=== PATIENT | male | born 1960 | race African-American/Black ===

== ENCOUNTER → 2016-06-09 | Outpatient (CLI) | payer OTHER ==
[~2016-06-09] MED LIST: ACET-1311 PO; ATOR-24 PO; BENZ100C84 PO; CHECK FENTANYL; CMD5 PO; DRGTP12 TD; DXM/4 PO; DXM4 PO; GADAVIST IV PRN; HYDR2.5L TOP; INSDGIPEN SC; INSHRIE SC; INSU1INJ SC; IPRASOL4 INH; IPRASOL4 NEB; LPT40 PO; LVNIS60 SQ; NUTR-7 PO; OMEP40CA41 PO; ONDA4TAB46 PO; OPTIRAY 320 IV PRN; OXGN; PRVHFAIN INH; RXNS20 PO; RXNS5 PO; SYMIN INH; TRAM-10 PO; TRMO115 TOP; VNTHFA/IN INH; WARF3TAB6 PO
--- NOTE | 2016-06-09 08:53 | DIAGNOSTIC IMAGING REPORT ---
Brain MRI WITH AND WITHOUT CONTRAST HISTORY: Metastatic disease to the brain. Lung cancer. TECHNIQUE: Multiplanar multisequence MRI of the brain was performed both before and after the intravenous administration of contrast. COMPARISON STUDY: Brain MRI 02/17/2016. FINDINGS: There is a 5.5 cm area of restricted diffusion involving the left posterior parietal/temporal lobe junction. This is consistent with an acute infarct within the distal left MCA territory. There are additional scattered punctate foci of restricted diffusion seen within the bilateral parietal lobes posteriorly and bilateral frontal lobes at the high convexities. These may represent additional punctate acute/subacute infarcts or areas of metastatic disease. Small retention cyst within the left maxillary sinus. The mastoid air cells are clear. The left frontal lobe mass has slightly decreased in size. This currently measures 2.6 x 2.0 x 1.8 cm. This previous measured 3.3 x 1.9 x 2.0 cm. There is a new 4 mm enhancing lesion within the left occipital lobe on image 10. There is a 2 mm enhancing nodule within the right posterior parietal lobe on image 13 of the axial sequences. There may also be faint 2 mm enhancing nodules within the high convexity of the right frontal lobe on image 17 and image 19 of the axial postcontrast sequences. IMPRESSION: 1. Acute distal left MCA territory infarct. 2. Slight increase in size in the dominant left frontal lobe mass consistent with metastatic disease. 3. There are few new scattered punctate foci of enhancement within the right frontal lobe, bilateral parietal lobes, and left occipital lobe as described above. These could represent metastatic nodules or possibly punctate areas of acute/subacute infarcts. Some of these demonstrate restricted diffusion. One month brain MRI follow-up can be performed for further evaluation. Electronically signed by: Robles Ellison M.D. 06/09/2016 8:51 AM Dictated Date/Time: 06/09/2016 8:39 AM
--- NOTE | 2016-06-09 10:04 | DIAGNOSTIC IMAGING REPORT ---
CHEST CT WITH CONTRAST CT DOSE: 644.34 mGy.cm HISTORY: Lung cancer with metastatic disease to the brain. TECHNIQUE: Multiaxial CT images of the chest were performed following the intravenous administration of contrast. COMPARISON: Chest CTA 02/16/2016. FINDINGS: Severe emphysema. Large right apical bulla containing a small fluid level is not significantly changed. Interval progression of the heterogeneous opacification with enhancement within the right lower lobe. This is highly suspicious for recurrent malignancy. This area measures 6.6 cm. Right pleural effusion has decreased in size. Necrotic right upper lobe medial nodules and right peritracheal lymphadenopathy persists. Multiple new subcentimeter enhancing pleural nodules within the right lung base posteriorly consistent with metastatic disease. The largest measures 7 mm. The heart is normal in size. The thoracic aorta is normal in caliber. Linear filling defects seen within the left lower lobe pulmonary artery consistent with a pulmonary embolus. This is new from the prior study. Small hypodense lesions within the liver remains stable. The spleen and adrenal glands are unremarkable. No suspicious lytic or blastic osseous lesions. IMPRESSION: 1. Interval progression of tumor/metastatic disease within the right hemithorax as described above. 2. Interval development of a nonocclusive left lower lobe pulmonary embolus. 3. Emphysema. 4. Small right pleural fusion has decreased in size. Electronically signed by: Robles Ellison M.D. 06/09/2016 10:02 AM Dictated Date/Time: 06/09/2016 9:25 AM
== END ==
LOC: C.MRI 06:26
DX: Z08 Encounter for follow-up examination after completed treatment for malignant neoplasm (principal); Z85.118 Personal history of other malignant neoplasm of bronchus and lung; Z85.841 Personal history of malignant neoplasm of brain; Z92.3 Personal history of irradiation; I26.99 Other pulmonary embolism without acute cor pulmonale; J43.9 Emphysema, unspecified; R93.8 Abnormal findings on diagnostic imaging of other specified body structures; R90.89 Other abnormal findings on diagnostic imaging of central nervous system

== ENCOUNTER 2016-06-10 10:34 | Inpatient (IN) | payer OTHER ==
[~2016-06-10] VITALS: Ht 162.6 cm; Wt 53.1 kg
[~2016-06-10 10:34] MED LIST changes: -ATOR-24 PO; -CHECK FENTANYL; -CMD5 PO; -DRGTP12 TD; -DXM/4 PO; -GADAVIST IV PRN; -INSDGIPEN SC; -INSHRIE SC; -INSU1INJ SC; -IPRASOL4 INH; -LPT40 PO; -LVNIS60 SQ; -NUTR-7 PO; -OMEP40CA41 PO; -OPTIRAY 320 IV PRN; -OXGN; -RXNS20 PO; -RXNS5 PO; -SYMIN INH; -TRMO115 TOP; -VNTHFA/IN INH; -WARF3TAB6 PO
[2016-06-10 11:41] LABS: COMPLETE YES; EOS % 0.2 %; HEMATOCRIT 34.4 % (42-52); IG% 0.8 %; LYMPH % 8.5 %; LYMPH ABS # 0.99 K/uL (1.2-3.4); MEAN CELL VOLUME 94.5 fL (80-100); MEAN CORPUSCULAR HEMOGLOBIN 31.3 pg (25-34); MEAN CORPUSCULAR HGB CONC 33.1 g/dl (32-36); MEAN PLATELET VOLUME 9.1 fL (7.4-10.4); MONO % 12.9 %; NEUT % 77.6 %; PLATELET COUNT 108 K/uL (130-400); RED BLOOD COUNT 3.64 M/uL (4.7-6.1); WHITE BLOOD COUNT 11.66 K/uL (4.8-10.8)
[2016-06-10 11:50] LABS: CREATININE 0.87 mg/dl (0.60-1.40)
[2016-06-10 11:51] LABS: CALCIUM 8.7 mg/dl (8.5-10.1); POTASSIUM 3.5 mmol/L (3.5-5.1)
[2016-06-10 11:56] LABS: ALB/GLOB RATIO 0.6 (0.9-2); CKMB/CK RATIO 3.1 (0-3.0)
[2016-06-10 12:01] LABS: INR 1.1 (0.9-1.1); PARTIAL THROMBOPLASTIN RATIO 1.2; PROTHROMBIN TIME (PATIENT) 11.6 SECONDS (9.0-12.0)
--- NOTE | 2016-06-10 12:08 | DIAGNOSTIC IMAGING REPORT ---
CHEST ONE VIEW PORTABLE CLINICAL HISTORY: Shortness of breath COMPARISON STUDY: 02/16/2016 FINDINGS: The cardiac and mediastinal contours remain stable. There is a 10 cm right upper lobe cavity. There is right perihilar mass/consolidation. There are right lower lobe airspace opacities. There is right apical pleural thickening.[ IMPRESSION: 1. Developing right lower lobe airspace opacities, possibly representing a postobstructive pneumonitis. 2. Persistent right perihilar mass/consolidation 3. Stable right apical cavity 4. Persistent right apical pleural thickening Electronically signed by: Ab Koenig M.D. 06/10/2016 12:07 PM Dictated Date/Time: 06/10/2016 12:04 PM
[2016-06-10] MEDS ORDERED: SODIUM CHLORIDE 0.9% 1000ML 1,000 ML IV STA (12:13)
[2016-06-10] MEDS ORDERED: HEPARIN 25,000 UNIT/500ML D5W 500 ML IV PRN (12:45)
[2016-06-10] MEDS ORDERED: ONDANSETRON 4 MG TAB PO PRN (13:00)
[2016-06-10] MEDS ORDERED: ACETAMINOPHEN 325 MG TAB PO PRN (13:00)
[2016-06-10] MEDS ORDERED: MoRPHine SULFATE 2 MG/ML CARP IV PRN (13:00)
[2016-06-10] MEDS ORDERED: ONDANSETRON INJ 2 MG/ML 2 ML VIAL IV PRN (13:00)
[2016-06-10] MEDS ORDERED: NITROGLYCERIN 0.4 MG SL PER TAB CHARGE SL PRN (13:00)
[2016-06-10 13:12] VITALS: O2SAT 96; Ht 162.6 cm; Wt 53.1 kg
[2016-06-10] MEDS: HEPARIN IV LOW DOSE NO BOLUS SCH ×2 (13:51→15:00)
[2016-06-10 13:56] LABS: ESTIMATED AVERAGE GLUCOSE 103 mg/dl; HA1C FLAG Normal (Normal)
[2016-06-10 15:00] VITALS: BP 143/87; PULSE 105; TEMP 37; O2SAT 97
--- NOTE | 2016-06-10 15:16 | History and Physical ---
History & Physical Date & Time of Service: Jun 10, 2016 at 15:10 Chief Complaint: Chest Pain; Pulmonary Embolism Primary Care Physician: Rima DOOLEY History of Present Illness Source: patient, clinic records This is a 56 yo m with known stage IV lung carcinoma that is presenting to us from the [facility] with abnormal results of test. The patient was noted to have worsening SOB and pain with inspiration or cough for the past two days. The pain is in the right pectoris and extends to the RUQ. It is sharp and a 7/10. Only occurs with coughing/ deep breathing. The patient was evaluated with a CT chest which revealed progression of his lung cancer and a left sided PE. An MRI brain was also done and it revealed metastasis, mass in the right frontal region with edema (no midline shift or compression of ventricles) and no right posterior MCA infarct. The patient was completely unaware of the infarct and denies any neurological deficits recently. he was sent from the [facility] for therapy of his PE. - He was originally diagnosed with this cancer a year ago and was on palliative chemo. he has not received chemo in approx a year according to the patient. Past Medical/Surgical History Medical Problems: (1) Mal Murphy Bronch/Lung Nos Permanent Comment: Weight loss and shortness of breath Abnormal chest x-ray with CT showing a right upper lobe mass Abnormal PET/CT Status post bronchoscopy and biopsy 12/10/2014 showing non-small cell lung CA Admission for postobstructive pneumonia Initially to have debilitated for combined therapy and patient declined chemotherapy Status post completion of radiation therapy 03/02/2015 received 6660 cGy Systemic chemotherapy Syncopal episode and finding of brain metastasis Status post completion of radiation therapy utilizing stereotactic therapy completed 03/10/2016 received 2100 cGy Status: Chronic (2) Solitary Pulmonary Nodule Status: Chronic Family History Diabetes mellitus FATHER Social History Smoking Status: Former Smoker Drug Use: none Marital Status: single Occupational Status: other Immunizations History of Influenza Vaccine: Yes History of Tetanus Vaccine?: Unknown History of Pneumococcal: No History of Hepatitis B Vaccine: No Multi-Drug Resistant Organisms History of MDRO: No Allergies Coded Allergies: Talc (Verified Allergy, Severe, SOB - Baby Powder, 06/10/16) Home Medications Scheduled Acetaminophen (Tylenol), 650 MG PO Q6 Dexamethasone (Dexamethasone), 4 MG PO TID Hydrocortisone (Topical) (Hydrocortisone), 1 APPLN TOP TID Ipratropium-Albuterol (Duoneb), 1 AMP NEB BID Scheduled PRN Benzonatate (Tessalon Perles), 100 MG PO TID PRN for Cough Ondansetron Hcl (Zofran), 4 MG PO BID PRN for Nausea or Vomiting Tramadol (Ultram), 50 MG PO BID PRN for Pain Review of Systems Constitutional: + fever (had a fever of 104 two days prior and resolved with 2 tylenol, no fever since) Eyes: No worsening of vision ENT: No hearing loss Respiratory: + cough (dry), + dyspnea at rest, + dyspnea on exertion, + shortness of breath, No sputum, No wheezing Cardiovascular: + chest pain (as above) Abdomen: No diarrhea, No nausea, No pain, No vomiting Musculoskeletal: No joint pain, No muscle pain Genitourinary - Male: No dysuria, No hematuria Neurologic: No balance problems, No numbness/tingling, No paralysis, No vertigo , No weakness Psychiatric: No anxiety, No depression symptoms Endocrine: + fatigue Integumentary: No rash Physical Exam Vital Signs Date Time Temp Pulse Resp B/P Pulse Ox O2 Delivery O2 Flow Rate FiO2 06/10/16 14:53 92 137/83 97 06/10/16 13:12 96 Room Air 06/10/16 13:00 102 23 96 06/10/16 12:58 147/88 06/10/16 12:45 99 26 143/86 96 Room Air 2.0 Nasal Cannula 06/10/16 12:35 102 06/10/16 12:30 102 15 143/85 96 06/10/16 12:00 101 19 136/87 97 06/10/16 11:34 96 Nasal Cannula 2.0 06/10/16 11:30 102 28 130/84 97 06/10/16 10:53 96 Nasal Cannula 2.0 06/10/16 10:52 96 Nasal Cannula 2.0 06/10/16 10:49 36.5 103 18 151/85 94 Nasal Cannula 2.0 06/10/16 10:47 108 General Appearance: WD/WN, no apparent distress Head: normocephalic, atraumatic Eyes: normal inspection ENT: normal ENT inspection Neck: supple Respiratory/Chest: + decreased breath sounds (bilat bases, more echo like breath sounds in right upper long, occasional wheeze) Cardiovascular: regular rate, rhythm, no murmur Abdomen/GI: normal bowel sounds, soft, + pertinent finding (tender to palpation of RUQ) Back: normal inspection Extremities/Musculoskelatal: no calf tenderness, no pedal edema, normal range of motion Neurologic/Psych: doughnut maker II-XII nml as tested, no motor/sensory deficits, alert, normal mood/affect, oriented x 3 Skin: normal color, warm/dry, no rash Lymphatic: no adenopathy Diagnostics Laboratory Results Results Past 24 Hours Test 06/10/16 11:21 Range/Units White Blood Count 11.66 4.8-10.8 K/uL Red Blood Count 3.64 4.7-6.1 M/uL Hemoglobin 11.4 14.0-18.0 g/dL Hematocrit 34.4 42-52 % Mean Corpuscular Volume 94.5 80-100 fL Mean Corpuscular Hemoglobin 31.3 25-34 pg Mean Corpuscular Hemoglobin Concent 33.1 32-36 g/dl Platelet Count 108 130-400 K/uL Mean Platelet Volume 9.1 7.4-10.4 fL Neutrophils (%) (Auto) 77.6 % Lymphocytes (%) (Auto) 8.5 % Monocytes (%) (Auto) 12.9 % Eosinophils (%) (Auto) 0.2 % Basophils (%) (Auto) 0.0 % Neutrophils # (Auto) 9.06 1.4-6.5 K/uL Lymphocytes # (Auto) 0.99 1.2-3.4 K/uL Monocytes # (Auto) 1.50 0.11-0.59 K/uL Eosinophils # (Auto) 0.02 0-0.5 K/uL Basophils # (Auto) 0.00 0-0.2 K/uL RDW Standard Deviation 48.5 36.4-46.3 fL RDW Coefficient of Variation 14.1 11.5-14.5 % Immature Granulocyte % (Auto) 0.8 % Immature Granulocyte # (Auto) 0.09 0.00-0.02 K/uL Prothrombin Time 11.6 9.0-12.0 SECONDS Prothromb Time International Ratio 1.1 0.9-1.1 Activated Partial Thromboplast Time 31.3 21.0-31.0 SECONDS Partial Thromboplastin Ratio 1.2 Sodium Level 138 136-145 mmol/L Potassium Level 3.5 3.5-5.1 mmol/L Chloride Level 104 98-107 mmol/L Carbon Dioxide Level 24 21-32 mmol/L Anion Gap 10.0 3-11 mmol/L Blood Urea Nitrogen 16 7-18 mg/dl Creatinine 0.87 0.60-1.40 mg/dl Est Creatinine Clear Calc Drug Dose 70.8 ml/min Estimated GFR () 112.6 Estimated GFR (Non- 97.2 BUN/Creatinine Ratio 18.0 10-20 Random Glucose 123 70-99 mg/dl Estimated Average Glucose 103 mg/dl Hemoglobin A1c 5.2 4.5-5.6 % Calcium Level 8.7 8.5-10.1 mg/dl Total Bilirubin 0.6 0.2-1 mg/dl Aspartate Amino Transf (AST/SGOT) 12 15-37 U/L Alanine Aminotransferase (ALT/SGPT) 16 12-78 U/L Alkaline Phosphatase 106 45-117 U/L Total Creatine Kinase 36 39-308 U/L Creatine Kinase MB 1.1 0.5-3.6 ng/ml Creatine Kinase MB Ratio 3.1 0-3.0 Troponin I 0.163 0-0.045 ng/ml Total Protein 6.5 6.4-8.2 gm/dl Albumin 2.5 3.4-5.0 gm/dl Globulin 4.0 2.5-4.0 gm/dl Albumin/Globulin Ratio 0.6 0.9-2 Lipase 123 73-393 U/L Diagnostic Radiology Brain MRI WITH AND WITHOUT CONTRAST HISTORY: Metastatic disease to the brain. Lung cancer. TECHNIQUE: Multiplanar multisequence MRI of the brain was performed both before and after the intravenous administration of contrast. COMPARISON STUDY: Brain MRI 02/17/2016. FINDINGS: There is a 5.5 cm area of restricted diffusion involving the left posterior parietal/temporal lobe junction. This is consistent with an acute infarct within the distal left MCA territory. There are additional scattered punctate foci of restricted diffusion seen within the bilateral parietal lobes posteriorly and bilateral frontal lobes at the high convexities. These may represent additional punctate acute/subacute infarcts or areas of metastatic disease. Small retention cyst within the left maxillary sinus. The mastoid air cells are clear. The left frontal lobe mass has slightly decreased in size. This currently measures 2.6 x 2.0 x 1.8 cm. This previous measured 3.3 x 1.9 x 2.0 cm. There is a new 4 mm enhancing lesion within the left occipital lobe on image 10. There is a 2 mm enhancing nodule within the right posterior parietal lobe on image 13 of the axial sequences. There may also be faint 2 mm enhancing nodules within the high convexity of the right frontal lobe on image 17 and image 19 of the axial postcontrast sequences. IMPRESSION: 1. Acute distal left MCA territory infarct. 2. Slight increase in size in the dominant left frontal lobe mass consistent with metastatic disease. 3. There are few new scattered punctate foci of enhancement within the right frontal lobe, bilateral parietal lobes, and left occipital lobe as described above. These could represent metastatic nodules or possibly punctate areas of acute/subacute infarcts. Some of these demonstrate restricted diffusion. One month brain MRI follow-up can be performed for further evaluation. CHEST CT WITH CONTRAST CT DOSE: 644.34 mGy.cm HISTORY: Lung cancer with metastatic disease to the brain. TECHNIQUE: Multiaxial CT images of the chest were performed following the intravenous administration of contrast. COMPARISON: Chest CTA 02/16/2016. FINDINGS: Severe emphysema. Large right apical bulla containing a small fluid level is not significantly changed. Interval progression of the heterogeneous opacification with enhancement within the right lower lobe. This is highly suspicious for recurrent malignancy. This area measures 6.6 cm. Right pleural effusion has decreased in size. Necrotic right upper lobe medial nodules and right peritracheal lymphadenopathy persists. Multiple new subcentimeter enhancing pleural nodules within the right lung base posteriorly consistent with metastatic disease. The largest measures 7 mm. The heart is normal in size. The thoracic aorta is normal in caliber. Linear filling defects seen within the left lower lobe pulmonary artery consistent with a pulmonary embolus. This is new from the prior study. Small hypodense lesions within the liver remains stable. The spleen and adrenal glands are unremarkable. No suspicious lytic or blastic osseous lesions. IMPRESSION: 1. Interval progression of tumor/metastatic disease within the right hemithorax as described above. 2. Interval development of a nonocclusive left lower lobe pulmonary embolus. 3. Emphysema. 4. Small right pleural fusion has decreased in size. [~ rep ct add3]] CHEST ONE VIEW PORTABLE CLINICAL HISTORY: Shortness of breath COMPARISON STUDY: 02/16/2016 FINDINGS: The cardiac and mediastinal contours remain stable. There is a 10 cm right upper lobe cavity. There is right perihilar mass/consolidation. There are right lower lobe airspace opacities. There is right apical pleural thickening.[ IMPRESSION: 1. Developing right lower lobe airspace opacities, possibly representing a postobstructive pneumonitis. 2. Persistent right perihilar mass/consolidation 3. Stable right apical cavity 4. Persistent right apical pleural thickening EKG hr 102 Qtc 458 no ischemic changes sinus arrhythmia/ sinus tach no ectopic beats Impression Assessment and Plan This is a 56 yo m with know stage IV lung carcinoma that has progression of his disease, new MCA infarct and PE. We discussed the R/B/A of therapy for the PE because there is a lot of concern revolving around hemorrhage from the new infarct or masses. After discussing this with the patient it was decided that we would continue the heparin therapy and monitor neuro checks frequently. Left pulmonary embolus - risk factor known malignancy , resulted in elevated troponin indicating right heart strain -Heparin and once again the R/B/A were discussed and patient was agreeable to this therapy - neurochecks q 4 hours because of concern for evolving in hemorrhagic - recheck of CBC in the am - serial troponin - most likely supply and demand Left Distal MCA infarct, possibly secondary to emboli of an unknown source - Carotid doppler - echo in am - atorvastatin 40 mg started - FLP - HBA1C Non small cell lung cancer with brain metastasis - consult hem onc - o2 per nursing protocol - bmp in am to monitor for paraneoplastic abnormalities such as changes in sodium DVT Prophylaxis - heparin drip Resident Physician Supervision Note: I interviewed and examined the patient. Discussed with Dr. Stratton and agree with findings and plan as documented in the note. Any exceptions or clarifications are listed here: None Documented By: Valente Joseph some chest pain and sob. fever to 104 two days ago, took tylenol, no recurrence. nonproductive cough. no focal numbness or weakness. mostly sent to ER due to abnormal imaging but did note cp/sob vitals noted, nad, heent nc at mmm, cardio reg no r/m/g, lungs cta but different "echo-like" air sounds R mid/upper lung no r/r/w good effort no accessory muscle use. cn 2-12 grossly intact except ??very slight strabismus, no motor/sensory deficits, no pallor or icterus a/p metastatic lung ca - worsening - heme/onc eval, he expresses desire for treatment if possible CVA - appearing more than likely embolic given distribution. echo / carotids to eval for source (would also consider paradoxical embolus given PE - but since he'll need anticoagulated for this as well, no clear need to check TAINA that would not change treatment); check lipids/A1c/follow BP for completeness; w need for anticoagulation for PE - follow neurochecks closely. d/w pt and he agrees w this line of treatment/understands risks/benefits and complexity of the situation PE - d/w neurology regarding bleed risk w stroke - and not high enough to contraindicate anticoagulation. low dose heparin, follow sx recent fever - no other acute sx of infection - hasn't recurred, check procalcitonin Advanced Directives Existing Advance Directive: Yes Existing Living Will: Yes Existing Power of Cvor Nurse: Yes VTE Prophylaxis VTE Risk Assessment Done? Y/N: Yes Risk Level: Moderate Given or contraindicated: Other Anticoagulation Social Service Consult None Apply Note Total Time: Critical Care 30 - 74 minutes Additional Copies To Rima DOOLEY
--- NOTE | 2016-06-10 15:25 | EMERGENCY ROOM VISIT NOTE ---
History Report prepared by Mauroibarmida: Linden Mendoza Under the Supervision of: Dr. Valente New D.O. First contact with patient: 11:41 Chief Complaint: SHORTNESS OF BREATH Stated Complaint: EVAL Nursing Triage Summary: Pt presents to room B06 via Ambulance for evaluation of a blood clot in lungs. Pt reports he has ct scan of his chest yesterday. pt reports pain in left chest and shortness of breath at times. EMS reports that pt has hx of lung cancer with mets to brain. History of Present Illness The patient is a 56 year old male prisoner who presents to the Emergency Room with complaints of persistent shortness of breath for the past two days. The breathing difficulty is not worsened with exertion. He also complains of pain in his chest. The patient denies any recent headaches, trouble speaking, weakness, or numbness. He was never told that he had an infarct on brain MRI. The patient has a history of stage IV lung cancer, which was recently shown to be worsening on CT scan that he had yesterday. The patient was told that he would need blood thinners as the CT scan also showed a PE. The patient has not had any recent brain bleeds. He also denies rectal bleeding, hematuria, or hemoptysis. Patient denies headache, change in vision, fevers, nausea, vomiting , diarrhea, pain with urination, and melena. Source of History: patient Onset: two days Position: other (respiratory) Quality: other (short of breath) Timing: other (persistent) Associated Symptoms: + chest pain, No diarrhea, No fevers, No headache, No hematochezia, No melena, No nausea, No numbness, No urinary symptoms, No vomiting, No weakness Review of Systems See HPI for pertinent positives & negatives. A total of 10 systems reviewed and were otherwise negative. Past Medical & Surgical Medical Problems: (1) Chest pain (2) Mal Murphy Bronch/Lung Nos (3) Metastatic cancer to brain (4) Pulmonary embolism (5) Solitary Pulmonary Nodule Family History No pertinent family history Social History Smoking Status: Former Smoker Drug Use: none Marital Status: single Housing Status: other Occupation Status: other Current/Historical Medications Scheduled Acetaminophen (Tylenol), 650 MG PO Q6 Dexamethasone (Dexamethasone), 4 MG PO TID Hydrocortisone (Topical) (Hydrocortisone), 1 APPLN TOP TID Ipratropium-Albuterol (Duoneb), 1 AMP NEB BID Scheduled PRN Benzonatate (Tessalon Perles), 100 MG PO TID PRN for Cough Ondansetron Hcl (Zofran), 4 MG PO BID PRN for Nausea or Vomiting Tramadol (Ultram), 50 MG PO BID PRN for Pain Allergies Coded Allergies: Talc (Verified Allergy, Severe, SOB - Baby Powder, 06/10/16) Physical Exam Vital Signs Date Time Temp Pulse Resp B/P Pulse Ox O2 Delivery O2 Flow Rate FiO2 06/10/16 12:45 99 26 143/86 96 Room Air 2.0 Nasal Cannula 06/10/16 12:35 102 06/10/16 12:30 102 15 143/85 96 06/10/16 12:00 101 19 136/87 97 06/10/16 11:34 96 Nasal Cannula 2.0 06/10/16 11:30 102 28 130/84 97 06/10/16 10:53 96 Nasal Cannula 2.0 06/10/16 10:52 96 Nasal Cannula 2.0 06/10/16 10:49 36.5 103 18 151/85 94 Nasal Cannula 2.0 06/10/16 10:47 108 Physical Exam GENERAL: Sitting up in bed, disheveled, no acute distress, nontoxic. EYE EXAM: normal conjunctiva, PERRL and EOM's grossly intact OROPHARYNX: no exudate, no erythema, lips, buccal mucosa, and tongue normal and mucous membranes are moist NECK: supple, no nuchal rigidity, no adenopathy, non-tender LUNGS: Clear to auscultation. Normal chest wall mechanics HEART: Tachycardic. No murmurs, S1 normal and S2 normal ABDOMEN: abdomen soft, non-tender, normo-active bowel sounds, no masses, no rebound or guarding. BACK: Back is symmetrical on inspection and there is no deformity, no midline tenderness, no CVA tenderness. SKIN: no rashes and no bruising UPPER EXTREMITIES: upper extremities are grossly normal. LOWER EXTREMITIES: No pitting edema. NEURO EXAM: Normal sensorium, cranial nerves II-XII grossly intact, normal speech, no gross weakness of arms, no gross weakness of legs. Gross sensation intact. Medical Decision & Procedures ER Provider Diagnostic Interpretation: Transfer records: CT CHEST: Interval progression of tumor within right hemithorax. Left lower lobe PE. MRI BRAIN: Left MCA infarct with questionable additional mets vs infarcts. Xray results per the radiologist and my interpretation. CHEST ONE VIEW PORTABLE CLINICAL HISTORY: Shortness of breath COMPARISON STUDY: 02/16/2016 FINDINGS: The cardiac and mediastinal contours remain stable. There is a 10 cm right upper lobe cavity. There is right perihilar mass/consolidation. There are right lower lobe airspace opacities. There is right apical pleural thickening.[ IMPRESSION: 1. Developing right lower lobe airspace opacities, possibly representing a postobstructive pneumonitis. 2. Persistent right perihilar mass/consolidation 3. Stable right apical cavity 4. Persistent right apical pleural thickening Electronically signed by: Ab Koenig M.D. 06/10/2016 12:07 PM Dictated Date/Time: 06/10/2016 12:04 PM Laboratory Results 06/10/16 11:21 Red Blood Count 3.64, Mean Corpuscular Volume 94.5, Mean Corpuscular Hemoglobin 31.3, Mean Corpuscular Hemoglobin Concent 33.1, Mean Platelet Volume 9.1, Neutrophils (%) (Auto) 77.6, Lymphocytes (%) (Auto) 8.5, Monocytes (%) (Auto) 12.9, Eosinophils (%) (Auto) 0.2, Basophils (%) (Auto) 0.0, Neutrophils # (Auto ) 9.06, Lymphocytes # (Auto) 0.99, Monocytes # (Auto) 1.50, Eosinophils # (Auto ) 0.02, Basophils # (Auto) 0.00 06/10/16 11:21 Test 06/10/16 11:21 White Blood Count 11.66 K/uL (4.8-10.8) Red Blood Count 3.64 M/uL (4.7-6.1) Hemoglobin 11.4 g/dL (14.0-18.0) Hematocrit 34.4 % (42-52) Mean Corpuscular Volume 94.5 fL (80-100) Mean Corpuscular Hemoglobin 31.3 pg (25-34) Mean Corpuscular Hemoglobin Concent 33.1 g/dl (32-36) Platelet Count 108 K/uL (130-400) Mean Platelet Volume 9.1 fL (7.4-10.4) Neutrophils (%) (Auto) 77.6 % Lymphocytes (%) (Auto) 8.5 % Monocytes (%) (Auto) 12.9 % Eosinophils (%) (Auto) 0.2 % Basophils (%) (Auto) 0.0 % Neutrophils # (Auto) 9.06 K/uL (1.4-6.5) Lymphocytes # (Auto) 0.99 K/uL (1.2-3.4) Monocytes # (Auto) 1.50 K/uL (0.11-0.59) Eosinophils # (Auto) 0.02 K/uL (0-0.5) Basophils # (Auto) 0.00 K/uL (0-0.2) RDW Standard Deviation 48.5 fL (36.4-46.3) RDW Coefficient of Variation 14.1 % (11.5-14.5) Immature Granulocyte % (Auto) 0.8 % Immature Granulocyte # (Auto) 0.09 K/uL (0.00-0.02) Prothrombin Time 11.6 SECONDS (9.0-12.0) Prothromb Time International Ratio 1.1 (0.9-1.1) Activated Partial Thromboplast Time 31.3 SECONDS (21.0-31.0) Partial Thromboplastin Ratio 1.2 Anion Gap 10.0 mmol/L (3-11) Est Creatinine Clear Calc Drug Dose 70.8 ml/min Estimated GFR () 112.6 Estimated GFR (Non- 97.2 BUN/Creatinine Ratio 18.0 (10-20) Estimated Average Glucose 103 mg/dl Hemoglobin A1c 5.2 % (4.5-5.6) Calcium Level 8.7 mg/dl (8.5-10.1) Total Bilirubin 0.6 mg/dl (0.2-1) Aspartate Amino Transf (AST/SGOT) 12 U/L (15-37) Alanine Aminotransferase (ALT/SGPT) 16 U/L (12-78) Alkaline Phosphatase 106 U/L (45-117) Total Creatine Kinase 36 U/L (39-308) Creatine Kinase MB 1.1 ng/ml (0.5-3.6) Creatine Kinase MB Ratio 3.1 (0-3.0) Troponin I 0.163 ng/ml (0-0.045) Total Protein 6.5 gm/dl (6.4-8.2) Albumin 2.5 gm/dl (3.4-5.0) Globulin 4.0 gm/dl (2.5-4.0) Albumin/Globulin Ratio 0.6 (0.9-2) Lipase 123 U/L (73-393) Laboratory results per my review. Medications Administered Medications (Trade) Dose Ordered Sig/Jevon Route Start Time Stop Time Status Last Admin Dose Admin Sodium Chloride 1,000 ml @ 999 mls/hr Q1H1M STAT IV 06/10/16 12:13 06/10/16 13:13 DC 06/10/16 12:37 999 MLS/HR Heparin Sodium/ Dextrose (Heparin 25,000 Unit/500ml D5W) 500 ml @ 19 mls/hr Q24H PRN IV 06/10/16 12:45 06/10/16 13:43 DC 06/10/16 12:40 19 MLS/HR ECG Indication: SOB/dyspnea Rate (beats per minute): 102 Rhythm: sinus tachycardia Findings: other (normal axis, poor baseline, LVH) ED Course ED COURSE: Vital signs were reviewed and showed tachycardia. The patients medical record was reviewed The above diagnostic studies were performed and reviewed. ED treatments and interventions as stated above. 1200: The patient was evaluated in room B6. A complete history and physical examination was performed. 1213: NSS 1000 ml @ 999 mls/hr. 1213: Discussed the case with Dr. Mars, [facility] Hospitalist. The patient will be evaluated. 1215: Heparin Sodium / Dextrose 1 ea. 1215: Upon reevaluation, the patient is stable.I discussed my findings with the patient and he understands and agrees with the treatment plan. Based on the patients age, coexisting illnesses, exam and lab findings the decision to treat as an inpatient was made. The patient remained stable while under my care. The patient will be evaluated for further management. Medical Decision Differential diagnoses includes but is not limited to acute coronary syndrome, myocardial infarction, pericarditis, pulmonary embolus, aortic dissection, pneumonia, pneumothorax, musculoskeletal, shingles, esophageal. Patient is a 56-year-old male with known lung cancer who presents the ER with chest pain and tachycardia. Hit a CT of his chest performed yesterday which showed left lower lobe PEs. MRI was also performed yesterday which showed an acute stroke and possible multiple metastatic brain metastases versus multiple small emboli. Patient was updated regards to these findings. His troponin was elevated as expected. Patient was fairly nonfocal on exam. He had no bleeding risk factors and consequently was placed on heparin drip following discussion with internal medicine. I did not give him a bolus. I felt heparin was a status at this point as these small infarcts could be tiny emboli. He was tachycardic with a positive troponin I felt was prudent at this time start him on anticoagulation. Patient was updated bedside and is admitted to internal medicine. He is monitored closely. Consults Time Called: 1200 Consulting Physician: Dr. Mars [facility] Hospitalist Returned Call: 1213 1213: Discussed the case with Dr. Mars [facility]. The patient will be evaluated. Impression Primary Impression: Pulmonary embolism Additional Impressions: Metastatic disease Stroke Elevated troponin Critical Care I have personally spent 50 minutes of critical care time in the direct management of this patient. This includes bedside care, interpretation of diagnostic studies, and testing, discussion with consultants, patient, and family members, and other required patient management activities. This 50 minutes is in excess of all separately billable procedures. Scribe Attestation The scribe's documentation has been prepared under my direction and personally reviewed by me in its entirety. I confirm that the note above accurately reflects all work, treatment, procedures, and medical decision making performed by me. Departure Information Dispostion Being Evaluated By Hospitalist Referrals Rima DOOLEY (PCP) Patient Instructions My [facility] Health Problem Qualifiers Primary Impression: Pulmonary embolism Pulmonary embolism type: other Chronicity: acute Acute cor pulmonale presence: without acute cor pulmonale Qualified Codes: I26.99 - Other pulmonary embolism without acute cor pulmonale Additional Impressions: Stroke CVA mechanism: unspecified Qualified Codes: I63.9 - Cerebral infarction, unspecified
[2016-06-10 16:00] VITALS: O2SAT 97
--- NOTE | 2016-06-10 16:29 | DIAGNOSTIC IMAGING REPORT ---
BILATERAL CAROTID DOPPLER STUDY HISTORY: Left MCA stroke. COMPARISON: None. TECHNIQUE: Real-time, grayscale, and color Doppler sonography of the carotid arteries was performed. Imaging reviewed in the transverse and longitudinal planes. All measurements were calculated based on NASCET criteria. FINDINGS: Antegrade flow is seen in the bilateral vertebral arteries. The brachial pressures are hemodynamically similar. The peak systolic velocity within the right ICA is 64 cm/s. The right systolic ratio is 0.7. The peak systolic velocity within the left ICA is 70 cm/s. The left systolic ratio is 1.0. IMPRESSION: No hemodynamically significant stenosis seen within the carotid arteries. Electronically signed by: Robles Ellison M.D. 06/10/2016 4:27 PM Dictated Date/Time: 06/10/2016 4:26 PM
[2016-06-10] MEDS: HYDROCORTISONE 2.5% CR 30 GM TUBE EXT SCH ×2 (16:40→19:39)
[2016-06-10] MEDS: DEXAMETHASONE 4 MG TAB PO SCH ×2 (16:40→19:39)
[2016-06-10] MEDS ORDERED: PHARMACIST DISCHARGE MED REC CONSULT PRN (16:45)
[2016-06-10] MEDS: BENZONATATE 100MG CAP PO PRN (17:48)
[2016-06-10] MEDS ORDERED: ACETAMINOPHEN 325 MG TAB PO SCH (18:00)
[2016-06-10 19:29] VITALS: BP 126/78; PULSE 90; TEMP 37.1; O2SAT 97
[2016-06-10] MEDS: TRAMADOL HCL 50 MG TAB PO PRN (19:38)
[2016-06-10 19:54] LABS: PARTIAL THROMBOPLASTIN RATIO 1.4
[2016-06-10] MEDS: ALBUT/IPRATROP 3MG/0.5MG NEB 3 ML VIAL INH SCH (20:35)
[2016-06-10 20:42] VITALS: PULSE 114; O2SAT 95
[2016-06-10] MEDS ORDERED: HEPARIN IV BOLUS 4,000 UNIT in SYRINGE 0 ML IV ONE (21:00)
[2016-06-11] VITALS (13 sets, daily range): BP systolic 125–150; BP diastolic 68–84; PULSE 96–105; TEMP 36.4–36.9; O2SAT 90–96
[2016-06-11 03:51] LABS: PARTIAL THROMBOPLASTIN RATIO 1.9
[2016-06-11 06:42] LABS: HEMATOCRIT 30.4 % (42-52); MEAN CELL VOLUME 92.1 fL (80-100); MEAN CORPUSCULAR HEMOGLOBIN 30.6 pg (25-34); MEAN CORPUSCULAR HGB CONC 33.2 g/dl (32-36); MEAN PLATELET VOLUME 9.2 fL (7.4-10.4); PLATELET COUNT 130 K/uL (130-400); WHITE BLOOD COUNT 8.96 K/uL (4.8-10.8)
[2016-06-11] MEDS: ALBUT/IPRATROP 3MG/0.5MG NEB 3 ML VIAL INH SCH ×4 (07:11→19:52)
[2016-06-11 07:12] LABS: PARTIAL THROMBOPLASTIN RATIO 1.6
[2016-06-11 07:17] LABS: BUN/CREATININE RATIO 17.5 (10-20); CALCIUM 8.8 mg/dl (8.5-10.1); CHOLESTEROL/HDL RATIO 2.9; CREATININE 0.92 mg/dl (0.60-1.40); POTASSIUM 4.2 mmol/L (3.5-5.1)
[2016-06-11] MEDS: DEXAMETHASONE 4 MG TAB PO SCH ×3 (08:57→21:22)
[2016-06-11] MEDS: ATORVASTATIN 40 MG TAB PO SCH (08:57)
[2016-06-11] MEDS: HYDROCORTISONE 2.5% CR 30 GM TUBE EXT SCH ×3 (08:57→21:00)
[2016-06-11] MEDS: BENZONATATE 100MG CAP PO PRN ×2 (08:58→21:33)
[2016-06-11] MEDS ORDERED: ALBUTEROL 0.083% NEBU SOLN 3 ML VIAL INH PRN (09:00)
--- NOTE | 2016-06-11 09:07 | Progress Note ---
Subjective Date of Service: Jun 11, 2016. Problem List Medical Problems: (1) Dizziness Status: Acute (2) Elevated troponin Status: Acute (3) Metastatic disease Status: Acute (4) Metastatic lung cancer (metastasis from lung to other site) Status: Acute (5) Stroke Status: Acute (6) Syncope Status: Acute (7) Vasogenic brain edema Status: Acute Objective Vital Signs Date Time Temp Pulse Resp B/P Pulse Ox O2 Delivery O2 Flow Rate FiO2 06/11/16 07:52 36.4 96 16 125/68 95 06/11/16 04:00 95 Nasal Cannula 2.0 06/11/16 03:14 36.9 97 15 131/79 95 Nasal Cannula 2.0 06/11/16 00:00 91 Nasal Cannula 2.0 06/10/16 20:42 114 18 95 Nasal Cannula 2.0 06/10/16 20:00 Nasal Cannula 2.0 06/10/16 19:29 37.1 90 18 126/78 97 06/10/16 16:00 97 Nasal Cannula 2.0 06/10/16 15:00 97 Nasal Cannula 2.0 06/10/16 15:00 37.0 105 23 143/87 97 Nasal Cannula 2.0 06/10/16 14:53 92 137/83 97 06/10/16 13:12 96 Room Air 06/10/16 13:00 102 23 96 06/10/16 12:58 147/88 06/10/16 12:45 99 26 143/86 96 Room Air 2.0 Nasal Cannula 06/10/16 12:35 102 06/10/16 12:30 102 15 143/85 96 06/10/16 12:00 101 19 136/87 97 06/10/16 11:34 96 Nasal Cannula 2.0 06/10/16 11:30 102 28 130/84 97 06/10/16 10:53 96 Nasal Cannula 2.0 06/10/16 10:52 96 Nasal Cannula 2.0 06/10/16 10:49 36.5 103 18 151/85 94 Nasal Cannula 2.0 06/10/16 10:47 108 Laboratory Results Last 24 Hours Test 06/10/16 11:21 06/10/16 17:05 06/10/16 19:34 06/10/16 22:06 White Blood Count 11.66 K/uL Red Blood Count 3.64 M/uL Hemoglobin 11.4 g/dL Hematocrit 34.4 % Mean Corpuscular Volume 94.5 fL Mean Corpuscular Hemoglobin 31.3 pg Mean Corpuscular Hemoglobin Concent 33.1 g/dl Platelet Count 108 K/uL Mean Platelet Volume 9.1 fL Neutrophils (%) (Auto) 77.6 % Lymphocytes (%) (Auto) 8.5 % Monocytes (%) (Auto) 12.9 % Eosinophils (%) (Auto) 0.2 % Basophils (%) (Auto) 0.0 % Neutrophils # (Auto) 9.06 K/uL Lymphocytes # (Auto) 0.99 K/uL Monocytes # (Auto) 1.50 K/uL Eosinophils # (Auto) 0.02 K/uL Basophils # (Auto) 0.00 K/uL RDW Standard Deviation 48.5 fL RDW Coefficient of Variation 14.1 % Immature Granulocyte % (Auto) 0.8 % Immature Granulocyte # (Auto) 0.09 K/uL Prothrombin Time 11.6 SECONDS Prothromb Time International Ratio 1.1 Activated Partial Thromboplast Time 31.3 SECONDS 35.2 SECONDS Partial Thromboplastin Ratio 1.2 1.4 Sodium Level 138 mmol/L Potassium Level 3.5 mmol/L Chloride Level 104 mmol/L Carbon Dioxide Level 24 mmol/L Anion Gap 10.0 mmol/L Blood Urea Nitrogen 16 mg/dl Creatinine 0.87 mg/dl Est Creatinine Clear Calc Drug Dose 70.8 ml/min Estimated GFR () 112.6 Estimated GFR (Non- 97.2 BUN/Creatinine Ratio 18.0 Random Glucose 123 mg/dl Estimated Average Glucose 103 mg/dl Hemoglobin A1c 5.2 % Calcium Level 8.7 mg/dl Total Bilirubin 0.6 mg/dl Aspartate Amino Transf (AST/SGOT) 12 U/L Alanine Aminotransferase (ALT/SGPT) 16 U/L Alkaline Phosphatase 106 U/L Total Creatine Kinase 36 U/L Creatine Kinase MB 1.1 ng/ml Creatine Kinase MB Ratio 3.1 Troponin I 0.163 ng/ml 0.146 ng/ml Total Protein 6.5 gm/dl Albumin 2.5 gm/dl Globulin 4.0 gm/dl Albumin/Globulin Ratio 0.6 Lipase 123 U/L Procalcitonin 0.17 ng/mL Test 06/11/16 03:06 06/11/16 06:05 Activated Partial Thromboplast Time 48.9 SECONDS 42.6 SECONDS Partial Thromboplastin Ratio 1.9 1.6 White Blood Count 8.96 K/uL Red Blood Count 3.30 M/uL Hemoglobin 10.1 g/dL Hematocrit 30.4 % Mean Corpuscular Volume 92.1 fL Mean Corpuscular Hemoglobin 30.6 pg Mean Corpuscular Hemoglobin Concent 33.2 g/dl RDW Standard Deviation 46.2 fL RDW Coefficient of Variation 13.7 % Platelet Count 130 K/uL Mean Platelet Volume 9.2 fL Sodium Level 137 mmol/L Potassium Level 4.2 mmol/L Chloride Level 104 mmol/L Carbon Dioxide Level 23 mmol/L Anion Gap 10.0 mmol/L Blood Urea Nitrogen 16 mg/dl Creatinine 0.92 mg/dl Est Creatinine Clear Calc Drug Dose 67.0 ml/min Estimated GFR () 108.1 Estimated GFR (Non- 93.3 BUN/Creatinine Ratio 17.5 Random Glucose 151 mg/dl Calcium Level 8.8 mg/dl Troponin I 0.100 ng/ml Triglycerides Level 177 mg/dl Cholesterol Level 197 mg/dl HDL Cholesterol 69 mg/dl LDL Cholesterol, Calculated 93 mg/dl VLDL Cholesterol, Calculated 35 mg/dl Cholesterol/HDL Ratio 2.9 Assessment and Plan metastatic lung ca - worsening - heme/onc eval pending, he expresses desire for treatment if possible CVA - appearing more than likely embolic given distribution. carotids clear. echo pending (although w PE will really need anticoagulated anyway, so if occult afib, if paradoxical embolus, further w/u would not dramatically alter treatment). surprisingly no focal neuro deficits, clinically stable PE - d/w neurology regarding bleed risk w stroke - and not high enough to contraindicate anticoagulation. low dose heparin, follow sx, has improved. no evidence of bleeding recent fever - no other acute sx of infection - hasn't recurred, procalcitonin overall reassuring wheezing - strongly suspect baseline COPD. increase nebs to duonebs QID, add prn albuterol
--- NOTE | 2016-06-11 09:13 | DIAGNOSTIC IMAGING REPORT ---
CHEST ONE VIEW PORTABLE CLINICAL HISTORY: Shortness of breath COMPARISON STUDY: 06/10/2016 FINDINGS: The cardiac and mediastinal contours remain stable.r there is an 8.5 cm right upper lung zone cavity. There is persistent right perihilar mass/consolidation. Minor right basilar airspace opacities persist. There is underlying pulmonary emphysema.[ IMPRESSION: 1. Persistent right apical cavity 2. Persistent right perihilar mass/consolidation 3. Persistent subtle right basilar airspace opacities 4. Severe emphysema Electronically signed by: Ab Koenig M.D. 06/11/2016 9:12 AM Dictated Date/Time: 06/11/2016 9:11 AM
--- NOTE | 2016-06-11 14:37 | Oncology Consultation ---
Oncology/Heme Consultation Date of Consultation: Jun 11, 2016. Attending Physician: Valente Joseph D.O. Reason for Consultation: History of non-small cell lung carcinoma History of Present Illness Mr. uY a 56-year-old inmate that has a history of locally advanced non- small cell lung carcinoma. This dates back to November 2014. He'll presented with a very large right lung mass that appeared to involve the right lower lobe and right middle lobe. At that time we posed chemoradiotherapy. He refused chemotherapy. He did go on to receive radiation therapy. Following that and after further conversations he did receive single agent Taxol with very little change in his disease. His last PET scan shows stability. He did have the finding of a brain metastasis in February of last year and is status post stereotactic radiation for that. He now presents with a febrile episode as well as chest pain particular on the right side and in the middle of his chest. A chest CT scan shows a pneumonic process as well as probable progression of disease. A left-sided pulmonary embolus was also noted. He states that his weight has been stable although he appears to have lost weight to me. His difficult to grade his performance status and that he states he spends most of his days in his cell. He denies hemoptysis. He denies new headache. Past Medical/Surgical History Medical Problems: (1) Dizziness Status: Acute (2) Elevated troponin Status: Acute (3) Metastatic disease Status: Acute (4) Metastatic lung cancer (metastasis from lung to other site) Status: Acute (5) Stroke Status: Acute (6) Syncope Status: Acute (7) Vasogenic brain edema Status: Acute Family History Diabetes mellitus FATHER Social History Smoking Status: Former Smoker Drug Use: none Marital Status: single Housing Status: other Occupation Status: other Allergies Coded Allergies: Talc (Verified Allergy, Severe, SOB - Baby Powder, 06/10/16) Home Medications Scheduled Acetaminophen (Tylenol), 650 MG PO Q6 Dexamethasone (Dexamethasone), 4 MG PO TID Hydrocortisone (Topical) (Hydrocortisone), 1 APPLN TOP TID Ipratropium-Albuterol (Duoneb), 1 AMP NEB BID Scheduled PRN Benzonatate (Tessalon Perles), 100 MG PO TID PRN for Cough Ondansetron Hcl (Zofran), 4 MG PO BID PRN for Nausea or Vomiting Tramadol (Ultram), 50 MG PO BID PRN for Pain Current Inpatient Medications Current Inpatient Medications Medications (Trade) Dose Ordered Sig/Jevon Route Start Time Stop Time Status Last Admin Dose Admin Acetaminophen (Tylenol Tab) 650 mg Q4H PRN PO 06/10/16 13:00 07/10/16 12:59 Ondansetron HCl (Zofran Inj) 4 mg Q6H PRN IV 06/10/16 13:00 07/10/16 12:59 Nitroglycerin (Nitrostat Tab) 0.4 mg UD PRN SL 06/10/16 13:00 07/10/16 12:59 Morphine Sulfate (MoRPHine SULFATE INJ) 2 mg Q30M PRN IV 06/10/16 13:00 06/24/16 12:59 Benzonatate (Tessalon Perles Cap) 100 mg TID PRN PO 06/10/16 13:00 07/10/16 12:59 06/11/16 08:58 100 MG Dexamethasone (Decadron Tab) 4 mg TID PO 06/10/16 14:00 07/10/16 13:59 06/11/16 08:57 4 MG Ondansetron HCl (Zofran Tab) 4 mg BID PRN PO 06/10/16 13:00 07/10/16 12:59 Tramadol HCl (Ultram Tab) 50 mg BID PRN PO 06/10/16 13:00 07/10/16 12:59 06/10/16 19:38 50 MG Hydrocortisone (Hydrocortisone 2.5% Crm) 1 appln TID EXT 06/10/16 14:00 07/10/16 13:59 Atorvastatin Calcium 40 mg 40 mg QAM PO 06/11/16 09:00 07/11/16 08:59 06/11/16 08:57 40 MG Heparin Sodium/ Dextrose (Heparin 25,000 Unit/500ml D5W) 500 ml @ 15 mls/hr Q24H PRN IV 06/10/16 13:35 07/10/16 13:34 Miscellaneous Information (Pharmacist Discharge Med Rec Consult) 1 ea UD PRN N/A 06/10/16 16:45 07/10/16 16:44 Albuterol/ Ipratropium (Duoneb) 3 ml QIDR INH 06/11/16 12:00 2/27/17 11:59 Albuterol Sulfate (Ventolin 0.083% 2.5MG/3ML Neb) 2.5 mg Q6R PRN INH 06/11/16 09:00 07/11/16 08:59 Review of Systems Constitutional: Positive I believe for some weight loss although difficult to quantify and he states he's had a an intermittent fever with chills Eyes: Negative for event change of vision ENT: Negative for epistaxis, nasal discharge, sore throat, or deafness Cardiovascular: Positive for chest pain on the right side as well as parasternally Respiratory: Negative for new shortness of breath,hemoptysis, or purulent cough Gastrointestinal: Negative for diarrhea, hematemesis, melena, nausea, vomiting , or dyspepsia Integumentary (skin): Negative for rash or jaundice discoloration Genitourinary: Negative for urinary frequency, hematuria, or dysuria Neurological: Negative for weakness, seizure activity, headache, or dizziness Lymphatic/Hematologic: Negative for petechiae, bleeding or new adenopathy Musculoskeletal: Negative for new joint or back pain Allergic/Immunologic: Negative for unusual rash or pruritis. Physical Exam Date Time Temp Pulse Resp B/P Pulse Ox O2 Delivery O2 Flow Rate FiO2 06/11/16 12:01 36.7 103 18 134/72 96 Nasal Cannula 06/11/16 12:00 Nasal Cannula 2.0 06/11/16 08:00 Nasal Cannula 2.0 06/11/16 07:52 36.4 96 16 125/68 95 06/11/16 04:00 95 Nasal Cannula 2.0 06/11/16 03:14 36.9 97 15 131/79 95 Nasal Cannula 2.0 06/11/16 00:00 91 Nasal Cannula 2.0 06/10/16 20:42 114 18 95 Nasal Cannula 2.0 06/10/16 20:00 Nasal Cannula 2.0 06/10/16 19:29 37.1 90 18 126/78 97 06/10/16 16:00 97 Nasal Cannula 2.0 06/10/16 15:00 97 Nasal Cannula 2.0 06/10/16 15:00 37.0 105 23 143/87 97 Nasal Cannula 2.0 06/10/16 14:53 92 137/83 97 Constitutional: vitals are stable. Thin pleasant black gentleman Eyes: Eyes are JESSY EOMI without conjuctival erythema or icterus. ENT: External examination was negative for masses. Neck: Negative for masses or palpable thyromegaly Respiratory: Lung sounds were generally decreased bilaterally Cardiovascular: Heart was RRR without significant murmur, gallops aoe rubs Gastrointestinal: No palpable hepatic or splenomegaly. The abdomen was soft with normal bowel sounds. Lymphatic system: there was no palpable peripheral lymphadenopathy Musculoskeletal System: The musculoskeletal system seemed concordant with age. Skin: The skin was negative for jaundice. Neurologic exam: The exam was negative for any focal findings. Deep tendon reflexes were equal and symmetrical. Psychiatric exam: Was essentially negative with normal mood and effect. Extremities: Negative for edema erythema Laboratory Results Last 24 Hours Test 06/10/16 17:05 06/10/16 19:34 06/10/16 22:06 06/11/16 03:06 Procalcitonin 0.17 ng/mL Activated Partial Thromboplast Time 35.2 SECONDS 48.9 SECONDS Partial Thromboplastin Ratio 1.4 1.9 Troponin I 0.146 ng/ml Test 06/11/16 06:05 06/11/16 14:00 White Blood Count 8.96 K/uL Red Blood Count 3.30 M/uL Hemoglobin 10.1 g/dL Hematocrit 30.4 % Mean Corpuscular Volume 92.1 fL Mean Corpuscular Hemoglobin 30.6 pg Mean Corpuscular Hemoglobin Concent 33.2 g/dl RDW Standard Deviation 46.2 fL RDW Coefficient of Variation 13.7 % Platelet Count 130 K/uL Mean Platelet Volume 9.2 fL Activated Partial Thromboplast Time 42.6 SECONDS Partial Thromboplastin Ratio 1.6 Sodium Level 137 mmol/L Potassium Level 4.2 mmol/L Chloride Level 104 mmol/L Carbon Dioxide Level 23 mmol/L Anion Gap 10.0 mmol/L Blood Urea Nitrogen 16 mg/dl Creatinine 0.92 mg/dl Est Creatinine Clear Calc Drug Dose 67.0 ml/min Estimated GFR () 108.1 Estimated GFR (Non- 93.3 BUN/Creatinine Ratio 17.5 Random Glucose 151 mg/dl Calcium Level 8.8 mg/dl Troponin I 0.100 ng/ml Triglycerides Level 177 mg/dl Cholesterol Level 197 mg/dl HDL Cholesterol 69 mg/dl LDL Cholesterol, Calculated 93 mg/dl VLDL Cholesterol, Calculated 35 mg/dl Cholesterol/HDL Ratio 2.9 Assessment & Plan Probable progressive non-small cell lung carcinoma X-rays reviewed. He does appear to have a pneumonic process. Cultures should be done and antibiotics should be started. Anticoagulants are ongoing for the pulmonary embolus. It does appear that his disease has progressed in the right lung. We will try to arrange for an updated PET CT as an outpatient in our clinic in follow him up in our clinic and perhaps entertain the use of a checkpoint inhibitor for the progression of his non-small cell carcinoma. MRI of the head will also need to be repeated in about a month. There are some changes noted with yesterday's scan that suggested potential new metastasis although is far from clear and are described as punctate currently. I should note that he is aware that he has a terminal disease. He would like an attempt at resuscitation should it become necessary
[2016-06-11 15:54] LABS: PARTIAL THROMBOPLASTIN RATIO 1.3
--- NOTE | 2016-06-11 16:01 | ECHOCARDIOGRAM REPORT ---
*NOTICE TO RECEIVING LIBERTARIAN AGENCY This information is strictly Confidential and protected under [place] law. [place] law prohibits you from making any further disclosure of this information unless further disclosure is expressly permitted by the written consent of the person to whom it pertains or is authorized by law. A general authorization for the release of medical or other information is not sufficient for this purpose. Hospital accepts no responsibility if the information is made available to any other person, INCLUDING THE PATIENT. Interpretation Summary * Name: ANTONIO HERNANDEZ [id number] Study Date: 06/11/2016 02:06 PM BP: 143/87 mmHg * Patient Location: [facility] HR: 95 * : 1960 (M/d/yyyy) Gender: Male Height: 64 in * Age: 56 yrs Ethnicity: AA Weight: 115 lb * Ordering Physician: Karina Stratton * Referring Physician: Rima DOOLEY * Performed By: Hitesh Michelle RDCS * * Reason For Study: Stroke * BSA: 1.5 m2 * -- Conclusions -- * 1. Technically limited study. * 2. Normal LV size. Mild concentric LVH. * 3. Normal LV systolic function. LVEF 55-60%. No regional wall motion abnormalities. * 3. Normal RV size and function. * 4. Mild-moderate aortic insufficiency. * 5. Mild mitral regurgitation. * 6. Normal estimated RA pressure. * 7. No prior studies for comparison. Procedure Details * A complete two-dimensional transthoracic echocardiogram was performed (2D, M-mode, Doppler and color flow Doppler). * The study was technically difficult. * The study was technically limited. * Limited views were obtained. * There were technical limitations due to patient'sPoor acoustic windows secondary to severe lung disease. Left Ventricle * The left ventricle is grossly normal size. * There is mild concentric left ventricular hypertrophy. * Ejection Fraction = 55-60%. * No regional wall motion abnormalities noted. Right Ventricle * The right ventricle is grossly normal size. * The right ventricular systolic function is normal as assessed by tricuspid annular plane systolic excursion (TAPSE) (normal >1.5 cm). Atria * The left atrial size is normal. * Right atrial size is normal. * No ASD detected; PFO is not assessed. Mitral Valve * The mitral valve is grossly normal. * The mitral valve leaflets appear thickened, but open well. * There is no mitral valve stenosis. * There is mild mitral regurgitation. Tricuspid Valve * The tricuspid valve is not well visualized. * There is no tricuspid stenosis. * Significant tricuspid regurgitation is absent. Aortic Valve * The aortic valve opens well. * No hemodynamically significant valvular aortic stenosis. * Mild to moderate aortic regurgitation. Pulmonic Valve * The pulmonic valve is not well visualized. Great Vessels * The aortic root and proximal ascending aorta are normal sized. Pericardium/Pleural * There is no pericardial effusion. Great Vessels * Normal inferior vena cava size and collapsability with sniff indicates a normal right atrial pressure of 3 mmHg MMode 2D Measurements and Calculations IVSd 1.2 cm IVSs 1.6 cm LVIDd 4.5 cm LVIDs 3.2 cm LVPWd 1.2 cm LVPWs 1.5 cm IVS/LVPW 1.0 FS 29.7 % EDV(Teich) 91.6 ml ESV(Teich) 39.4 ml EF(Teich) 56.9 % EDV(cubed) 90.1 ml ESV(cubed) 31.3 ml EF(cubed) 65.3 % % IVS thick 37.7 % % LVPW thick 30.3 % LV mass(C)d 188.8 grams LV mass(C)dI 122.1 grams/m\S\2 LV mass(C)s 180.1 grams LV mass(C)sI 116.5 grams/m\S\2 SV(Teich) 52.2 ml SI(Teich) 33.7 ml/m\S\2 SV(cubed) 58.8 ml SI(cubed) 38.0 ml/m\S\2 EPSS 0.77 cm Ao root diam 3.3 cm Ao root area 8.7 cm\S\2 ACS 1.7 cm LA dimension 3.4 cm LA/Ao 1.0 LVOT diam 1.8 cm LVOT area 2.6 cm\S\2 LVAd ap4 27.8 cm\S\2 LVLd ap4 7.5 cm EDV(MOD-sp4) 86.0 ml LVAs ap4 15.5 cm\S\2 LVLs ap4 6.2 cm ESV(MOD-sp4) 32.0 ml EF(MOD-sp4) 62.8 % LVAd ap2 23.4 cm\S\2 LVLd ap2 6.9 cm EDV(MOD-sp2) 67.0 ml LVAs ap2 12.9 cm\S\2 LVLs ap2 5.7 cm ESV(MOD-sp2) 25.0 ml EF(MOD-sp2) 62.7 % SV(MOD-sp4) 54.0 ml SI(MOD-sp4) 34.9 ml/m\S\2 SV(MOD-sp2) 42.0 ml SI(MOD-sp2) 27.2 ml/m\S\2 Doppler Measurements and Calculations MV E max cari 85.4 cm/sec MV A max cari 72.1 cm/sec MV E/A 1.2 MV dec time 0.16 sec Ao V2 max 152.2 cm/sec Ao max PG 9.3 mmHg Ao max PG (full) 3.9 mmHg LAURENCE(V,A) 2.0 cm\S\2 LAURENCE(V,D) 2.0 cm\S\2 AI max cari 446.5 cm/sec AI max PG 79.7 mmHg AI dec slope 195.3 cm/sec\S\2 AI P1/2t 669.8 msec LV V1 max PG 5.3 mmHg LV V1 max 115.4 cm/sec
[2016-06-11] MEDS ORDERED: HEPARIN IV BOLUS 4,000 UNIT in SYRINGE 0 ML IV ONE (17:15)
[2016-06-11] MEDS: HEPARIN 25,000 UNIT/500ML D5W 500 ML IV PRN ×2 (17:17→21:16)
[2016-06-11 22:43] LABS: PARTIAL THROMBOPLASTIN RATIO 1.8
[2016-06-12] VITALS (8 sets, daily range): BP systolic 123–152; BP diastolic 71–85; PULSE 90–112; TEMP 36.6–36.8; O2SAT 90–97
[2016-06-12 06:39] LABS: HEMATOCRIT 28.5 % (42-52); MEAN CELL VOLUME 90.5 fL (80-100); MEAN CORPUSCULAR HEMOGLOBIN 30.8 pg (25-34); MEAN PLATELET VOLUME 9.1 fL (7.4-10.4); PLATELET COUNT 156 K/uL (130-400); RED BLOOD COUNT 3.15 M/uL (4.7-6.1)
[2016-06-12 06:48] LABS: PARTIAL THROMBOPLASTIN RATIO 1.3
[2016-06-12] MEDS: HEPARIN 25,000 UNIT/500ML D5W 500 ML IV PRN ×3 (07:01→14:58)
[2016-06-12 07:11] LABS: BUN/CREATININE RATIO 17.4 (10-20); CALCIUM 8.9 mg/dl (8.5-10.1); CREATININE 0.88 mg/dl (0.60-1.40)
[2016-06-12] MEDS: ALBUT/IPRATROP 3MG/0.5MG NEB 3 ML VIAL INH SCH ×4 (07:20→20:30)
[2016-06-12] MEDS: DEXAMETHASONE 4 MG TAB PO SCH ×3 (07:27→21:10)
[2016-06-12] MEDS: HYDROCORTISONE 2.5% CR 30 GM TUBE EXT SCH ×3 (07:28→21:00)
[2016-06-12] MEDS ORDERED: HEPARIN IV BOLUS 4,000 UNIT in SYRINGE 0 ML IV ONE ×2 (07:30→15:00)
[2016-06-12] MEDS: BENZONATATE 100MG CAP PO PRN (07:31)
[2016-06-12 13:59] LABS: PARTIAL THROMBOPLASTIN RATIO 1.4
[2016-06-12] MEDS: ATORVASTATIN 40 MG TAB PO SCH (14:23)
--- NOTE | 2016-06-12 15:45 | Progress Note ---
Subjective Date of Service: Jun 12, 2016. Subjective Pt evaluation today including: conversation w/ patient, physical exam, chart review, lab review, review of inpatient medication list breathing feels better but not great - still a lot of JAIME. was in bathroom getting washed up then PT came - during that whole time he had O2 off - then walked part way around bed and then noted that both feet diffusely got tingly. just feet not fingers, not around mouth. slowly resolved, then felt itchy. no back pain. never happened before. just got him worried. no further headaches. chest pain that faded to more R abdominal pain yesterday persists but slowly improving Problem List Medical Problems: (1) Dizziness Status: Acute (2) Elevated troponin Status: Acute (3) Metastatic disease Status: Acute (4) Metastatic lung cancer (metastasis from lung to other site) Status: Acute (5) Stroke Status: Acute (6) Syncope Status: Acute (7) Vasogenic brain edema Status: Acute Review of Systems Respiratory: + dyspnea on exertion, + shortness of breath Cardiac: + see HPI Neurologic: + numbness/tingling, + see HPI ros otherwise negative except for as above Objective Vital Signs Date Time Temp Pulse Resp B/P Pulse Ox O2 Delivery O2 Flow Rate FiO2 06/12/16 15:36 112 18 94 Nasal Cannula 2.0 06/12/16 15:26 36.6 112 18 123/75 94 Nasal Cannula 2.0 06/12/16 11:29 92 18 96 Nasal Cannula 2.0 06/12/16 11:27 108 94 06/12/16 08:10 Nasal Cannula 2.0 06/12/16 07:21 36.8 109 20 152/85 92 Nasal Cannula 2.0 06/12/16 07:21 95 18 97 Nasal Cannula 2.0 06/12/16 00:14 90 Nasal Cannula 2.0 06/11/16 23:52 92 Nasal Cannula 2.0 06/11/16 23:49 36.6 100 18 145/75 92 Room Air 06/11/16 19:52 98 18 90 Nasal Cannula 1.0 06/11/16 19:40 96 Nasal Cannula 2.0 06/11/16 16:00 96 Nasal Cannula 2.0 Physical Exam General Appearance: no apparent distress Eyes: EOMI ENT: hearing grossly normal Neck: trachea midline Respiratory/Chest: no respiratory distress, no accessory muscle use Extremities: normal range of motion Neurologic/Psychiatric: soap slabber II-XII nml as tested, alert, normal mood/affect, + pertinent finding (b/l diffuse feet bottoms and lateral / top with diminished/ tingly sensation - but totally symmetric. no motor weakness, no other sensory deficits. vascularly appears intact) Skin: normal color, warm/dry Laboratory Results Last 24 Hours Test 06/11/16 22:15 06/12/16 06:23 06/12/16 09:40 06/12/16 13:43 Activated Partial Thromboplast Time 46.9 SECONDS 33.4 SECONDS 36.3 SECONDS Partial Thromboplastin Ratio 1.8 1.3 1.4 White Blood Count 17.10 K/uL Red Blood Count 3.15 M/uL Hemoglobin 9.7 g/dL Hematocrit 28.5 % Mean Corpuscular Volume 90.5 fL Mean Corpuscular Hemoglobin 30.8 pg Mean Corpuscular Hemoglobin Concent 34.0 g/dl RDW Standard Deviation 44.5 fL RDW Coefficient of Variation 13.5 % Platelet Count 156 K/uL Mean Platelet Volume 9.1 fL Nucleated RBC Absolute Count (auto) 0.03 K/uL Nucleated Red Blood Cells % 0.2 % Sodium Level 139 mmol/L Potassium Level 4.0 mmol/L Chloride Level 104 mmol/L Carbon Dioxide Level 25 mmol/L Anion Gap 10.0 mmol/L Blood Urea Nitrogen 15 mg/dl Creatinine 0.88 mg/dl Est Creatinine Clear Calc Drug Dose 71.2 ml/min Estimated GFR () 112.1 Estimated GFR (Non- 96.7 BUN/Creatinine Ratio 17.4 Random Glucose 145 mg/dl Calcium Level 8.9 mg/dl C-Reactive Protein 2.55 mg/dl Procalcitonin 0.12 ng/mL Assessment and Plan metastatic lung ca - worsening - heme/onc eval pending, he expresses desire for treatment if possible CVA - appearing more than likely embolic given distribution. carotids clear. echo noted (although w PE will really need anticoagulated anyway, so if occult afib, if paradoxical embolus, further w/u would not dramatically alter treatment ). surprisingly no focal neuro deficits, clinically stable PE - d/w neurology regarding bleed risk w stroke - and not high enough to contraindicate anticoagulation. low dose heparin, follow sx, has improved. no evidence of bleeding. discussed transition ideally to lovenox since clot w malignancy - he notes he hates needles; discussed NOAC as possible alternative, but not as well studied in setting of malignancy. he'll consider. recent fever - no other acute sx of infection - hasn't recurred, procalcitonin overall reassuring. continue to hold abx wheezing - strongly suspect baseline COPD. increase nebs to duonebs QID, added prn albuterol. 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 given context of exertion without O2 = SOB/hyperventilating likely - suspect was paresthesiae from blowing off CO2. d/w pt to wear O2 w exertion, continue to follow sx, w/u further if recurrent.
[2016-06-12] MEDS: TRAMADOL HCL 50 MG TAB PO PRN (21:14)
[2016-06-13] VITALS (8 sets, daily range): BP systolic 112–138; BP diastolic 66–82; PULSE 74–110; TEMP 36.4–36.6; O2SAT 95–97
[2016-06-13] MEDS: HEPARIN 25,000 UNIT/500ML D5W 500 ML IV PRN ×3 (00:16→16:30)
[2016-06-13 06:10] LABS: HEMATOCRIT 27.6 % (42-52); MEAN CELL VOLUME 92.3 fL (80-100); MEAN CORPUSCULAR HEMOGLOBIN 30.4 pg (25-34); PLATELET COUNT 185 K/uL (130-400); RED BLOOD COUNT 2.99 M/uL (4.7-6.1); WHITE BLOOD COUNT 19.91 K/uL (4.8-10.8)
[2016-06-13 06:18] LABS: PARTIAL THROMBOPLASTIN RATIO 1.5
[2016-06-13 06:26] LABS: BUN/CREATININE RATIO 21.5 (10-20); CALCIUM 8.6 mg/dl (8.5-10.1); CREATININE 0.87 mg/dl (0.60-1.40); POTASSIUM 4.5 mmol/L (3.5-5.1)
[2016-06-13] MEDS: ALBUT/IPRATROP 3MG/0.5MG NEB 3 ML VIAL INH SCH ×4 (06:59→20:11)
[2016-06-13] MEDS ORDERED: HEPARIN IV BOLUS 4,000 UNIT in SYRINGE 0 ML IV ONE (08:30)
--- NOTE | 2016-06-13 08:33 | HEME/ONC PROGRESS NOTE ---
DATE: 06/13/2016 DIAGNOSES: 1. Pulmonary embolus. 2. Probable pneumonia. 3. Progressive nonsmall cell lung cancer. HISTORY OF PRESENT ILLNESS: Mr. Yu was admitted to [facility] on 06/11/2016. He apparently had developed fever and chest pain particularly on the right-sided with radiation in the middle of his chest. CT scan revealed a pneumonic process and probable disease progression. He has been placed on antibiotics and anti-inflammatories. His appetite remained stable. His only complaint today is that of right-sided chest wall pain and some shortness of breath. According to Dr. Baker's initial consult, we will consider further therapy. I would suspect PD-1 inhibitor once he is discharged from hospital. PHYSICAL EXAMINATION: GENERAL: He is in no acute distress. VITAL SIGNS: Temperature 36.5, pulse 74, respirations 18, blood pressure 120/66. SKIN: Without rash or lesion. HEENT: No buccal lesions or ulcerations. NECK: Supple. HEART: Regular rate and rhythm. No clicks, rubs, murmurs or gallops. LUNGS: Diminished breath sounds, expiratory wheezes heard throughout both ge. ABDOMEN: Soft, nontender, nondistended. EXTREMITIES: No clubbing, cyanosis or edema. NEUROLOGIC: Grossly intact. LABORATORY DATA: WBC count 19,900, hemoglobin 9.1, platelet count 185,000. Sodium 141, potassium 4.5, chloride 104, CO2 25, creatinine 0.87, BUN 19. IMPRESSION: 1. Pulmonary embolism. 2. Pneumonia. 3. Progressive nonsmall cell lung cancer. PLAN: Agree with current medical management. His pain seems to be reasonably managed as well. From an oncologic standpoint, nothing further to add until the patient is medically stable. We will make arrangements for outpatient followup to see Dr. Baker as I suspect he will initiate PD-1 inhibition for Mr. Yu's disease. Thank you for assisting us in the care of this very pleasant gentleman. HEENA
[2016-06-13] MEDS: DEXAMETHASONE 4 MG TAB PO SCH ×3 (08:44→20:26)
[2016-06-13] MEDS: HYDROCORTISONE 2.5% CR 30 GM TUBE EXT SCH ×3 (08:44→20:55)
[2016-06-13] MEDS: ATORVASTATIN 40 MG TAB PO SCH (08:45)
[2016-06-13 15:03] LABS: PARTIAL THROMBOPLASTIN RATIO 1.6
[2016-06-13] MEDS ORDERED: HEPARIN IV BOLUS 2,000 UNIT in SYRINGE 0 ML IV ONE (16:15)
--- NOTE | 2016-06-13 16:38 | Family Medicine Progress Note ---
Progress Note Date of Service Jun 13, 2016. Subjective Pt evaluation today including: conversation w/ patient Pain: Right lateral chest Voiding: no voiding problems Reports being short of breath with exertion Right sided chest wall tenderness Constitutional: No chills, No fever Eyes: No worsening of vision ENT: No hearing loss Respiratory: + dyspnea on exertion, + shortness of breath, + wheezing, No cough, No sputum Cardiovascular: No chest pain Abdomen: No diarrhea, No nausea, No pain, No vomiting Male : No dysuria, No urinary frequency Objective Physical Exam General Appearance: no apparent distress ENT: hearing grossly normal Neck: supple, no adenopathy Respiratory/Chest: no respiratory distress, no accessory muscle use, + decreased breath sounds, + wheezing, + pertinent finding (chest tenderness) Cardiovascular: regular rate, rhythm, no edema Abdomen: normal bowel sounds, non tender, soft Extremities: non-tender, normal inspection Neurologic/Psychiatric: automation engineer II-XII nml as tested, no motor/sensory deficits, alert, normal mood/affect, oriented x 3 Assessment and Plan This is a 56 y/o M who presents with worsening metastatic lung Ca, new CVA and Pulmonary Embolism. Metastatic Lung Ca: Heme/Onc will follow him outpatient and determine treatment since she expresses Evidence of Brain Mets. CVA -stable ? embolic, normal echo, normal carotids no residual neuro deficits PE: Currently on low dose heparin Patient declines Lovenox Start Xarelto tomorrow 15 mg BID for 21 days and then 20 mg Although there is some concern for > risk of bleeding with brain mets. Will talk to Dr. Chambers for suggestions. ?Pradaxa with reversal agent. Fever: no recurrence, clinically stable Heme/onc recc. noted- will hold on starting abx/ doing blood cultures. Mild COPD exacerbation: Continue Ventolin, Duonebs as wheezing still persists Code: Full DVT Proph Heparin Dispo: Anticipate [facility]/C back to [facility] if stable from pulmonary standpoint History Resident Physician Supervision Note: I was present with Dr. Telles during the history and exam. I discussed the case with the resident and agree with the findings and plan as documented in the note. An exceptions or clarifications are listed here Pt seen and examined at bedside. Early this AM had exacerbation of right sided chest pain which was slightly worse but still better than initial presentation, which has since improved once more. Accompanied by mild splinting/SOB, fatigue. Reports no n/v, lightheadedness, vision/hearing changes, n/t/w General Appearance: no apparent distress, thin Neck: non-tender, full range of motion, supple Respiratory: lungs clear, normal breath sounds, no respiratory distress, decreased breath sounds (diffusely), wheezing (scattered) Cardiovascular: normal peripheral pulses, regular rate, rhythm, no edema, no murmur Gastrointestinal: normal bowel sounds, non tender, soft, no organomegaly Assessment/Plan 56 y/o male h/o stage 4 lung ca w/ new MCA infarct and PE Metastatic lung cancer - heme/onc aware and input appreciated CVA - likely embolic. Carotid US and echo done. Without apparent neurologic deficit on examination PE - presently on heparin, refusing lovenox 2/2 doesn't want to inject. Will d/ w patient and heme/onc re: rec'd AC Recent fever - afebrile at present Wheezing - duoneb PRN
[2016-06-13] MEDS: BENZONATATE 100MG CAP PO PRN (20:27)
[2016-06-14] VITALS (7 sets, daily range): BP systolic 118–145; BP diastolic 68–82; PULSE 93–105; TEMP 36.3–36.8; O2SAT 92–98
[2016-06-14 00:09] LABS: PARTIAL THROMBOPLASTIN RATIO 1.7
[2016-06-14] MEDS ORDERED: HEPARIN IV BOLUS 2,000 UNIT in SYRINGE 0 ML IV ONE (00:45)
[2016-06-14] MEDS: HEPARIN 25,000 UNIT/500ML D5W 500 ML IV PRN (00:57)
[2016-06-14 07:16] LABS: HEMATOCRIT 27.7 % (42-52); MEAN CELL VOLUME 93.6 fL (80-100); MEAN CORPUSCULAR HEMOGLOBIN 31.1 pg (25-34); MEAN CORPUSCULAR HGB CONC 33.2 g/dl (32-36); MEAN PLATELET VOLUME 9.3 fL (7.4-10.4); PLATELET COUNT 178 K/uL (130-400); RED BLOOD COUNT 2.96 M/uL (4.7-6.1); WHITE BLOOD COUNT 19.57 K/uL (4.8-10.8)
[2016-06-14 07:29] LABS: PARTIAL THROMBOPLASTIN RATIO 2.1
[2016-06-14] MEDS: ALBUT/IPRATROP 3MG/0.5MG NEB 3 ML VIAL INH SCH ×3 (07:51→15:05)
[2016-06-14] MEDS ORDERED: RIVAROXABAN TAB 15 MG TAB PO SCH (09:00)
[2016-06-14] MEDS: HYDROCORTISONE 2.5% CR 30 GM TUBE EXT SCH ×2 (09:00→13:48)
[2016-06-14] MEDS: DEXAMETHASONE 4 MG TAB PO SCH ×2 (09:10→14:35)
[2016-06-14] MEDS: ATORVASTATIN 40 MG TAB PO SCH (09:10)
[2016-06-14] MEDS ORDERED: HEPARIN IV LOW DOSE NO BOLUS SCH (09:41)
[2016-06-14] MEDS ORDERED: HEPARIN 25,000 UNIT/500ML D5W 500 ML IV PRN (10:45)
[2016-06-14] MEDS ORDERED: ENOXAPARIN 60 MG/0.6 ML SYR SQ SCH ×2 (12:00→14:00)
[2016-06-14] MEDS ORDERED: OXGN (15:07)
[2016-06-14] MEDS ORDERED: IPRASOL4 INH ×2 (15:07→15:11)
[2016-06-14] MEDS ORDERED: CMD5 PO (15:07)
[2016-06-14] MEDS ORDERED: LVNIS60 SQ (15:07)
[2016-06-14] MEDS ORDERED: LPT40 PO (15:13)
--- NOTE | 2016-06-14 15:21 | Discharge Instructions ---
Discharge Instructions Admission Reason for Admission: Chest Pain; Pulmonary Embolism Discharge Discharge Diagnosis / Problem: Metastatic Lung Ca, CVA, PE Discharge Goals Goal(s): Decrease discomfort, Learn about illness, Diagnostic testing, Therapeutic intervention, Prevent Disease Progression Activity Recommendations Activity Limitations: resume your previous activity Lifting Limitations: gradually increase as tolerated Exercise/Sports Limitations: gradually increase as tolerated Shower/Bathe: no limitations . Instructions / Follow-Up Instructions / Follow-Up This patient was treated for Pulmonary embolus in the setting of Lung ca and also did present with a stroke. The patient has agreed to roughly four days of Lovenox bridging. BID therapeutic dosing. He received his first dose today around 1300 and will need a second dose at 1 am ton/Jun 15. He has also been started on 5 mg of Coumadin. Please check INR and titrate Coumadin until therapeutic (2-3). The patient will have Oncology follow up in 1-2 weeks for further evaluation and treatment options. He may need duonebs / supplemental O2. Please do not hesitate to contact us with questions. Current Hospital Diet Patient's current hospital diet: Regular Diet Discharge Diet Recommended Diet: Regular Diet Fluid Restriction: None Pending Studies Studies pending at discharge: no Laboratory Results Hemoglobin A1c Test 06/10/16 11:21 Range/Units Estimated Average Glucose 103 mg/dl Hemoglobin A1c 5.2 4.5-5.6 % Lipid Panel Test 06/11/16 06:05 Range/Units Triglycerides Level 177 H 0-150 mg/dl Cholesterol Level 197 0-200 mg/dl HDL Cholesterol 69 mg/dl Cholesterol/HDL Ratio 2.9 LDL Cholesterol, Calculated 93 mg/dl Medical Emergencies . Who to Call and When: Medical Emergencies: If at any time you feel your situation is an emergency, please call 911 immediately. . Non-Emergent Contact Non-Emergency issues call your: Primary Care Provider, Oncologist Call Non-Emergent contact if: temperature is above 101, your pain is not controlled, your pain is worsening . . "Provider Documentation" section prepared by Ashanti Hanson. VTE Core Measure Inpt VTE Proph given/why not?: Other Anticoagulation (therapeutic lovenox, coumadin)
[2016-06-14] MEDS ORDERED: WARFARIN SOD 5 MG TAB PO SCH (16:00)
--- NOTE | 2016-06-14 17:07 | Discharge Summary ---
Discharge Summary Admission Date: Jun 10, 2016 at 12:57 Discharge Date: Jun 14, 2016 Principal Diagnosis: Pulmonary embolism Problems/Secondary Diagnoses: MCA stroke Metastatic Lung Ca Immunizations: Have You Had Influenza Vaccine: Yes History of Tetanus Vaccine?: Unknown History of Pneumococcal: No History of Hepatitis B Vaccine: No Procedures: Brain MRI: IMPRESSION: 1. Acute distal left MCA territory infarct. 2. Slight increase in size in the dominant left frontal lobe mass consistent Chest CT: IMPRESSION: 1. Interval progression of tumor/metastatic disease within the right hemithorax as described above. 2. Interval development of a nonocclusive left lower lobe pulmonary embolus. 3. Emphysema. 4. Small right pleural fusion has decreased in size. Carotid Artery US Normal, no stenosis Echocardiogram * 1. Technically limited study. * 2. Normal LV size. Mild concentric LVH. * 3. Normal LV systolic function. LVEF 55-60%. No regional wall motion abnormalities. * 3. Normal RV size and function. * 4. Mild-moderate aortic insufficiency. * 5. Mild mitral regurgitation. * 6. Normal estimated RA pressure. * 7. No prior studies for comparison. Consultations: Hematology/oncology (Ashanti Telles MD) Medication Reconciliation New Medications: Ipratropium-Albuterol (Duoneb) 3 Ml Nebu 1 TREATMENT INH Q4H PRN for Shortness of Breath for 30 Days, INHA Oxygen (Oxygen) Gas 2 LITERS NA PRN for 30 Days Atorvastatin (Atorvastatin Calcium) 40 Mg Tab 40 MG PO QAM for 30 Days, #30 TAB Enoxaparin (Enoxaparin Sodium) 60 Mg/0.6 Ml Inj 50 MG SQ Q12 for 4 Days, #8 Warfarin Sod (Coumadin) 5 Mg Tab 5 MG PO DAILY@16 for 30 Days, #30 TAB Continued Medications: Acetaminophen (Tylenol) 325 Mg Tab 650 MG PO Q6, TAB Benzonatate (Tessalon Perles) 100 Mg Cap 100 MG PO TID PRN for Cough, CAP Dexamethasone (Dexamethasone) 4 Mg Tab 4 MG PO TID for 30 Days, #90 TAB 1 Refill Hydrocortisone (Topical) (Hydrocortisone) 2.5 % Lot 1 APPLN TOP TID, ML Ipratropium-Albuterol (Duoneb) 3 Ml Nebu 1 AMP NEB BID, INHA Ondansetron Hcl (Zofran) 4 Mg Tab 4 MG PO BID PRN for Nausea or Vomiting, TAB Tramadol (Ultram) 50 Mg Tab 50 MG PO BID PRN for Pain, TAB Discharge Exam This is a 56 yo m with known non-small cell lung carcinoma with progression of disease who presented with shortness of breath, fever, found to have a PE as well left MCA stroke. Neurologically, the patient had no residual deficits. The source is thought to be embolic though carotid doppler and tte were normal. There were no clear signs of a pneumonia, normal procalcitonin. For his PE, he was started on a heparin drip and monitored closely for neurological symptoms. Regarding terminal gauger anticoagulation, the patient was completely against lovenox due to the needles. However, we had multiple discussions with oncology/ coumadin clinic and the patient about studies on cancer patients being done primarily with lovenox/coumadin; not the NOAC. The patient eventually agreed to a few days of bridging with Lovenox and continuing with Coumadin. Risks and benefits of anticoagulation in the setting of brain mets and hemorrhage from the new infarct were discussed. With respect to his cancer, He will be followed outpatient by oncology for further treatment though his disease is progressive. Review of Systems: Constitutional: No chills, No fever Respiratory: + dyspnea on exertion, + shortness of breath, No cough, No dyspnea at rest, No sputum Cardiovascular: No chest pain Genitourinary - Male: No dysuria, No hematuria, No urinary frequency Physical Exam: General Appearance: no apparent distress Eyes: PERRL, EOMI ENT: hearing grossly normal Neck: supple, no adenopathy Respiratory/Chest: no respiratory distress, no accessory muscle use, + decreased breath sounds (RLL) Cardiovascular: regular rate, rhythm, no edema Abdomen / GI: normal bowel sounds, non tender, soft Extremities: no calf tenderness, no pedal edema Neurologic/Psychiatric: lead assistant manager II-XII nml as tested, no motor/sensory deficits , alert, normal mood/affect, oriented x 3 (Ashanti Telles MD) Hospital Course Total Time Spent: Greater than 30 minutes This includes examination of the patient, discharge planning, medication reconciliation, and communication with other providers. (Ashanti Telles MD) Total Time Spent: Greater than 30 minutes (Kelby Earl MD) Discharge Instructions Please refer to the electronic Patient Visit Report (Discharge Instructions) for additional information. (Ashanti Telles MD) History Resident Physician Supervision Note: I was present with Dr. Telles during the history and exam. I discussed the case with the resident and agree with the findings and plan as documented in the note. Any exceptions or clarifications are listed here. Pt reports improved right sided superficial chest pain, but is concerned regarding care upon returning to [facility] with present discharge plan. Reviewed in detail w/ Dr. Lin and Dr. Avalos re: options, will do transition w/ lovenox to coumadin and close monitoring while incarcerated. Reports no RICKS, lightheadedness, vision/ eharing changes, numbness, tingling, SOB. (Kelby Earl MD) General Appearance: no apparent distress Respiratory: lungs clear, no respiratory distress, decreased breath sounds (b/ l bases), other (improved but persistent superficial R chest pain posteriorly) Cardiovascular: normal peripheral pulses, regular rate, rhythm, no edema, no murmur Gastrointestinal: normal bowel sounds, non tender, soft, no organomegaly (Kelby Earl MD) Assessment/Plan 56 y/o male h/o stage 4 lung ca w/ new MCA infarct and PE Metastatic lung cancer - outpatient follow up with heme/onc CVA - likely embolic. Carotid US and echo done. Without apparent neurologic deficit on examination PE - Transition to coumadin from lovenox per heme/onc recommendations Wheezing - monitor, t/c albuterol PRN inhaler if recurs as outpatient. (Kelby Earl MD)
[2016-08-15] MEDS ORDERED: SYMIN INH (11:27)
[2016-08-15] MEDS ORDERED: DRGTP12 TD (11:27)
[2016-08-15] MEDS ORDERED: INSDGIPEN SC (11:27)
[2016-08-15] MEDS ORDERED: RXNS5 PO (11:27)
== END 2016-06-14 18:42 | disposition home or self-care (01) | DRG 175 ==
LOC: ENRESERVTM → ENRESERVDT → EDBD 10:34 → C.EDB 10:37 → C.2T 12:57 → C.MED 06-11 10:51 → EDBEDREQ 06-11 10:57
PROVIDERS: ADMIT Family Medicine; ATTEND Family Medicine
DX: I26.99 Other pulmonary embolism without acute cor pulmonale (principal); J18.9 Pneumonia, unspecified organism; I63.442 Cerebral infarction due to embolism of left cerebellar artery; C78.00 Secondary malignant neoplasm of unspecified lung; C79.31 Secondary malignant neoplasm of brain; J90 Pleural effusion, not elsewhere classified; J44.1 Chronic obstructive pulmonary disease with (acute) exacerbation; J43.9 Emphysema, unspecified; R91.1 Solitary pulmonary nodule; I08.0 Rheumatic disorders of both mitral and aortic valves; Z87.891 Personal history of nicotine dependence; Z83.3 Family history of diabetes mellitus

== ENCOUNTER → 2016-07-27 | Outpatient (CLI) | payer OTHER ==
[~2016-07-27] MED LIST changes: +ATOR-24 PO; +CHECK FENTANYL; +CMD5 PO; +DRGTP12 TD; +DXM/4 PO; +INSDGIPEN SC; +INSHRIE SC; +INSU1INJ SC; +IPRASOL4 INH; +LPT40 PO; +LVNIS60 SQ; +NUTR-7 PO; +OMEP40CA41 PO; +OXGN; -PRVHFAIN INH; +RXNS20 PO; +RXNS5 PO; +SYMIN INH; +TRMO115 TOP; +VNTHFA/IN INH; +WARF3TAB6 PO
--- NOTE | 2016-07-27 10:18 | DIAGNOSTIC IMAGING REPORT ---
PET/CT HISTORY: LUNG CANCER TECHNIQUE: PET/CT was performed from the base of the skull through the pelvis following the intravenous administration of 15 mCi of F18-FDG. Non-contrast CT imaging was performed over the same range without breath-hold for attenuation correction of PET images and anatomic correlation, but not for primary interpretation as it is not of standard diagnostic quality. CT DOSE: COMPARISON: Chest CT 06/09/2016. Brain MRI 06/09/2016. PET CT 11/02/2015. FINDINGS: HEAD AND NECK: The brain parenchyma with nonocclusive this study. Mild FDG uptake associated with the neck musculature is likely physiologic. There are no FDG avid or enlarged cervical lymph nodes. CHEST: There is again noted a 3.3 cm necrotic right apical medial mass. The peripheral FDG uptake associated with this lesion has progressed. This demonstrates an SUV max of 4.4, previously demonstrating SUV max of 2.2. Mildly enlarged right peritracheal lymph nodes remain stable and do not demonstrate abnormal FDG uptake. Progressive consolidation occupying the majority of the right lower lobe and within the right middle lobe. The right middle lobe consolidation demonstrates mild FDG uptake with an SUV max of 3.6. The dense right lower lobe consolidation demonstrates areas of intense FDG uptake with an SUV max of 6.6. Posterior basal pleural-based FDG avid nodules have increased in size from the recent chest CT and measure up to 11 mm, previously measuring 7 mm. These demonstrate an SUV max of 3.6. Partially loculated small right pleural effusion remains unchanged. Multifocal areas of mild FDG uptake which appear to be related to the diaphragm may represent physiologic uptake versus developing metastatic pleural disease. ABDOMEN/PELVIS: Below the diaphragm, tracer is distributed physiologically in the gastrointestinal and genitourinary tracts. Focal areas of intense FDG uptake seen within the small bowel bowel within the deep pelvis may be related to physiologic uptake. There is no corresponding abnormality by CT. MUSCULOSKELETAL: There is no FDG-avid or destructive bone lesion. IMPRESSION: 1. Progressive pleural and parenchymal FDG uptake within the right hemithorax as described above. This consistent with progression of the patient's metastatic disease. The mild FDG uptake associated with the right middle lobe consolidation could represent post radiation change. However, the intense areas of FDG uptake within the right lower lobe consolidation likely represent a combination of post radiation change and worsening metastatic disease. 2. Mild multifocal FDG uptake associated with the diaphragm which may represent physiologic uptake versus developing metastatic disease. This bears watching on future examinations. 3. Areas of intense FDG uptake within the small bowel at the deep pelvis are likely related to physiologic uptake. No corresponding abnormality by CT. Electronically signed by: Robles Ellison M.D. 07/27/2016 10:16 AM Dictated Date/Time: 07/27/2016 9:56 AM
== END | disposition home or self-care (01) ==
LOC: C.PET 06:24
PROVIDERS: ATTEND Internal Medicine
DX: C34.90 Malignant neoplasm of unspecified part of unspecified bronchus or lung (principal)

== ENCOUNTER 2016-08-07 13:44 | Inpatient (IN) | payer OTHER ==
[~2016-08-07] VITALS: Ht 162.6 cm; Wt 57.2 kg
[~2016-08-07 13:44] MED LIST changes: -ATOR-24 PO; -CHECK FENTANYL; -DRGTP12 TD; -DXM/4 PO; -INSDGIPEN SC; -INSHRIE SC; -INSU1INJ SC; -NUTR-7 PO; -OMEP40CA41 PO; -RXNS20 PO; -RXNS5 PO; -SYMIN INH; -TRMO115 TOP; -VNTHFA/IN INH; -WARF3TAB6 PO
[2016-08-07] MEDS ORDERED: SODIUM CHLORIDE 0.9% 1000ML 1,000 ML IV ONE (14:00)
[2016-08-07] MEDS ORDERED: ALBUT/IPRATROP 3MG/0.5MG NEB 3 ML VIAL INH STA (14:00)
[2016-08-07] MEDS ORDERED: MoRPHine SULFATE 10 MG/ML CARP/VIAL IV STA (14:03)
[2016-08-07] MEDS ORDERED: ONDANSETRON INJ 2 MG/ML 2 ML VIAL IV STA (14:03)
--- NOTE | 2016-08-07 14:04 | EMERGENCY ROOM VISIT NOTE ---
History Report prepared by [place]: Eladio Hoang Under the Supervision of: Dr. Ashish Matthew M.D. First contact with patient: 13:58 Chief Complaint: RESPIRATORY DISTRESS Stated Complaint: SHORTNESS OF BREATH History of Present Illness The patient is a 56 year old male who presents to the Emergency Room with complaints of persistent shortness of breath beginning earlier today. He notes he uses supplemental oxygen, and is currently being treated for cancer. His last chemotherapy treatment was yesterday. The patient was sent over from [facility]. Source of History: patient Onset: earlier today Position: other (lungs) Quality: other (shortness of breath) Timing: other (persistent) Associated Symptoms: + weakness Review of Systems See HPI for pertinent positives & negatives. A total of 10 systems reviewed and were otherwise negative. Past Medical & Surgical Medical Problems: (1) Chest pain (2) Mal Murphy Bronch/Lung Nos (3) Metastatic cancer to brain (4) Pulmonary embolism (5) Solitary Pulmonary Nodule Family History Diabetes mellitus FATHER Social History Smoking Status: Former Smoker Drug Use: none Marital Status: single Housing Status: other Occupation Status: other Current/Historical Medications Scheduled Acetaminophen (Tylenol), 650 MG PO TID Atorvastatin (Lipitor), 40 MG PO HS Dexamethasone (Decadron), 6 MG PO BID Nutritional Supplements (Boost), 1 BTL PO PC Omeprazole (Prilosec), 40 MG PO DAILY Oxygen (Oxygen), 2 LITERS NA UD Triamcinolone Acet (Triamcinolone Acetonide), 1 APPLN TOP TID Warfarin Sod (Jantoven), 1.5 MG PO DAILY Scheduled PRN Albuterol Hfa (Ventolin Hfa), 2 PUFFS INH QID PRN for Shortness of Breath Benzonatate (Tessalon Perles), 100 MG PO TID PRN for Cough Ipratropium-Albuterol (Duoneb), 1 TREATMENT INH QID PRN for Shortness of Breath Ondansetron Hcl (Zofran), 8 MG PO BID PRN for Nausea or Vomiting Tramadol (Ultram), 50 MG PO BID PRN for Pain Allergies Coded Allergies: Talc (Verified Allergy, Severe, SOB - Baby Powder, 06/10/16) Nafcillin (Verified Allergy, Unknown, sob,n/v, 08/07/16) Penicillins (Verified Allergy, Unknown, SHORTNESS OF BREATH, 08/07/16) Physical Exam Vital Signs Date Time Temp Pulse Resp B/P Pulse Ox O2 Delivery O2 Flow Rate FiO2 08/07/16 15:55 112 26 130/93 96 Room Air 08/07/16 14:43 120 99 08/07/16 14:42 120 21 99 BiPAP/CPAP 50 08/07/16 14:12 95 Non-Rebreather 15.0 08/07/16 14:10 95 Non-Rebreather 15.0 08/07/16 14:03 130 08/07/16 13:56 36.4 125 24 149/97 94 Non-Rebreather 15.0 Physical Exam GENERAL: Patient is pale in appearance, and appears acutely short of breath. HEAD: Normocephalic atraumatic EYES: Ocular movements intact pupils equal and react to light OROPHARYNX mucous membranes are moist no exudates present no erythema or edema present NECK: Supple no nuchal rigidity CHEST: Good equal expansion LUNGS: Clear and equal to auscultation CARDIAC: Normal S1 and S2 ABDOMEN: Soft nontender no guarding BACK: No CVA tenderness EXTREMITIES: No pain upon palpation normal muscle strength in all groups no clubbing cyanosis or edema NEURO: Patient is following commands is answering questions appropriately. Alert and oriented x3 Cranial Nerves 2-12 grossly intact Medical Decision & Procedures ER Provider Diagnostic Interpretation: Radiology results as stated below per my review and radiologist interpretation: CHEST ONE VIEW PORTABLE FINDINGS: A persistent right apical cavity is again noted. Severe emphysema is present. There is a small right pleural effusion. There is no evidence of pulmonary edema. Cardiac size is stable. There is mild right hemithorax volume loss. Right perihilar masslike opacity is again noted. Right lower lung airspace opacity with interstitial thickening has slightly increased. IMPRESSION: 1. Slight progression of the right perihilar mass-like opacity and right lower lung interstitial thickening. 2. Persistent right apical cavity. 3. Severe emphysema. Electronically signed by: Levy Ansari M.D. 08/07/2016 2:20 PM Dictated Date/Time: 08/07/2016 2:[address] ANGIOGRAPHY OF THE CHEST, PULMONARY EMBOLUS PROTOCOL FINDINGS: Multiple left-sided lobar and segmental pulmonary emboli are noted. Thrombus burden has likely increased since exam of June 09, 2016. The heart is mildly enlarged. Several necrotic right pleural implants/lymph nodes are noted. The largest is a 3.5 cm right paratracheal necrotic abnormality which is increased in size since exam of June 09, 2016. Numerous enhancing pleural nodules within the right hemithorax have increased increased since CT of October or 01/11/2016 and are similar to PET/CT of July 27, 2016. Severe emphysema is noted. A large right apical bulla containing a small fluid level is not significantly changed. Extensive masslike consolidation within the right lower lobe has progressed since exam of October or 01/11/2016 and is similar to recent CT of the chest. The appearance of the chest is similar to prior PET/CT. A small right pleural effusion is noted. No suspicious osseous lesions are present. There are several suspected hepatic cysts. IMPRESSION: 1. Several left sided lobar and segmental pulmonary emboli. Embolus burden is likely increased since CT of June 09, 2016. 2. Extensive malignancy within the right hemithorax including parenchymal and pleural metastases. No significant change since PET/CT of July 27, 2016. Progression of metastatic disease since exam of June 09, 2016. 3. Severe emphysema. Electronically signed by: Levy Ansari M.D. 08/07/2016 4:32 PM Dictated Date/Time: 08/07/2016 4:19 PM Laboratory Results 08/07/16 15:10 Red Blood Count 3.45, Mean Corpuscular Volume 86.1, Mean Corpuscular Hemoglobin 29.0, Mean Corpuscular Hemoglobin Concent 33.7, Mean Platelet Volume 8.8, Neutrophils (%) (Auto) 93.1, Lymphocytes (%) (Auto) 3.7, Monocytes (%) (Auto) 2.1, Eosinophils (%) (Auto) 0.0, Basophils (%) (Auto) 0.0, Neutrophils # (Auto) 21.47, Lymphocytes # (Auto) 0.86, Monocytes # (Auto) 0.49, Eosinophils # (Auto) 0.00, Basophils # (Auto) 0.01 08/07/16 15:10 Test 08/07/16 14:25 08/07/16 15:05 08/07/16 15:10 08/07/16 16:00 Influenza Type A (RT-PCR) Neg for Influ A (NEG) Influenza Type A Antigen Neg for Influ A (NEG) Influenza Type B Antigen Neg for Influ B (NEG) Influenza Type B (RT-PCR) Neg for Influ B (NEG) Bedside Hemoglobin 10.2 g/dl (14.0-18.0) Bedside Hematocrit 30 % (42-52) Bedside Sodium 131 mEq/L (135-144) Bedside Potassium 4.2 mEq/L (3.3-5.0) Bedside Chloride 97 mEq/L (101-112) Bedside Total CO2 24 mEq/l (24-31) Bedside Blood Urea Nitrogen 17 mg/dl (7-18) Bedside Creatinine 0.8 mg/dl (0.6-1.3) Bedside Glucose (other) 387 mg/dl (70-99) Bedside Ionized Calcium (Ivan) 1.12 mmol/l (1.12-1.32) White Blood Count 23.08 K/uL (4.8-10.8) Red Blood Count 3.45 M/uL (4.7-6.1) Hemoglobin 10.0 g/dL (14.0-18.0) Hematocrit 29.7 % (42-52) Mean Corpuscular Volume 86.1 fL (80-100) Mean Corpuscular Hemoglobin 29.0 pg (25-34) Mean Corpuscular Hemoglobin Concent 33.7 g/dl (32-36) Platelet Count 78 K/uL (130-400) Mean Platelet Volume 8.8 fL (7.4-10.4) Neutrophils (%) (Auto) 93.1 % Lymphocytes (%) (Auto) 3.7 % Monocytes (%) (Auto) 2.1 % Eosinophils (%) (Auto) 0.0 % Basophils (%) (Auto) 0.0 % Neutrophils # (Auto) 21.47 K/uL (1.4-6.5) Lymphocytes # (Auto) 0.86 K/uL (1.2-3.4) Monocytes # (Auto) 0.49 K/uL (0.11-0.59) Eosinophils # (Auto) 0.00 K/uL (0-0.5) Basophils # (Auto) 0.01 K/uL (0-0.2) RDW Standard Deviation 47.0 fL (36.4-46.3) RDW Coefficient of Variation 15.2 % (11.5-14.5) Immature Granulocyte % (Auto) 1.1 % Immature Granulocyte # (Auto) 0.25 K/uL (0.00-0.02) Nucleated RBC Absolute Count (auto) 0.11 K/uL (0-0) Nucleated Red Blood Cells % 0.5 % Tear Drop Cells 1+ Prothrombin Time 37.4 SECONDS (9.0-12.0) Prothromb Time International Ratio 3.3 (0.9-1.1) Activated Partial Thromboplast Time 38.1 SECONDS (21.0-31.0) Partial Thromboplastin Ratio 1.5 Anion Gap 11.0 mmol/L (3-11) Est Creatinine Clear Calc Drug Dose 56.1 ml/min Estimated GFR () 87.1 Estimated GFR (Non- 75.2 BUN/Creatinine Ratio 16.2 (10-20) Calcium Level 8.0 mg/dl (8.5-10.1) Total Bilirubin 0.3 mg/dl (0.2-1) Aspartate Amino Transf (AST/SGOT) 24 U/L (15-37) Alanine Aminotransferase (ALT/SGPT) 27 U/L (12-78) Alkaline Phosphatase 109 U/L (45-117) Total Creatine Kinase 72 U/L (39-308) Creatine Kinase MB 2.5 ng/ml (0.5-3.6) Creatine Kinase MB Ratio 3.5 (0-3.0) Troponin I 1.620 ng/ml (0-0.045) Total Protein 5.6 gm/dl (6.4-8.2) Albumin 2.3 gm/dl (3.4-5.0) Globulin 3.3 gm/dl (2.5-4.0) Albumin/Globulin Ratio 0.7 (0.9-2) Beta-Hydroxybutyric Acid 0.95 mg/dL (0.2-2.81) Urine Color YELLOW Urine Appearance CLEAR (CLEAR) Urine pH 5.5 (4.5-7.5) Urine Specific [place] 1.021 (1.000-1.030) Urine Protein 1+ (NEG) Urine Glucose (UA) 3+ (NEG) Urine Ketones NEG (NEG) Urine Occult Blood TRACE (NEG) Urine Nitrite NEG (NEG) Urine Bilirubin NEG (NEG) Urine Urobilinogen NEG (NEG) Urine Leukocyte Esterase NEG (NEG) Urine WBC (Auto) 0 /hpf (0-5) Urine RBC (Auto) 0-4 /hpf (0-4) Urine Hyaline Casts (Auto) 0 /lpf (0-5) Urine Epithelial Cells (Auto) 0-5 /lpf (0-5) Urine Bacteria (Auto) NEG (NEG) Labs reviewed by ED physician. Medications Administered Medications (Trade) Dose Ordered Sig/Jevon Route Start Time Stop Time Status Last Admin Dose Admin Sodium Chloride (Nss 1000ml) 1,000 ml @ 999 mls/hr Q1H1M ONCE IV 08/07/16 14:00 08/07/16 15:00 DC 08/07/16 14:27 999 MLS/HR Albuterol/ Ipratropium (Duoneb) 12 ml ONE STAT INH 08/07/16 14:00 08/07/16 14:04 DC 08/07/16 14:39 12 ML Ondansetron HCl (Zofran Inj) 4 mg NOW STAT IV 08/07/16 14:03 08/07/16 14:04 DC 08/07/16 14:28 4 MG Morphine Sulfate (MoRPHine SULFATE INJ) 2 mg STK-MED ONCE .ROUTE 08/07/16 14:20 08/07/16 14:23 DC 08/07/16 14:28 2 MG Morphine Sulfate 4 mg 4 mg STK-MED ONCE .ROUTE 08/07/16 14:20 08/07/16 14:24 DC 08/07/16 14:27 4 MG Cefepime HCl/ Dextrose (Maxipime IV/D5 100ml) 112.5 ml @ 200 mls/hr NOW STAT IV 08/07/16 15:26 08/07/16 15:59 DC 08/07/16 16:13 200 MLS/HR ECG Indication: SOB/dyspnea Rate (beats per minute): 123 Rhythm: sinus tachycardia Findings: no acute ischemic change, no ectopy ED Course 1358: Past medical records reviewed. The patient was evaluated in room C4. A complete history and physical examination was performed. 1400: Ordered Duoneb 12 ml INH, and NSS 1,000 ml @ 999 mls/hr IV. 1403: Ordered Zofran Inj 4 mg IV, and Morphine Sulfate 6 mg IV. 1526: Ordered Vancomycin HCl 1,000 mg/Sodium Chloride 270 ml @ 125 mls/hr IV, Levofloxacin 500 mg IV, and Cefepime HCl 2,000 mg/Dextrose 112.5 ml @ 200 mls/ hr IV. 1623: I discussed the patient's case with Dr. Mars, he has agreed to evaluate the patient for further management and care. Medical Decision Differential diagnosis: Etiologies such as infections, reactive airway disease, pneumonia, pneumothorax , COPD, CHF, cardiac ischemia, pulmonary embolism, musculoskeletal, gastrointestinal, as well as others were entertained. This is a 56-year-old male being treated for lung cancer. The patient received chemotherapy on Monday. He presents emergency Department with hypoxia. The patient is on Coumadin for history of blood clots related to his cancer. His INR is 3.3. The patient does have a high elevation in his white blood count. The patient was placed on BiPAP in the emergency department given an hour-long breathing treatment area he appears to have a pneumonia. He was started on Zosyn and Levaquin and vancomycin. I did discuss the case with the hospitalist service who agreed to admit the patient. Patient and care providers were in agreement with the treatment plan. Consults Time Called: 1615 Consulting Physician: [place]. [place], [facility] [place] Call: [phone] I discussed the patient's case with Dr. Mars, he has agreed to evaluate the patient for further management and care. Impression Primary Impression: Hypoxia Additional Impressions: Pneumonia Pulmonary embolus Critical Care I have personally spent greater than 30 minutes of critical care time in the direct management of this patient. This includes bedside care, interpretation of diagnostic studies, and testing, discussion with consultants, patient, and family members, and other required patient management activities. This 30 minutes is in excess of all separately billable procedures. Scribe Attestation The scribe's documentation has been prepared under my direction and personally reviewed by me in its entirety. I confirm that the note above accurately reflects all work, treatment, procedures, and medical decision making performed by me. Departure Information Dispostion Being Evaluated By Hospitalist Referrals Rima DOOLEY (PCP) Patient Instructions Asthma - [facility], COPD - [facility], Croup - [facility], My [facility] Health Problem Qualifiers Additional Impressions: Pneumonia Pneumonia type: due to unspecified organism Laterality: unspecified laterality Lung location: unspecified part of lung Qualified Codes: J18.9 - Pneumonia, unspecified organism Pulmonary embolus Pulmonary embolism type: other Chronicity: acute Acute cor pulmonale presence: without acute cor pulmonale Qualified Codes: I26.99 - Other pulmonary embolism without acute cor pulmonale
[2016-08-07] MEDS ORDERED: MoRPHine SULFATE 4 MG/ML 1 ML CARP\\VIAL ONE (14:20)
[2016-08-07] MEDS ORDERED: MoRPHine SULFATE 2 MG/ML CARP ONE (14:20)
--- NOTE | 2016-08-07 14:22 | DIAGNOSTIC IMAGING REPORT ---
CHEST ONE VIEW PORTABLE CLINICAL HISTORY: Sepsis. Shortness of breath. Lung cancer. COMPARISON STUDY: Chest CT June 09, 2016 and chest radiograph June 11, 2016. FINDINGS: A persistent right apical cavity is again noted. Severe emphysema is present. There is a small right pleural effusion. There is no evidence of pulmonary edema. Cardiac size is stable. There is mild right hemithorax volume loss. Right perihilar masslike opacity is again noted. Right lower lung airspace opacity with interstitial thickening has slightly increased. IMPRESSION: 1. Slight progression of the right perihilar mass-like opacity and right lower lung interstitial thickening. 2. Persistent right apical cavity. 3. Severe emphysema. Electronically signed by: Levy Ansari M.D. 08/07/2016 2:20 PM Dictated Date/Time: 08/07/2016 2:16 PM
[2016-08-07] MEDS ORDERED: OPTIRAY 320 IV PRN (14:30)
[2016-08-07] MEDS ORDERED: DXM/4 PO (14:31)
[2016-08-07] MEDS ORDERED: ATOR-24 PO (14:31)
[2016-08-07] MEDS ORDERED: WARF3TAB6 PO (14:32)
[2016-08-07] MEDS ORDERED: OMEP40CA41 PO (14:32)
[2016-08-07] MEDS ORDERED: OXGN (14:32)
[2016-08-07] MEDS ORDERED: VNTHFA/IN INH (14:32)
[2016-08-07] MEDS ORDERED: NUTR-7 PO (14:32)
[2016-08-07] MEDS ORDERED: IPRASOL4 INH (14:32)
[2016-08-07] MEDS ORDERED: TRMO115 TOP (14:32)
[2016-08-07 14:42] VITALS: PULSE 120; O2SAT 99
[2016-08-07 14:43] VITALS: PULSE 120; O2SAT 99
[2016-08-07 15:25] LABS: ISTAT CREATININE 0.8 mg/dl (0.6-1.3); ISTAT HEMOGLOBIN 10.2 g/dl (14.0-18.0); ISTAT IONIZED CALCIUM 1.12 mmol/l (1.12-1.32)
[2016-08-07 15:26] LABS: HEMATOCRIT 29.7 % (42-52); MEAN CELL VOLUME 86.1 fL (80-100); MEAN CORPUSCULAR HGB CONC 33.7 g/dl (32-36); RED BLOOD COUNT 3.45 M/uL (4.7-6.1); WHITE BLOOD COUNT 23.08 K/uL (4.8-10.8)
[2016-08-07] MEDS ORDERED: CEFEPIME IV 2,000 MG in DEXTROSE 5% 100ML 100 ML IV STA (15:26)
[2016-08-07] MEDS ORDERED: VANCOMYCIN INJ 1,000 MG in SODIUM CHLORIDE 0.9% 250ML 250 ML IV STA (15:26)
[2016-08-07] MEDS ORDERED: LEVAQUIN 500MG / 100ML D5W IV STA (15:26)
[2016-08-07 15:44] LABS: BUN/CREATININE RATIO 16.2 (10-20); CREATININE 1.1 mg/dl (0.60-1.40); POTASSIUM 4.2 mmol/L (3.5-5.1)
[2016-08-07 15:50] LABS: ALB/GLOB RATIO 0.7 (0.9-2); CKMB/CK RATIO 3.5 (0-3.0)
[2016-08-07 15:54] LABS: BETA-HYDROXYBUTYRATE 0.95 mg/dL (0.2-2.81); INR 3.3 (0.9-1.1); PARTIAL THROMBOPLASTIN RATIO 1.5; PROTHROMBIN TIME (PATIENT) 37.4 SECONDS (9.0-12.0)
[2016-08-07 16:00] LABS: MEAN PLATELET VOLUME 8.8 fL (7.4-10.4); PLATELET COUNT 78 K/uL (130-400)
[2016-08-07 16:04] LABS: BASO ABS # 0.01 K/uL (0-0.2); COMPLETE YES; IG% 1.1 %; LYMPH % 3.7 %; LYMPH ABS # 0.86 K/uL (1.2-3.4); MONO % 2.1 %; NEUT % 93.1 %; TEAR DROP CELLS 1+
[2016-08-07 16:30] LABS: INFLUENZA A PCR Neg for Influ A (NEG); INFLUENZA B PCR Neg for Influ B (NEG)
[2016-08-07 16:32] LABS: URINE APPEARANCE CLEAR (CLEAR); URINE BILIRUBIN NEG (NEG); URINE COLOR YELLOW; URINE EPITHELIAL CELL AUTO 0-5 /lpf (0-5); URINE NITRITE NEG (NEG); URINE PH 5.5 (4.5-7.5); URINE SPECIFIC GRAVITY 1.021 (1.000-1.030); UROBILINOGEN NEG (NEG); ZZUR CULT IF INDIC CLEAN CATCH NO
--- NOTE | 2016-08-07 16:33 | DIAGNOSTIC IMAGING REPORT ---
CT ANGIOGRAPHY OF THE CHEST, PULMONARY EMBOLUS PROTOCOL CLINICAL HISTORY: Hypoxia. Metastatic lung cancer. COMPARISON STUDY: Chest CT June 09, 2016, chest radiograph August 07, 2016 and PET/CT July 27, 2016. TECHNIQUE: Following IV administration of 114 mL of Optiray-320, helical axial images of the chest were obtained utilizing the pulmonary embolus protocol. Maximal intensity projections and sagittal and coronal reformats were viewed on an independent 3D workstation. IV contrast was administered without complication. CT DOSE: 226.63 mGy.cm FINDINGS: Multiple left-sided lobar and segmental pulmonary emboli are noted. Thrombus burden has likely increased since exam of June 09, 2016. The heart is mildly enlarged. Several necrotic right pleural implants/lymph nodes are noted. The largest is a 3.5 cm right paratracheal necrotic abnormality which is increased in size since exam of June 09, 2016. Numerous enhancing pleural nodules within the right hemithorax have increased increased since CT of October or 01/11/2016 and are similar to PET/CT of July 27, 2016. Severe emphysema is noted. A large right apical bulla containing a small fluid level is not significantly changed. Extensive masslike consolidation within the right lower lobe has progressed since exam of October or 01/11/2016 and is similar to recent CT of the chest. The appearance of the chest is similar to prior PET/CT. A small right pleural effusion is noted. No suspicious osseous lesions are present. There are several suspected hepatic cysts. IMPRESSION: 1. Several left sided lobar and segmental pulmonary emboli. Embolus burden is likely increased since CT of June 09, 2016. 2. Extensive malignancy within the right hemithorax including parenchymal and pleural metastases. No significant change since PET/CT of July 27, 2016. Progression of metastatic disease since exam of June 09, 2016. 3. Severe emphysema. Electronically signed by: Levy Ansari M.D. 08/07/2016 4:32 PM Dictated Date/Time: 08/07/2016 4:19 PM
[2016-08-07 16:47] LABS: MANUAL MICROSCOPIC REQUIRED? NO; REVIEW REQ? NO
[2016-08-07] MEDS ORDERED: TRAMADOL HCL 50 MG TAB PO PRN (17:15)
[2016-08-07] MEDS ORDERED: ONDANSETRON 4 MG TAB PO PRN (17:15)
[2016-08-07] MEDS ORDERED: ONDANSETRON INJ 2 MG/ML 2 ML VIAL IV PRN (17:15)
[2016-08-07] MEDS ORDERED: ALBUTEROL HFA 8 GM INHALER INH PRN (17:15)
[2016-08-07] MEDS ORDERED: ACETAMINOPHEN 325 MG TAB PO PRN (17:15)
[2016-08-07] MEDS ORDERED: CEFTRIAXONE SOD INJ 1 GM in DEXTROSE 5% ADD-VANTAGE 50ML 50 ML IV SCH (17:30)
--- NOTE | 2016-08-07 17:43 | History and Physical ---
History & Physical Date & Time of Service: Aug 07, 2016 at 17:24 Chief Complaint: Shortness Of Breath Primary Care Physician: Rima DOOLEY History of Present Illness Source: patient, hospital records Pt is a 56 yo male with known stage IV non small-cell lung carcinoma that has progression of his disease, MCA infarct and extensive PE who presents to ER with worsening sob and hemoptysis for past 3 days. Pt reports undergoing his first treatment for his cancer last monday. Pt states symptoms continued into today. Pt reports also associated right sided chest pain worse on inspiration. Pt states fevers and chills on and off as well. Pt was treated in May 2016 for new acute MCA infarct likely of embolic origin. Pt has been on coumadin for PE as well. CTA on arrival to ER noted increasing right sided tumor burden in addition to increasing PE despite supratherapeutic INR. Past Medical/Surgical History Medical Problems: (1) Malignant neoplasm of bronchus and lung, unspecified site Permanent Comment: Weight loss and shortness of breath Abnormal chest x-ray with CT showing a right upper lobe mass Abnormal PET/CT Status post bronchoscopy and biopsy 12/10/2014 showing non-small cell lung CA Admission for postobstructive pneumonia Initially to have debilitated for combined therapy and patient declined chemotherapy Status post completion of radiation therapy 03/02/2015 received 6660 cGy Systemic chemotherapy Syncopal episode and finding of brain metastasis Status post completion of radiation therapy utilizing stereotactic therapy completed 03/10/2016 received 2100 cGy Status: Chronic (2) Solitary Pulmonary Nodule Status: Chronic Family History Diabetes mellitus FATHER Social History Smoking Status: Former Smoker Drug Use: none Marital Status: single Occupational Status: other Immunizations History of Influenza Vaccine: Yes History of Tetanus Vaccine?: Unknown History of Pneumococcal: No History of Hepatitis B Vaccine: No Multi-Drug Resistant Organisms History of MDRO: No Allergies Coded Allergies: Talc (Verified Allergy, Severe, SOB - Baby Powder, 06/10/16) Nafcillin (Verified Allergy, Unknown, sob,n/v, 08/07/16) Penicillins (Verified Allergy, Unknown, SHORTNESS OF BREATH, 08/07/16) Home Medications Scheduled Acetaminophen (Tylenol), 650 MG PO TID Atorvastatin (Lipitor), 40 MG PO HS Dexamethasone (Decadron), 6 MG PO BID Nutritional Supplements (Boost), 1 BTL PO PC Omeprazole (Prilosec), 40 MG PO DAILY Oxygen (Oxygen), 2 LITERS NA UD Triamcinolone Acet (Triamcinolone Acetonide), 1 APPLN TOP TID Warfarin Sod (Jantoven), 1.5 MG PO DAILY Scheduled PRN Albuterol Hfa (Ventolin Hfa), 2 PUFFS INH QID PRN for Shortness of Breath Benzonatate (Tessalon Perles), 100 MG PO TID PRN for Cough Ipratropium-Albuterol (Duoneb), 1 TREATMENT INH QID PRN for Shortness of Breath Ondansetron Hcl (Zofran), 8 MG PO BID PRN for Nausea or Vomiting Tramadol (Ultram), 50 MG PO BID PRN for Pain Review of Systems Constitutional: + chills, + fever Eyes: No eye pain, No worsening of vision Respiratory: + cough, + dyspnea at rest, + dyspnea on exertion, + hemoptysis, + shortness of breath, + sputum Cardiovascular: + chest pain, No edema, No orthopnea Abdomen: No constipation, No diarrhea, No nausea, No pain, No vomiting Musculoskeletal: + joint pain, No muscle pain Genitourinary - Male: No dysuria, No hematuria, No urinary frequency Neurologic: No paralysis, No weakness Psychiatric: No anhedonism, No depression symptoms Physical Exam Vital Signs Date Time Temp Pulse Resp B/P Pulse Ox O2 Delivery O2 Flow Rate FiO2 08/07/16 16:59 120 20 126/87 96 BiPAP 08/07/16 15:55 112 26 130/93 96 Room Air 08/07/16 14:43 120 99 08/07/16 14:42 120 21 99 BiPAP/CPAP 50 08/07/16 14:12 95 Non-Rebreather 15.0 08/07/16 14:10 95 Non-Rebreather 15.0 08/07/16 14:03 130 08/07/16 13:56 36.4 125 24 149/97 94 Non-Rebreather 15.0 General Appearance: WD/WN, + mild distress Head: normocephalic, atraumatic Eyes: PERRL, EOMI Neck: supple, no adenopathy Respiratory/Chest: + decreased breath sounds, + rhonchi, + wheezing Cardiovascular: no gallop, no JVD, + tachycardia Abdomen/GI: non tender, soft Back: normal inspection, no CVA tenderness Neurologic/Psych: alert, normal mood/affect, oriented x 3 Diagnostics Laboratory Results Results Past 24 Hours Test 08/07/16 14:25 08/07/16 15:05 08/07/16 15:10 08/07/16 16:00 Range/Units Influenza Type A (RT-PCR) Neg for Influ A NEG Influenza Type A Antigen Neg for Influ A NEG Influenza Type B Antigen Neg for Influ B NEG Influenza Type B (RT-PCR) Neg for Influ B NEG Bedside Hemoglobin 10.2 14.0-18.0 g/dl Bedside Hematocrit 30 42-52 % Bedside Sodium 131 135-144 mEq/L Bedside Potassium 4.2 3.3-5.0 mEq/L Bedside Chloride 97 101-112 mEq/L Bedside Total CO2 24 24-31 mEq/l Anion Gap 15.0 11.0 3-11 mmol/L Bedside Blood Urea Nitrogen 17 7-18 mg/dl Bedside Creatinine 0.8 0.6-1.3 mg/dl Bedside Glucose (other) 387 70-99 mg/dl Bedside Ionized Calcium (Ivan) 1.12 1.12-1.32 mmol/l White Blood Count 23.08 4.8-10.8 K/uL Red Blood Count 3.45 4.7-6.1 M/uL Hemoglobin 10.0 14.0-18.0 g/dL Hematocrit 29.7 42-52 % Mean Corpuscular Volume 86.1 80-100 fL Mean Corpuscular Hemoglobin 29.0 25-34 pg Mean Corpuscular Hemoglobin Concent 33.7 32-36 g/dl Platelet Count 78 130-400 K/uL Mean Platelet Volume 8.8 7.4-10.4 fL Neutrophils (%) (Auto) 93.1 % Lymphocytes (%) (Auto) 3.7 % Monocytes (%) (Auto) 2.1 % Eosinophils (%) (Auto) 0.0 % Basophils (%) (Auto) 0.0 % Neutrophils # (Auto) 21.47 1.4-6.5 K/uL Lymphocytes # (Auto) 0.86 1.2-3.4 K/uL Monocytes # (Auto) 0.49 0.11-0.59 K/uL Eosinophils # (Auto) 0.00 0-0.5 K/uL Basophils # (Auto) 0.01 0-0.2 K/uL RDW Standard Deviation 47.0 36.4-46.3 fL RDW Coefficient of Variation 15.2 11.5-14.5 % Immature Granulocyte % (Auto) 1.1 % Immature Granulocyte # (Auto) 0.25 0.00-0.02 K/uL Nucleated RBC Absolute Count (auto) 0.11 0-0 K/uL Nucleated Red Blood Cells % 0.5 % Tear Drop Cells 1+ Prothrombin Time 37.4 9.0-12.0 SECONDS Prothromb Time International Ratio 3.3 0.9-1.1 Activated Partial Thromboplast Time 38.1 21.0-31.0 SECONDS Partial Thromboplastin Ratio 1.5 Sodium Level 136 136-145 mmol/L Potassium Level 4.2 3.5-5.1 mmol/L Chloride Level 99 98-107 mmol/L Carbon Dioxide Level 26 21-32 mmol/L Blood Urea Nitrogen 18 7-18 mg/dl Creatinine 1.10 0.60-1.40 mg/dl Est Creatinine Clear Calc Drug Dose 56.1 ml/min Estimated GFR () 87.1 Estimated GFR (Non- 75.2 BUN/Creatinine Ratio 16.2 10-20 Random Glucose 368 70-99 mg/dl Calcium Level 8.0 8.5-10.1 mg/dl Total Bilirubin 0.3 0.2-1 mg/dl Aspartate Amino Transf (AST/SGOT) 24 15-37 U/L Alanine Aminotransferase (ALT/SGPT) 27 12-78 U/L Alkaline Phosphatase 109 45-117 U/L Total Creatine Kinase 72 39-308 U/L Creatine Kinase MB 2.5 0.5-3.6 ng/ml Creatine Kinase MB Ratio 3.5 0-3.0 Troponin I 1.620 0-0.045 ng/ml Total Protein 5.6 6.4-8.2 gm/dl Albumin 2.3 3.4-5.0 gm/dl Globulin 3.3 2.5-4.0 gm/dl Albumin/Globulin Ratio 0.7 0.9-2 Beta-Hydroxybutyric Acid 0.95 0.2-2.81 mg/dL Urine Color YELLOW Urine Appearance CLEAR CLEAR Urine pH 5.5 4.5-7.5 Urine Specific [place] 1.021 1.000-1.030 Urine Protein 1+ NEG Urine Glucose (UA) 3+ NEG Urine Ketones NEG NEG Urine Occult Blood TRACE NEG Urine Nitrite NEG NEG Urine Bilirubin NEG NEG Urine Urobilinogen NEG NEG Urine Leukocyte Esterase NEG NEG Urine WBC (Auto) 0 0-5 /hpf Urine RBC (Auto) 0-4 0-4 /hpf Urine Hyaline Casts (Auto) 0 0-5 /lpf Urine Epithelial Cells (Auto) 0-5 0-5 /lpf Urine Bacteria (Auto) NEG NEG Test 08/07/16 17:20 08/07/16 17:21 Range/Units Microbiology Results 08/07/16 Blood Culture, Received Pending 08/07/16 Blood Culture, Received Pending Impression Assessment and Plan Pt is a 56 yo male with known stage IV non small cell lung carcinoma that has progression of his disease, MCA infarct and PE who presents with with sob and hemoptysis for past 3 days Acute on chronic resp failure likely multifactorial from extensive PE, increasing tumor burden and ?PNA. Will admit to tele at this time. Elev WBC of 23.08. Will start on rocephin, levaquin and vancomycin. Obtain sputum cx if possible, blood cx pending Hemoptysis likely from increasing PE and tumor burden and ?PNA, Heme/onc consulted, Hold coumadin for now. INR supratherapeutic. Hg stable, above baseline. Will not reverse coumadin due to worsening PE and sob. Await heme/onc recommendations Left ankle pain x 3 weeks, will repeat XR. Noted swelling and pain Elev trops likely from PE and right heart strain, no EKG changes, cont to trend trops Hx of distal MCA infarct 05/2016, possibly secondary to emboli of an unknown source Cont statin Non small cell lung cancer with brain metastasis, first treatment completed last saturday 08/05 consult heme onc, o2 per nursing protocol Chemical DVT Prophylaxis contraindicated Pt is FULL CODE VTE Prophylaxis VTE Risk Assessment Done? Y/N: Yes Risk Level: Moderate
--- NOTE | 2016-08-07 18:24 | DIAGNOSTIC IMAGING REPORT ---
LEFT ANKLE MIN 3 VIEWS ROUTINE CLINICAL HISTORY: Left ankle pain. COMPARISON: None FINDINGS: Alignment of the left ankle is anatomic. There is no acute fracture. Mild soft tissue swelling is present. Talar dome is intact. IMPRESSION: 1. No acute fracture or dislocation of the left ankle. 2. Soft tissue swelling of the left ankle. Electronically signed by: Levy Ansari M.D. 08/07/2016 6:23 PM Dictated Date/Time: 08/07/2016 6:22 PM
[2016-08-07] MEDS ORDERED: VANCOMYCIN CONSULT ACTIVE PRN (19:30)
[2016-08-07] MEDS ORDERED: CEFEPIME CONSULT ACTIVE PRN ×2 (19:30)
[2016-08-07 19:31] VITALS: BP 154/93; PULSE 128; TEMP 36.6; O2SAT 95; BMI 19.7
[2016-08-07] MEDS: ALBUT/IPRATROP 3MG/0.5MG NEB 3 ML VIAL INH SCH (19:35)
--- NOTE | 2016-08-07 19:38 | Pharmacy Progress Note ---
Pharmacy Antibiotic Consult Date of Service: Aug 07, 2016. Pharmacy Dosing Scope Pharmacy is consulted to initiate Vancomycin IV dosing therapy, order appropriate labs and adjust drug dose/frequency. Subjective The patient is a 56 year old male admitted on Aug 07, 2016 at 17:13 with possible pneumonia. Objective Height (Feet): 5 Height (Inches): 1.00 Weight (Kilograms): 54.100 Lab Results (24hrs): Laboratory Tests Test 08/07/16 15:10 BUN/Creatinine Ratio 16.2 Blood Urea Nitrogen 18 mg/dl Creatinine 1.10 mg/dl White Blood Count 23.08 K/uL Red Blood Count 3.45 M/uL Hemoglobin 10.0 g/dL Hematocrit 29.7 % Mean Corpuscular Volume 86.1 fL Mean Corpuscular Hemoglobin 29.0 pg Mean Corpuscular Hemoglobin Concent 33.7 g/dl Platelet Count 78 K/uL Mean Platelet Volume 8.8 fL Neutrophils (%) (Auto) 93.1 % Lymphocytes (%) (Auto) 3.7 % Monocytes (%) (Auto) 2.1 % Eosinophils (%) (Auto) 0.0 % Basophils (%) (Auto) 0.0 % Neutrophils # (Auto) 21.47 K/uL Lymphocytes # (Auto) 0.86 K/uL Monocytes # (Auto) 0.49 K/uL Eosinophils # (Auto) 0.00 K/uL Basophils # (Auto) 0.01 K/uL Assessment & Plan 56 yo M admitted with possible pneumonia/HCAP, initiated on broad spectrum antibiotics: Vancomycin, Levaquin, Cefepime IV. Pt currently receiving treatment for stage IV non-small cell lung cancer. Given immunosuppression and that he resides at group home, wanted to go more broad initially. Plan to follow up cultures tomorrow, including MRSA nasal swab, and deescalate if possible. Vancomycin * Loading dose: 1000 mg(18.5 mg/kg) IV X 1 dose given in the ED * Continue 750 mg IV every 12 hours. * Dose based on T1/2~11 hrs which is more in line with baseline renal function than current renal function * If renal function worsens, dose will need adjusted * Initiate dose sooner than 12 hours since loading dose not 25 mg/kg * Goal trough level estimate: between 15 - 20 mcg/mL. * A trough level has been ordered for: prior to the 1200 dose. Cefepime * Target dose 2 g IV every 8 hours * Reduce to 2 g IV every 12 hours for CrCL 30-60 mL/min Levaquin * 750 mg IV every 24 hours * No renal adjustment necessary Pharmacy will continue to follow and will adjust dose/frequency as necessary. Thank you
[2016-08-07 19:46] VITALS: PULSE 121; O2SAT 86
[2016-08-07 19:47] VITALS: PULSE 127; O2SAT 91
[2016-08-07] MEDS ORDERED: ALBUT/IPRATROP 3MG/0.5MG NEB 3 ML VIAL INH SCH (20:00)
[2016-08-07] MEDS: LEVOFLOXACIN / D5W 750 MG in PREMIXED IN D5W 150 ML IV SCH (20:39)
[2016-08-07] MEDS: SODIUM CHLORIDE 0.9% 1000ML 1,000 ML IV SCH (20:40)
[2016-08-07] MEDS: BOOST VANILLA PO SCH ×2 (21:00)
[2016-08-07] MEDS: ACETAMINOPHEN 325 MG TAB PO SCH (21:24)
[2016-08-07] MEDS: ATORVASTATIN 40 MG TAB PO SCH (21:24)
[2016-08-07] MEDS: DEXAMETHASONE 4 MG TAB PO SCH (21:24)
[2016-08-07 23:41] VITALS: BP 127/81; PULSE 119; TEMP 36.4; O2SAT 94
[2016-08-08] VITALS (13 sets, daily range): BP systolic 124–142; BP diastolic 74–87; PULSE 103–121; TEMP 36.4–37.1; O2SAT 50–99; BMI 20.9
[2016-08-08] MEDS: SODIUM CHLORIDE 0.9% 1000ML 1,000 ML IV SCH ×3 (03:26→23:58)
[2016-08-08] MEDS: CEFEPIME IV 2000 MG in DEXTROSE 5% 100ML IV SCH ×2 (03:53→16:48)
[2016-08-08 06:18] LABS: ESTIMATED AVERAGE GLUCOSE 189 mg/dl; HA1C FLAG Normal (Normal)
[2016-08-08 06:36] LABS: HEMATOCRIT 30.7 % (42-52); MEAN CELL VOLUME 87.7 fL (80-100); MEAN CORPUSCULAR HEMOGLOBIN 29.1 pg (25-34); MEAN CORPUSCULAR HGB CONC 33.2 g/dl (32-36); WHITE BLOOD COUNT 19.52 K/uL (4.8-10.8)
[2016-08-08 06:50] LABS: INR 2.1 (0.9-1.1); PROTHROMBIN TIME (PATIENT) 23.2 SECONDS (9.0-12.0)
[2016-08-08] MEDS: ALBUT/IPRATROP 3MG/0.5MG NEB 3 ML VIAL INH SCH ×4 (06:53→20:16)
[2016-08-08 07:08] LABS: BUN/CREATININE RATIO 19.2 (10-20); CALCIUM 8.4 mg/dl (8.5-10.1); CREATININE 0.84 mg/dl (0.60-1.40); POTASSIUM 4.2 mmol/L (3.5-5.1)
--- NOTE | 2016-08-08 07:09 | DIAGNOSTIC IMAGING REPORT ---
ULTRASOUND BILATERAL LOWER EXTREMITY VENOUS CLINICAL HISTORY: Left leg pain. COMPARISON STUDY: No priors. TECHNIQUE: Real-time, grayscale, and color Doppler sonography of the deep veins of the right and left lower extremity was performed from the inguinal crease to the calf. Compression and augmentation were utilized. FINDINGS: Right lower extremity: There is occlusive deep venous thrombosis seen throughout the right superficial femoral vein, within the popliteal vein, and extending into the calf. The right common femoral vein is patent and normally compressible. The greater saphenous vein any profunda femoris vein at the junction of the common femoral vein are clear. A small popliteal cyst measures 2.4 x 1.0 x 0.7 cm. Left lower extremity: There is nearly occlusive to occlusive deep venous thrombosis seen extending from the distal left iliac vein into the calf. Superficial venous thrombus is seen in the calf within the sural vein. The greater saphenous vein at the junction with the common femoral vein is clear. There is superficial thrombus within the profunda femoris vein. The IVC is patent proximally but not visualized in the mid to distal portions. IMPRESSION: Extensive bilateral lower extremity deep venous thrombosis as above. Electronically signed by: Loki Hinojosa M.D. 08/08/2016 7:08 AM Dictated Date/Time: 08/08/2016 7:05 AM
[2016-08-08 07:21] LABS: ALB/GLOB RATIO 0.6 (0.9-2)
[2016-08-08 07:22] LABS: BASO % 0.1 %; BASO ABS # 0.02 K/uL (0-0.2); COMPLETE YES; IG% 0.7 %; LYMPH % 1.5 %; LYMPH ABS # 0.29 K/uL (1.2-3.4); MONO % 5.1 %; NEUT % 92.6 %; PLATELET COUNT 82 K/uL (130-400); POLYCHROMASIA 1+
--- NOTE | 2016-08-08 07:48 | Hospitalist Progress Note ---
Hospitalist Progress Note Date of Service Aug 08, 2016. (Teresita Camilo PA-C) Subjective Pt evaluation today including: conversation w/ patient, physical exam, chart review, lab review, review of studies, review of inpatient medication list Pain: Moderate right chest pressure PO Intake: Fair Voiding: no voiding problems The patient was seen and examined this morning. Pt reports feeling chest pressure and tightness this morning. He denies that this is changed from previously. He feels short of breath currently. Pt wore bipap overnight, and was on HFNC this morning but sats were still fairly low. He is on 6L NC at bedside, with O2 sats still only at 87% at rest. He has a cough which is nonproductive. The patient reports starting chemotherapy last Monday, Opdivo He was seen by heme/onc this morning and reports there was discussion about further XRT and possibility of IVC filter placement. Constitutional: No chills, No fever Eyes: No diplopia, No redness ENT: No nasal symptoms, No sore throat, No trouble swallowing Respiratory: + cough, + dyspnea at rest, + shortness of breath, + wheezing Cardiovascular: + chest pain (Right sided), No palpitations Abdomen: No constipation, No diarrhea, No nausea, No pain, No vomiting Musculoskeletal: + swelling (RLE worse than the left, chronic), No joint pain Neurologic: + problem reported (uses wheelchair for ambulation), + weakness Skin: + itch, + rash (Teresita Camilo PA-C) Objective Vital Signs Date Time Temp Pulse Resp B/P Pulse Ox O2 Delivery O2 Flow Rate FiO2 08/08/16 07:30 36.5 104 20 124/81 99 BiPAP 08/08/16 04:00 BiPAP 50 08/08/16 03:41 36.4 120 25 124/87 96 BiPAP 08/08/16 03:40 121 96 50 08/08/16 00:02 BiPAP 50 08/07/16 23:41 36.4 119 26 127/81 94 BiPAP 08/07/16 19:47 127 91 50 08/07/16 19:46 121 22 86 Mask 7.0 08/07/16 19:31 36.6 128 30 154/93 95 BiPAP 08/07/16 19:03 115 99 08/07/16 16:59 120 20 126/87 96 BiPAP 08/07/16 15:55 112 26 130/93 96 Room Air 08/07/16 14:43 120 99 08/07/16 14:42 120 21 99 BiPAP/CPAP 50 08/07/16 14:12 95 Non-Rebreather 15.0 08/07/16 14:10 95 Non-Rebreather 15.0 08/07/16 14:03 130 08/07/16 13:56 36.4 125 24 149/97 94 Non-Rebreather 15.0 (Teresita Camilo, PA-C) Physical Exam General Appearance: WD/WN, + mild distress, + thin, + pertinent finding ( ) Eyes: PERRL, EOMI ENT: hearing grossly normal, pharynx normal, + pertinent finding (mucous membranes slightly dry) Neck: supple, thyroid normal Respiratory/Chest: no accessory muscle use, + plerual rub (Wearing 6L O2 via NC , +coarse breath sounds throughout, +expiratory wheeze, +nonproductive cough. ) , + pertinent finding Cardiovascular: regular rate, rhythm, no murmur, + tachycardia Abdomen: non tender, soft, + pertinent finding (distended abdomen, + hypoactive bowel sounds. ) Extremities: non-tender, no calf tenderness, + pedal edema (LLE 2+ pitting in foot and ankle. RLE with 1+ edema, nonpitting. ) Neurologic/Psychiatric: alert, oriented x 3, + motor weakness (RLE 4/5, LLE 5/5 , upper extremities bilaterally are 5/5 and equal. ) Skin: normal color, warm/dry (Teresita Camilo, PA-C) Laboratory Results Last 24 Hours Test 08/07/16 14:25 08/07/16 15:00 08/07/16 15:05 08/07/16 15:10 Influenza Type A (RT-PCR) Neg for Influ A Influenza Type A Antigen Neg for Influ A Influenza Type B Antigen Neg for Influ B Influenza Type B (RT-PCR) Neg for Influ B Procalcitonin 0.62 ng/mL Bedside Hemoglobin 10.2 g/dl Bedside Hematocrit 30 % Bedside Sodium 131 mEq/L Bedside Potassium 4.2 mEq/L Bedside Chloride 97 mEq/L Bedside Total CO2 24 mEq/l Anion Gap 15.0 mmol/L 11.0 mmol/L Bedside Blood Urea Nitrogen 17 mg/dl Bedside Creatinine 0.8 mg/dl Bedside Glucose (other) 387 mg/dl Bedside Ionized Calcium (Ivan) 1.12 mmol/l White Blood Count 23.08 K/uL Red Blood Count 3.45 M/uL Hemoglobin 10.0 g/dL Hematocrit 29.7 % Mean Corpuscular Volume 86.1 fL Mean Corpuscular Hemoglobin 29.0 pg Mean Corpuscular Hemoglobin Concent 33.7 g/dl Platelet Count 78 K/uL Mean Platelet Volume 8.8 fL Neutrophils (%) (Auto) 93.1 % Lymphocytes (%) (Auto) 3.7 % Monocytes (%) (Auto) 2.1 % Eosinophils (%) (Auto) 0.0 % Basophils (%) (Auto) 0.0 % Neutrophils # (Auto) 21.47 K/uL Lymphocytes # (Auto) 0.86 K/uL Monocytes # (Auto) 0.49 K/uL Eosinophils # (Auto) 0.00 K/uL Basophils # (Auto) 0.01 K/uL RDW Standard Deviation 47.0 fL RDW Coefficient of Variation 15.2 % Immature Granulocyte % (Auto) 1.1 % Immature Granulocyte # (Auto) 0.25 K/uL Nucleated RBC Absolute Count (auto) 0.11 K/uL Nucleated Red Blood Cells % 0.5 % Tear Drop Cells 1+ Prothrombin Time 37.4 SECONDS Prothromb Time International Ratio 3.3 Activated Partial Thromboplast Time 38.1 SECONDS Partial Thromboplastin Ratio 1.5 Sodium Level 136 mmol/L Potassium Level 4.2 mmol/L Chloride Level 99 mmol/L Carbon Dioxide Level 26 mmol/L Blood Urea Nitrogen 18 mg/dl Creatinine 1.10 mg/dl Est Creatinine Clear Calc Drug Dose 56.1 ml/min Estimated GFR () 87.1 Estimated GFR (Non- 75.2 BUN/Creatinine Ratio 16.2 Random Glucose 368 mg/dl Estimated Average Glucose 189 mg/dl Hemoglobin A1c 8.2 % Calcium Level 8.0 mg/dl Total Bilirubin 0.3 mg/dl Aspartate Amino Transf (AST/SGOT) 24 U/L Alanine Aminotransferase (ALT/SGPT) 27 U/L Alkaline Phosphatase 109 U/L Total Creatine Kinase 72 U/L Creatine Kinase MB 2.5 ng/ml Creatine Kinase MB Ratio 3.5 Troponin I 1.620 ng/ml Total Protein 5.6 gm/dl Albumin 2.3 gm/dl Globulin 3.3 gm/dl Albumin/Globulin Ratio 0.7 Beta-Hydroxybutyric Acid 0.95 mg/dL Test 08/07/16 16:00 08/07/16 17:32 08/07/16 19:17 08/07/16 22:05 Urine Color YELLOW Urine Appearance CLEAR Urine pH 5.5 Urine Specific [place] 1.021 Urine Protein 1+ Urine Glucose (UA) 3+ Urine Ketones NEG Urine Occult Blood TRACE Urine Nitrite NEG Urine Bilirubin NEG Urine Urobilinogen NEG Urine Leukocyte Esterase NEG Urine WBC (Auto) 0 /hpf Urine RBC (Auto) 0-4 /hpf Urine Hyaline Casts (Auto) 0 /lpf Urine Epithelial Cells (Auto) 0-5 /lpf Urine Bacteria (Auto) NEG Lactic Acid Level 1.9 mmol/L Bedside Glucose 328 mg/dl Troponin I 1.500 ng/ml Test 08/08/16 06:07 White Blood Count 19.52 K/uL Red Blood Count 3.50 M/uL Hemoglobin 10.2 g/dL Hematocrit 30.7 % Mean Corpuscular Volume 87.7 fL Mean Corpuscular Hemoglobin 29.1 pg Mean Corpuscular Hemoglobin Concent 33.2 g/dl Platelet Count 82 K/uL Mean Platelet Volume 10.0 fL Neutrophils (%) (Auto) 92.6 % Lymphocytes (%) (Auto) 1.5 % Monocytes (%) (Auto) 5.1 % Eosinophils (%) (Auto) 0.0 % Basophils (%) (Auto) 0.1 % Neutrophils # (Auto) 18.07 K/uL Lymphocytes # (Auto) 0.29 K/uL Monocytes # (Auto) 1.00 K/uL Eosinophils # (Auto) 0.00 K/uL Basophils # (Auto) 0.02 K/uL RDW Standard Deviation 49.9 fL RDW Coefficient of Variation 15.6 % Immature Granulocyte % (Auto) 0.7 % Immature Granulocyte # (Auto) 0.14 K/uL Nucleated RBC Absolute Count (auto) 0.09 K/uL Nucleated Red Blood Cells % 0.5 % Polychromasia 1+ Prothrombin Time 23.2 SECONDS Prothromb Time International Ratio 2.1 Sodium Level 137 mmol/L Potassium Level 4.2 mmol/L Chloride Level 104 mmol/L Carbon Dioxide Level 26 mmol/L Anion Gap 7.0 mmol/L Blood Urea Nitrogen 16 mg/dl Creatinine 0.84 mg/dl Est Creatinine Clear Calc Drug Dose 77.7 ml/min Estimated GFR () 114.2 Estimated GFR (Non- 98.6 BUN/Creatinine Ratio 19.2 Random Glucose 293 mg/dl Calcium Level 8.4 mg/dl Total Bilirubin 0.3 mg/dl Aspartate Amino Transf (AST/SGOT) 15 U/L Alanine Aminotransferase (ALT/SGPT) 24 U/L Alkaline Phosphatase 109 U/L Troponin I 1.290 ng/ml Total Protein 6.0 gm/dl Albumin 2.2 gm/dl Globulin 3.8 gm/dl Albumin/Globulin Ratio 0.6 (Teresita Camilo, PA-C) Assessment and Plan 56 yo M w/ PMHx of known NSCLC, stage IV with mets to the brain, s/p 6 cycles taxol in 2015 and s/p steriotactic radiation for the brain mets in Feb 2016, MCA infarct and PE who presents with with sob and hemoptysis for past 3 days Acute on chronic resp failure likely multifactorial from extensive PE, increasing tumor burden and ?PNA Hemoptysis - WBC of 23.08 trended downward to 19.52 - started on rocephin, levaquin and vancomycin -> now switched to cefepime and vanc - Obtain sputum cx if possible, blood cx pending - Hemoptysis from increasing PE and tumor burden.- Consider IVC filter, possible that the patient would not benefit from a procedure like this, since he has an unfortunate prognosis - Continue to hold coumadin, INR was supratherapeutic at time of admission - Hgb = 10.2, stable compared to outpatient records. - INR = 2.1, decreased from 3.3 NSCLC w/ mets to brain s/p chemotherapy and steriostatic radiation to brain - Heme/onc on board- appreciate recommendations, radiation therapy has been consult. - o2 per nursing protocol - Continue nivolumab (1st dose 08/05/16), next dose being in about 2 weeks - Radiation therapy consulted Left ankle pain x 3 weeks - Xray of the ankle shows no acute fracture. + swelling and pain - will do conservative management for now with elevation, analgesia, and ice Elevated troponin - likely demand ischemia from PE and right heart strain - no EKG changes - trended downwards from 1.62 --> 1.5 --> 1.26 Hx of distal MCA infarct 05/2016, possibly secondary to emboli of an unknown source - Cont atorvastatin 40 mg daily DVT ppx: Teds, SCDs, no chemical anticoagulation as this is clearly contraindicated. CODE STATUS: FULL CODE Disposition: Patient prognosis is grim, oncology has given 2-3 months of life left at this time. [facility] discharge. (Teresita Camilo, PA-C) I agree with PA assessment and plan and have seen and examined pt myself Pt doesnt understand gravity of sickness Agree with Palliative care consult Poor prognosis Worsening PE and tumor burden Onc consulted, appreciate recs Lungs : Dec BS B/L, INR still therapeutic (Fred Mars D.OCoty)
[2016-08-08] MEDS: DEXAMETHASONE 4 MG TAB PO SCH ×2 (08:01→20:42)
[2016-08-08] MEDS: PANTOprazole SOD 40 MG TAB PO SCH (08:01)
[2016-08-08] MEDS: ACETAMINOPHEN 325 MG TAB PO SCH ×3 (08:03→20:42)
--- NOTE | 2016-08-08 08:22 | Oncology Consultation ---
Oncology/Heme Consultation Date of Consultation: Aug 08, 2016. Attending Physician: Fred Mars D.O. Reason for Consultation: Pulmonary emboli and DVT while on Coumadin Progressing non-small cell lung carcinoma WIRE BENDER HAND metastasis History of Present Illness Mr. Yu is a 56-year-old incarcerated gentleman that has been treated through this clinic for non-small cell lung carcinoma. This diagnosis was first made in November 2014. It was made up a transbronchial aspirate. The patient was unwilling to have further tissue sampled at that time and subsequently biomarker studies are not available. He has been treated first with radiation therapy with extensive disease in his lung. At that time he refused chemotherapy. He has subsequently received chemotherapy with progression of disease. He has been on Coumadin for PE since at least May of this year. He has reviewed with me that he has had blood in his sputum for the past few days. He's had increasing shortness of breath and painful lower extremities particularly the left lower extremity. As mentioned He has in the past received systemic chemotherapy as well as radiation therapy and now is on a salvage attempt with a checkpoint inhibitor. An MRI of the brain has also suggested increasing brain metastasis. His been no definite neurologic deficit. On August 05 he started his first dose of a checkpoint inhibitor (Opdivo). Again he is now admitted with worsening shortness of breath and DVT while on therapeutic doses of Coumadin. Past Medical/Surgical History Medical Problems: (1) Dizziness Status: Acute (2) Elevated troponin Status: Acute (3) Hypoxia Status: Acute (4) Metastatic disease Status: Acute (5) Metastatic lung cancer (metastasis from lung to other site) Status: Acute (6) Pneumonia Status: Acute (7) Stroke Status: Acute (8) Syncope Status: Acute (9) Vasogenic brain edema Status: Acute Family History Diabetes mellitus FATHER Social History Smoking Status: Former Smoker Drug Use: none Marital Status: single Housing Status: other Occupation Status: other Allergies Coded Allergies: Talc (Verified Allergy, Severe, SOB - Baby Powder, 06/10/16) Nafcillin (Verified Allergy, Unknown, sob,n/v, 08/07/16) Penicillins (Verified Allergy, Unknown, SHORTNESS OF BREATH, 08/07/16) Home Medications Scheduled Acetaminophen (Tylenol), 650 MG PO TID Atorvastatin (Lipitor), 40 MG PO HS Dexamethasone (Decadron), 6 MG PO BID Nutritional Supplements (Boost), 1 BTL PO PC Omeprazole (Prilosec), 40 MG PO DAILY Oxygen (Oxygen), 2 LITERS NA UD Triamcinolone Acet (Triamcinolone Acetonide), 1 APPLN TOP TID Warfarin Sod (Jantoven), 1.5 MG PO DAILY Scheduled PRN Albuterol Hfa (Ventolin Hfa), 2 PUFFS INH QID PRN for Shortness of Breath Benzonatate (Tessalon Perles), 100 MG PO TID PRN for Cough Ipratropium-Albuterol (Duoneb), 1 TREATMENT INH QID PRN for Shortness of Breath Ondansetron Hcl (Zofran), 8 MG PO BID PRN for Nausea or Vomiting Tramadol (Ultram), 50 MG PO BID PRN for Pain Current Inpatient Medications Current Inpatient Medications Medications (Trade) Dose Ordered Sig/Jevon Route Start Time Stop Time Status Last Admin Dose Admin Ioversol 111 ml 111 ml UD PRN IV 08/07/16 14:30 08/11/16 14:29 Sodium Chloride (Nss 1000ml) 1,000 ml @ 100 mls/hr Q10H IV 08/07/16 17:10 09/06/16 17:09 08/08/16 03:26 100 MLS/HR Acetaminophen (Tylenol Tab) 650 mg Q4H PRN PO 08/07/16 17:15 09/06/16 17:14 Ondansetron HCl (Zofran Inj) 4 mg Q6H PRN IV 08/07/16 17:15 09/06/16 17:14 Acetaminophen (Tylenol Tab) 650 mg TID PO 08/07/16 21:00 09/06/16 20:59 08/08/16 08:03 650 MG Albuterol (Ventolin Hfa Inhaler) 2 puffs QID PRN INH 08/07/16 17:15 09/06/16 17:14 Atorvastatin Calcium (Lipitor Tab) 40 mg HS PO 08/07/16 21:00 09/06/16 20:59 08/07/16 21:24 40 MG Benzonatate (Tessalon Perles Cap) 100 mg TID PRN PO 08/07/16 17:15 09/06/16 17:14 Dexamethasone (Decadron Tab) 6 mg BID PO 08/07/16 21:00 09/06/16 20:59 08/08/16 08:01 6 MG Enteral Nutritional Formula (Boost) 1 can PC PO 08/07/16 18:00 09/06/16 17:59 Ondansetron HCl (Zofran Tab) 8 mg BID PRN PO 08/07/16 17:15 09/06/16 17:14 Tramadol HCl (Ultram Tab) 50 mg BID PRN PO 08/07/16 17:15 09/06/16 17:14 Pantoprazole Sodium (Protonix Tab) 40 mg DAILY PO 08/08/16 09:00 09/07/16 08:59 08/08/16 08:01 40 MG Albuterol/ Ipratropium 3 ml 3 ml QIDR INH 08/07/16 20:00 09/06/16 19:59 08/08/16 06:53 3 ML Levofloxacin 750 mg/Prmx 150 ml @ 100 mls/hr Q24H IV 08/07/16 20:00 08/14/16 19:59 08/07/16 20:39 100 MLS/HR Vancomycin HCl/ Sodium Chloride (Vancomycin Inj/ Nss 250ml) 265 ml @ 125 mls/hr Q12H IV 08/08/16 00:00 08/15/16 00:00 08/08/16 00:00 125 MLS/HR Vancomycin HCl 1 ea 1 ea UD PRN N/A 08/07/16 19:30 09/06/16 19:29 Cefepime HCl/ Dextrose (Maxipime IV/D5 100ml) 112.5 ml @ 225 mls/hr Q12H IV 08/08/16 04:00 08/15/16 03:59 08/08/16 03:53 225 MLS/HR Cefepime HCl (Consult) 1 ea UD PRN N/A 08/07/16 19:30 09/06/16 19:29 Review of Systems Constitutional: Positive for weight loss and his had hemoptysis Eyes: Negative for event change of vision ENT: Negative for epistaxis, nasal discharge, sore throat, or deafness Cardiovascular: Negative for chest pain, palpitations, dizziness, diaphoresis Respiratory: Positive for worsening shortness of breath and hemoptysis Gastrointestinal: Negative for diarrhea, hematemesis, melena, nausea, vomiting , or dyspepsia Integumentary (skin): Negative for rash or jaundice discoloration Genitourinary: Negative for urinary frequency, hematuria, or dysuria Neurological: Negative for weakness, seizure activity, headache, or dizziness Lymphatic/Hematologic: Negative for petechiae, bleeding or new adenopathy Musculoskeletal: Negative for new joint or back pain Allergic/Immunologic: Negative for unusual rash or pruritis. Physical Exam Date Time Temp Pulse Resp B/P Pulse Ox O2 Delivery O2 Flow Rate FiO2 08/08/16 07:30 36.5 104 20 124/81 99 BiPAP 08/08/16 06:53 103 24 98 BiPAP/CPAP 50 08/08/16 06:53 103 98 50 08/08/16 04:00 BiPAP 50 08/08/16 03:41 36.4 120 25 124/87 96 BiPAP 08/08/16 03:40 121 96 50 08/08/16 00:02 BiPAP 50 08/07/16 23:41 36.4 119 26 127/81 94 BiPAP 08/07/16 19:47 127 91 50 08/07/16 19:46 121 22 86 Mask 7.0 08/07/16 19:31 36.6 128 30 154/93 95 BiPAP 08/07/16 19:03 115 99 08/07/16 16:59 120 20 126/87 96 BiPAP 08/07/16 15:55 112 26 130/93 96 Room Air 08/07/16 14:43 120 99 08/07/16 14:42 120 21 99 BiPAP/CPAP 50 08/07/16 14:12 95 Non-Rebreather 15.0 08/07/16 14:10 95 Non-Rebreather 15.0 08/07/16 14:03 130 08/07/16 13:56 36.4 125 24 149/97 94 Non-Rebreather 15.0 Constitutional: vitals are stable. Thin black gentleman Eyes: Eyes are JESSY EOMI without conjuctival erythema or icterus. ENT: External examination was negative for masses. Neck: Negative for masses or palpable thyromegaly Respiratory: Lung sounds were generally decreased bilaterally Cardiovascular: Heart was RRR without significant murmur, gallops aoe rubs Gastrointestinal: No palpable hepatic or splenomegaly. The abdomen was soft with normal bowel sounds. Lymphatic system: there was no palpable peripheral lymphadenopathy Musculoskeletal System: The musculoskeletal system seemed concordant with age. Skin: The skin was negative for jaundice. Neurologic exam: The exam was negative for any focal findings. Deep tendon reflexes were equal and symmetrical. Psychiatric exam: Was essentially negative with normal mood and effect. Extremities: Left leg is mildly swollen and tender Laboratory Results Last 24 Hours Test 08/07/16 14:25 08/07/16 15:00 08/07/16 15:05 08/07/16 15:10 Influenza Type A (RT-PCR) Neg for Influ A Influenza Type A Antigen Neg for Influ A Influenza Type B Antigen Neg for Influ B Influenza Type B (RT-PCR) Neg for Influ B Procalcitonin 0.62 ng/mL Bedside Hemoglobin 10.2 g/dl Bedside Hematocrit 30 % Bedside Sodium 131 mEq/L Bedside Potassium 4.2 mEq/L Bedside Chloride 97 mEq/L Bedside Total CO2 24 mEq/l Anion Gap 15.0 mmol/L 11.0 mmol/L Bedside Blood Urea Nitrogen 17 mg/dl Bedside Creatinine 0.8 mg/dl Bedside Glucose (other) 387 mg/dl Bedside Ionized Calcium (Ivan) 1.12 mmol/l White Blood Count 23.08 K/uL Red Blood Count 3.45 M/uL Hemoglobin 10.0 g/dL Hematocrit 29.7 % Mean Corpuscular Volume 86.1 fL Mean Corpuscular Hemoglobin 29.0 pg Mean Corpuscular Hemoglobin Concent 33.7 g/dl Platelet Count 78 K/uL Mean Platelet Volume 8.8 fL Neutrophils (%) (Auto) 93.1 % Lymphocytes (%) (Auto) 3.7 % Monocytes (%) (Auto) 2.1 % Eosinophils (%) (Auto) 0.0 % Basophils (%) (Auto) 0.0 % Neutrophils # (Auto) 21.47 K/uL Lymphocytes # (Auto) 0.86 K/uL Monocytes # (Auto) 0.49 K/uL Eosinophils # (Auto) 0.00 K/uL Basophils # (Auto) 0.01 K/uL RDW Standard Deviation 47.0 fL RDW Coefficient of Variation 15.2 % Immature Granulocyte % (Auto) 1.1 % Immature Granulocyte # (Auto) 0.25 K/uL Nucleated RBC Absolute Count (auto) 0.11 K/uL Nucleated Red Blood Cells % 0.5 % Tear Drop Cells 1+ Prothrombin Time 37.4 SECONDS Prothromb Time International Ratio 3.3 Activated Partial Thromboplast Time 38.1 SECONDS Partial Thromboplastin Ratio 1.5 Sodium Level 136 mmol/L Potassium Level 4.2 mmol/L Chloride Level 99 mmol/L Carbon Dioxide Level 26 mmol/L Blood Urea Nitrogen 18 mg/dl Creatinine 1.10 mg/dl Est Creatinine Clear Calc Drug Dose 56.1 ml/min Estimated GFR () 87.1 Estimated GFR (Non- 75.2 BUN/Creatinine Ratio 16.2 Random Glucose 368 mg/dl Estimated Average Glucose 189 mg/dl Hemoglobin A1c 8.2 % Calcium Level 8.0 mg/dl Total Bilirubin 0.3 mg/dl Aspartate Amino Transf (AST/SGOT) 24 U/L Alanine Aminotransferase (ALT/SGPT) 27 U/L Alkaline Phosphatase 109 U/L Total Creatine Kinase 72 U/L Creatine Kinase MB 2.5 ng/ml Creatine Kinase MB Ratio 3.5 Troponin I 1.620 ng/ml Total Protein 5.6 gm/dl Albumin 2.3 gm/dl Globulin 3.3 gm/dl Albumin/Globulin Ratio 0.7 Beta-Hydroxybutyric Acid 0.95 mg/dL Test 08/07/16 16:00 08/07/16 17:32 08/07/16 19:17 08/07/16 22:05 Urine Color YELLOW Urine Appearance CLEAR Urine pH 5.5 Urine Specific [place] 1.021 Urine Protein 1+ Urine Glucose (UA) 3+ Urine Ketones NEG Urine Occult Blood TRACE Urine Nitrite NEG Urine Bilirubin NEG Urine Urobilinogen NEG Urine Leukocyte Esterase NEG Urine WBC (Auto) 0 /hpf Urine RBC (Auto) 0-4 /hpf Urine Hyaline Casts (Auto) 0 /lpf Urine Epithelial Cells (Auto) 0-5 /lpf Urine Bacteria (Auto) NEG Lactic Acid Level 1.9 mmol/L Bedside Glucose 328 mg/dl Troponin I 1.500 ng/ml Test 08/08/16 06:07 White Blood Count 19.52 K/uL Red Blood Count 3.50 M/uL Hemoglobin 10.2 g/dL Hematocrit 30.7 % Mean Corpuscular Volume 87.7 fL Mean Corpuscular Hemoglobin 29.1 pg Mean Corpuscular Hemoglobin Concent 33.2 g/dl Platelet Count 82 K/uL Mean Platelet Volume 10.0 fL Neutrophils (%) (Auto) 92.6 % Lymphocytes (%) (Auto) 1.5 % Monocytes (%) (Auto) 5.1 % Eosinophils (%) (Auto) 0.0 % Basophils (%) (Auto) 0.1 % Neutrophils # (Auto) 18.07 K/uL Lymphocytes # (Auto) 0.29 K/uL Monocytes # (Auto) 1.00 K/uL Eosinophils # (Auto) 0.00 K/uL Basophils # (Auto) 0.02 K/uL RDW Standard Deviation 49.9 fL RDW Coefficient of Variation 15.6 % Immature Granulocyte % (Auto) 0.7 % Immature Granulocyte # (Auto) 0.14 K/uL Nucleated RBC Absolute Count (auto) 0.09 K/uL Nucleated Red Blood Cells % 0.5 % Polychromasia 1+ Prothrombin Time 23.2 SECONDS Prothromb Time International Ratio 2.1 Sodium Level 137 mmol/L Potassium Level 4.2 mmol/L Chloride Level 104 mmol/L Carbon Dioxide Level 26 mmol/L Anion Gap 7.0 mmol/L Blood Urea Nitrogen 16 mg/dl Creatinine 0.84 mg/dl Est Creatinine Clear Calc Drug Dose 77.7 ml/min Estimated GFR () 114.2 Estimated GFR (Non- 98.6 BUN/Creatinine Ratio 19.2 Random Glucose 293 mg/dl Calcium Level 8.4 mg/dl Total Bilirubin 0.3 mg/dl Aspartate Amino Transf (AST/SGOT) 15 U/L Alanine Aminotransferase (ALT/SGPT) 24 U/L Alkaline Phosphatase 109 U/L Troponin I 1.290 ng/ml Total Protein 6.0 gm/dl Albumin 2.2 gm/dl Globulin 3.8 gm/dl Albumin/Globulin Ratio 0.6 Assessment & Plan Progressive non-small cell lung carcinoma. He has recently started treatment with nivolumab and received his first dose on the . Now while on therapeutic doses of Coumadin he has extensive DVT as well as PE. In addition to being Coumadin resistant he is also had hemoptysis. I would consult vascular surgery for umbrella placement. He has had known brain metastasis in the past but it's unclear as to whether radiation therapy has been consulted or addressed this particular issue. I will consult radiation therapy for this. Finally I have reviewed with Mr. Yu the unfortunate reality of this tumor being incurable. He has been well aware of this. I reviewed as best I could what the umbrella or IVC filter is for. He has limited insight. Nevertheless he understands that again survival is short. His performance status is deteriorating fairly rapidly. I would suspect survival to be based measured in 2 -3 months. We will nevertheless continue the Opdivo with his next dose being in about 2 weeks.
[2016-08-08] MEDS: BOOST VANILLA PO SCH ×4 (09:02→12:00)
--- NOTE | 2016-08-08 12:09 | Radiation Oncology Progress Nt ---
Radiation Oncology Progress Nt Date of Service Date of Service: Aug 08, 2016. Subjective Pt evaluation today including: conversation w/ patient, conversation w/ storage management consultant (1) Mal Murphy Bronch/Lung Nos Location: brain metastasis Onset Date: 12/10/2014 Stage: IV Permanent Comment: Weight loss and shortness of breath Abnormal chest x-ray with CT showing a right upper lobe mass Abnormal PET/CT Status post bronchoscopy and biopsy 12/10/2014 showing non-small cell lung CA Admission for postobstructive pneumonia Initially to have debilitated for combined therapy and patient declined chemotherapy Status post completion of radiation therapy 03/02/2015 received 6660 cGy Systemic chemotherapy Syncopal episode and finding of brain metastasis Status post completion of radiation therapy utilizing stereotactic therapy completed 03/10/2016 received 2100 cGy Current on Opdivo underneath the supervision of Dr. Richard Baker Mr. Yu is a 56-year-old gentleman who is well-known to our service for previous radiation therapy. The patient is currently measured to the hospital due to respiratory issues secondary to an extensive pulmonary embolus an overall failure to thrive. We were asked to evaluate the patient to comment on his metastatic disease and if there is any role for further necessary radiation therapy. Review of Systems Constitutional: + weakness, + weight loss Eyes: No diplopia, No discharge, No eye pain, No problem reported, No redness, No see HPI, No worsening of vision Neurologic: No balance problems, No memory loss, No numbness/tingling, No paralysis, No problem reported, No see HPI, No vertigo, No weakness Objective Vital Signs Date Time Temp Pulse Resp B/P Pulse Ox O2 Delivery O2 Flow Rate FiO2 08/08/16 08:00 90 Nasal Cannula 6.0 08/08/16 07:30 36.5 104 20 124/81 99 BiPAP 08/08/16 06:53 103 24 98 BiPAP/CPAP 50 08/08/16 06:53 103 98 50 08/08/16 04:00 BiPAP 50 08/08/16 03:41 36.4 120 25 124/87 96 BiPAP 08/08/16 03:40 121 96 50 08/08/16 00:02 BiPAP 50 08/07/16 23:41 36.4 119 26 127/81 94 BiPAP 08/07/16 19:47 127 91 50 08/07/16 19:46 121 22 86 Mask 7.0 08/07/16 19:31 36.6 128 30 154/93 95 BiPAP 08/07/16 19:03 115 99 08/07/16 16:59 120 20 126/87 96 BiPAP 08/07/16 15:55 112 26 130/93 96 Room Air 08/07/16 14:43 120 99 08/07/16 14:42 120 21 99 BiPAP/CPAP 50 08/07/16 14:12 95 Non-Rebreather 15.0 08/07/16 14:10 95 Non-Rebreather 15.0 08/07/16 14:03 130 08/07/16 13:56 36.4 125 24 149/97 94 Non-Rebreather 15.0 Physical Exam General Appearance: + moderate distress, + cachetic Eyes: normal inspection ENT: normal ENT inspection Neurologic/Psychiatric: oxyacetylene cutter II-XII nml as tested, no motor/sensory deficits, alert, normal mood/affect, oriented x 3 Assessment and Plan Mr. 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 The patient has been seen by Dr. Baker from medical oncology who is currently treating the patient with Opdivo. The patient has previously had radiation therapy to the chest and brain. We were asked to evaluate the patient for consideration of any further radiation therapy to the brain. I have reviewed the previous imaging studies from May 2016 and July 2016 and at this point there is no evidence of new or progressive disease intracranially. The patient did have one large left frontal lobe lesion that was previously treated with radiation therapy in February 2016. Given there has been no interval changes, I would not recommend any radiation therapy to the brain. No further role for radiation therapy at this point. The patient will continue with systemic therapy underneath the supervision of Dr. Richard Baker. If there is any concern about metastatic disease to the brain, a MRI of the brain should be ordered. Please call our department with any further questions or concerns.
[2016-08-08] MEDS: VANCOMYCIN INJ 750 MG in SODIUM CHLORIDE 0.9% 250ML 250 ML IV SCH ×4 (12:36→23:57)
[2016-08-08] MEDS: BOOST GLUCOSE CONTROL PO SCH (17:09)
[2016-08-08] MEDS: ATORVASTATIN 40 MG TAB PO SCH (20:42)
[2016-08-08] MEDS: LEVOFLOXACIN / D5W 750 MG in PREMIXED IN D5W 150 ML IV SCH (20:42)
[2016-08-09] VITALS (18 sets, daily range): BP systolic 123–156; BP diastolic 72–92; PULSE 98–125; TEMP 36.5–37.2; O2SAT 88–96; BMI 20.9
[2016-08-09] MEDS: ALBUT/IPRATROP 3MG/0.5MG NEB 3 ML VIAL INH SCH ×5 (03:24→19:37)
[2016-08-09] MEDS: CEFEPIME IV 2000 MG in DEXTROSE 5% 100ML IV SCH ×2 (04:20→16:00)
[2016-08-09 06:37] LABS: HEMATOCRIT 28.7 % (42-52); MEAN CELL VOLUME 88.6 fL (80-100); MEAN CORPUSCULAR HEMOGLOBIN 28.4 pg (25-34); MEAN CORPUSCULAR HGB CONC 32.1 g/dl (32-36); RED BLOOD COUNT 3.24 M/uL (4.7-6.1)
[2016-08-09 06:46] LABS: INR 1.2 (0.9-1.1); PROTHROMBIN TIME (PATIENT) 13.4 SECONDS (9.0-12.0)
[2016-08-09 07:15] LABS: ALB/GLOB RATIO 0.5 (0.9-2); BUN/CREATININE RATIO 24.5 (10-20); CALCIUM 9.1 mg/dl (8.5-10.1); CREATININE 0.91 mg/dl (0.60-1.40)
[2016-08-09] MEDS: BOOST GLUCOSE CONTROL PO SCH ×3 (08:00→17:29)
[2016-08-09 08:04] LABS: MEAN PLATELET VOLUME 10.4 fL (7.4-10.4); PLATELET COUNT 86 K/uL (130-400)
[2016-08-09 08:05] LABS: COMPLETE YES; IG% 0.9 %; LYMPH % 2.1 %; LYMPH ABS # 0.35 K/uL (1.2-3.4); MONO % 3.2 %; NEUT % 93.8 %
[2016-08-09] MEDS ORDERED: GLUCOSE 40% GEL 15 GM TUBE PO PRN (09:30)
[2016-08-09] MEDS ORDERED: GLUCOSE 10 TABS/TUBE PO PRN (09:30)
[2016-08-09] MEDS ORDERED: INSULIN GLARGINE SOLOSTAR 100 UNITS/ML 3 ML PEN SC SCH (09:30)
[2016-08-09] MEDS ORDERED: DEXTROSE 50% 50 ML SYR IV PRN (09:30)
[2016-08-09] MEDS ORDERED: GLUCAGON FOR INJ 1 MG VIAL SQ PRN (09:30)
[2016-08-09] MEDS: DEXAMETHASONE 4 MG TAB PO SCH ×2 (09:36→21:44)
[2016-08-09] MEDS: PANTOprazole SOD 40 MG TAB PO SCH (09:37)
[2016-08-09] MEDS: ACETAMINOPHEN 325 MG TAB PO SCH ×3 (09:38→21:45)
--- NOTE | 2016-08-09 09:41 | Surgery Consultation ---
Consultation Date of Service Aug 09, 2016. (Jeanne Hogan, SHANELLE) Chief Complaint DVT/PE, lung ca with brain mets (Jeanne Hogan, SHANELLE) History of Present Illness The patient is a 56 year old male with hx of non small cell lung ca, PE since 2016, seen in consultation today for opinion regarding IVC filter insertion. Pt began coumadin in 05/2016, was supratherupeutic INR at 3.3 and noted to have extensive acute DVT in BLE and worsened PE burden in lungs. AC stopped on admission. Also with brain mets. Pt admits JAIME, SOB, generalized fatigue/ malaise, mild pain in BLE. Had chest pain and SOB on admission, chest pain resolved. Denies RICKS, fever, chills, abd pain, N/V, rest pain, claudication, other complaints. (Jeanne Hogan, SHANELLE) Vitals Vital Signs Past 12 Hours Date Time Temp Pulse Resp B/P Pulse Ox O2 Delivery O2 Flow Rate FiO2 08/09/16 07:06 109 24 95 Venturi Mask 15.0 50 08/09/16 04:01 Venturi Mask 08/09/16 03:54 36.8 116 24 145/72 94 Diffusion Mask 08/09/16 03:24 116 26 96 Venturi Mask 15.0 50 08/09/16 00:00 36.8 114 24 135/86 93 Diffusion Mask 15.0 08/09/16 00:00 Venturi Mask (Jeanne Hogan, SHANELLE) Allergies Coded Allergies: Talc (Verified Allergy, Severe, SOB - Baby Powder, 06/10/16) Nafcillin (Verified Allergy, Unknown, sob,n/v, 08/07/16) Penicillins (Verified Allergy, Unknown, SHORTNESS OF BREATH, 08/07/16) Home Medications Scheduled Acetaminophen (Tylenol), 650 MG PO TID Atorvastatin (Lipitor), 40 MG PO HS Dexamethasone (Decadron), 6 MG PO BID Nutritional Supplements (Boost), 1 BTL PO PC Omeprazole (Prilosec), 40 MG PO DAILY Oxygen (Oxygen), 2 LITERS NA UD Triamcinolone Acet (Triamcinolone Acetonide), 1 APPLN TOP TID Warfarin Sod (Jantoven), 1.5 MG PO DAILY Scheduled PRN Albuterol Hfa (Ventolin Hfa), 2 PUFFS INH QID PRN for Shortness of Breath Benzonatate (Tessalon Perles), 100 MG PO TID PRN for Cough Ipratropium-Albuterol (Duoneb), 1 TREATMENT INH QID PRN for Shortness of Breath Ondansetron Hcl (Zofran), 8 MG PO BID PRN for Nausea or Vomiting Tramadol (Ultram), 50 MG PO BID PRN for Pain Problem List Medical Problems: (1) Chest pain (2) Malignant neoplasm of bronchus and lung, unspecified site (3) Metastatic cancer to brain (4) Pulmonary embolism (5) Solitary Pulmonary Nodule (Jeanne Hogan PA-C) Surgical / Medical History Hx Cardiac Surgery: No Hx Abdominal Surgery: No Hx Cancer Surgery: No Hx Thoracic Surgery: No Hx Orthopedic: Yes (finger) Hx Urinary Tract Surgery: No HX Other Surgery: Yes (tonsillectomy) Past Medical/Surgical History: Cancer, Heart Disease, Hypertension, CA, Pulmonary Emboli (Jeanne Hogan, SHANELLE) Family History Diabetes mellitus FATHER (Jeanne Hogan PA-C) Diabetes mellitus FATHER (Kahlil De Souza M.D.) Social History Smoking Status: Former Smoker Hx Tobacco Use In Past Year?: No Hx Alcohol Use - Type & Amnt: No Hx Substance Use -Type & Amnt: No (Jeanne Hogan, LAC) Review of Systems Constitutional: + malaise, No chills, No fever Skin: No change in color Eyes: No visual changes ENMT: No sore throat Respiratory: + JAIME, + cough, + orthopnea, + short of breath, No hemoptysis Cardiovascular: + edema, No chest pain, No chest pressure, No intermittent claudication, No palpitations, No syncope Gastrointestinal: No abdominal pain, No nausea, No vomiting Neurologic: + weakness, No dizziness, No headache, No lethargy (Jeanne Hogan, LAC) Physical Exam Constitutional: General Apperance: well-nourished, well-developed, cachectic Level of Distress: NAD, chronically ill Psychiatric: Mental Status: active & alert, normal mood, normal affect Orientation: oriented except where noted, to time, to place, to person Memory: recent memory normal, remote memory normal Head: normocephalic, atraumatic Eyes: EOM: EOMI ENMT: normal ENT inspection, hearing grossly normal Neck: supple, trachea midline Lungs: Respiratory effort: dyspneic Auscultation: no rales/crackles, decreased breath sounds Cardiovascular: Apical Impulse: not displaced Heart Auscultation: RRR, no gallops Peripheral Pulses: Pulses: full and equal, in all extremities except if noted Bruits: none appreciated Carotid Pulse: normal on the left, normal on the right Brachial Pulses: normal on the left, normal on the right Femoral Pulse: normal on the left, normal on the right Posterior Tibialis Pulse: decreased on the left, decreased on the right Dorsalis Pedis Pulse: decreased on the left, decreased on the right Abdomen: Bowel Sounds: normal Inspection & Palpation: soft, non-distended, no tenderness, guarding & rebound Musculoskeletal: normal strength (5/5 throughout), normal tone Extremities: Upper Right: no cyanosis, no edema, no varicosities Upper Left: no cyanosis, no edema, no varicosities Lower Right: no cyanosis, no varicosities, no palpable cord, edema Lower Left: no cyanosis, no varicosities, no palpable cord, edema Neurologic: Cranial Nerves: grossly intact Sensation: grossly intact (Jeanne Hogan, PA-C) Assessment and Plan ASSESSMENT and PLAN: Extensive DVT/PE, failed coumadin Lung ca with brain metastases Pt for IVC filter insertion this morning to prevent further PE burden. Pt aware this will not prolong his life expectancy in regards to his lung ca. Pt states he wishes everything to be done that can be done. Procedure, risks, benefits, and alternatives discussed with pt, he expresses understanding and agreement. (Jeanne Hogan, PA-C) Patient was seen, examined, and chart reviewed. Agree with exam and treatment plan of the Vascular PA. Patient for IVC filter today. I have discussed the risks options and benefits of the procedure with the patient. The patient understands the risks options and benefits and agrees to the procedure. (Kahlil De Souza M.D.)
[2016-08-09] MEDS ORDERED: FENTANYL CITRATE INJ 50 MCG/1 ML 2 ML VIAL ONE (10:37)
[2016-08-09] MEDS ORDERED: LIDOCAINE HCL 1% 20 ML VIAL INJ ONE (10:54)
[2016-08-09] MEDS: LANTUS PER UNIT CHARGE SQ SCH ×2 (10:56→10:59)
[2016-08-09] MEDS ORDERED: INSULIN ASPART 100 UNITS/ML 3 ML PEN SC SCH (11:00)
--- NOTE | 2016-08-09 11:17 | [facility] Post Operative Brief Note ---
Immediate Operative Summary Operative Date Aug 09, 2016. Pre-Operative Diagnosis Failed anticoagulation, DVT, PE Post-Operative Diagnosis Same Procedure(s) Performed Insertion of IVC filter, femoral approach Surgeon Nolvia Health Information Clerk Surgeon(s) Ring Estimated Blood Loss 0 Findings filter upright in infrarenal IVC, no cava clot Specimens none Anesthesia Local Complication(s) None Disposition
[2016-08-09] MEDS ORDERED: IODIXANOL (VISIPAQUE) 270 MG/ML 50ML XX ONE (11:18)
[2016-08-09] MEDS: VANCOMYCIN INJ 750 MG in SODIUM CHLORIDE 0.9% 250ML 250 ML IV SCH (12:14)
--- NOTE | 2016-08-09 12:14 | DIAGNOSTIC IMAGING REPORT ---
DATE OF PROCEDURE: 08/09/2016 PREOPERATIVE DIAGNOSIS: Massive deep venous thrombosis and pulmonary embolism in the setting of cancer and therapeutic INR. POSTOPERATIVE DIAGNOSIS: Same. PROCEDURES: 1. Ultrasound-guided access to right femoral vein. 2. Insertion of inferior vena cava Cook Celect filter. SURGEON: Kahlil De Souza MD OPTO MECHANICAL ENGINEER: Dr. Lucas Melgar. ANESTHESIA: Local anesthesia only. COMPLICATIONS: None. ESTIMATED BLOOD LOSS: 5 mL. INDICATIONS: This is a 56-year-old gentleman who has a known cancer with metastatic disease. He has undergone brain radiation. He had a previous DVT and was on Coumadin therapy. When he presented, he had increasing DVT in the left leg as well as pulmonary embolism. This was despite therapeutic INR. An IVC filter was recommended for prevention of life threatening pulmonary embolism. PROCEDURE IN DETAIL: The patient was brought to the endovascular suite and placed in supine position. Timeout was performed and all parties agreed to correct patient and procedure to be performed. Appropriate surgical prophylactic antibiotics were administered within 1 hour of the incision. The right groin was prepped and draped in a normal sterile fashion. Under ultrasound guidance, the right femoral vein was accessed on the first attempt. A wire was advanced through the access needle to the level of the inferior vena cava. A dilator was subsequently used, followed by the sheath. The IVC filter was brought onto the field, followed by the sheath. Venogram was then performed, which clearly identified both renal veins. The IVC filter was then brought onto the field. It was deployed in an infrarenal position. It had a good lie and did not tilt or kink. All sheaths, wires and catheters were removed. Pressure was held on the groin access site. The patient was transferred to recovery room in satisfactory condition. [facility]
[2016-08-09] MEDS ORDERED: NURSING VERBAL MED ORDER ONE (12:45)
[2016-08-09 13:06] LABS: BETA-HYDROXYBUTYRATE 1.04 mg/dL (0.2-2.81)
[2016-08-09] MEDS ORDERED: VANCOMYCIN TROUGH SCH (13:30)
--- NOTE | 2016-08-09 13:41 | Hospitalist Progress Note ---
Hospitalist Progress Note Date of Service Aug 09, 2016. (Teresita Camilo PA-C) Subjective Pt evaluation today including: conversation w/ patient, physical exam, chart review, lab review, review of studies, review of inpatient medication list Pain: Moderate, r leg Voiding: no voiding problems The patient was seen and examined this morning. Pt reports feeling ok, he is tired. Also reports feeling short of breath although is wearing HFNC. + cough which is productive with clear-white sputum. He denies hemoptysis today. He had IVC filter placed this morning which went well per his report. Constitutional: + fatigue Respiratory: + cough, + shortness of breath, + sputum Cardiovascular: No chest pain, No palpitations Abdomen: + problem reported (+gas), No nausea, No pain All Other Systems: Reviewed and Negative (other than per HPI) (Teresita Camilo PA-C) Objective Vital Signs Date Time Temp Pulse Resp B/P Pulse Ox O2 Delivery O2 Flow Rate FiO2 08/09/16 12:00 High Flow Oxygen 55 Venturi Mask 08/09/16 11:44 36.7 108 27 150/81 92 High Flow Oxygen 55 08/09/16 09:32 36.8 120 18 133/90 92 Venturi Mask 30 08/09/16 08:00 Venturi Mask 15.0 08/09/16 07:06 109 24 95 Venturi Mask 15.0 50 08/09/16 04:01 Venturi Mask 08/09/16 03:54 36.8 116 24 145/72 94 Diffusion Mask 08/09/16 03:24 116 26 96 Venturi Mask 15.0 50 08/09/16 00:00 36.8 114 24 135/86 93 Diffusion Mask 15.0 08/09/16 00:00 Venturi Mask 08/08/16 20:15 Venturi Mask 08/08/16 19:33 36.8 118 26 138/74 94 Mask 15.0 08/08/16 19:00 110 24 50 Venturi Mask 08/08/16 16:36 37.1 120 24 142/80 90 Mask 15.0 08/08/16 16:00 92 Venturi Mask 08/08/16 15:20 112 32 80 Nasal Cannula 5.0 (Filipowicz,Teresita G., PA-C) Physical Exam General Appearance: + thin, + pertinent finding (chronically ill ) Eyes: PERRL, EOMI ENT: hearing grossly normal, pharynx normal Neck: no adenopathy, no JVD Respiratory/Chest: + respiratory distress (wearing HFNC ), + pertinent finding (coarse breath sounds throughout, + expiratory and inspiratory wheeze, + cough with sputum production) Cardiovascular: regular rate, rhythm (some extra PVCs), + systolic murmur, + irregularly irregular Abdomen: normal bowel sounds, non tender, + distended Extremities: non-tender, + pedal edema (2+ pitting edema of the RLE, trace edema of the LLE., ) Neurologic/Psychiatric: alert, normal mood/affect, oriented x 3 Skin: normal color, warm/dry (Teresita Camilo, YOLIS-C) Laboratory Results Last 24 Hours Test 08/08/16 14:10 08/09/16 06:13 08/09/16 10:32 08/09/16 11:45 Troponin I 0.985 ng/ml White Blood Count 16.30 K/uL Red Blood Count 3.24 M/uL Hemoglobin 9.2 g/dL Hematocrit 28.7 % Mean Corpuscular Volume 88.6 fL Mean Corpuscular Hemoglobin 28.4 pg Mean Corpuscular Hemoglobin Concent 32.1 g/dl Platelet Count 86 K/uL Mean Platelet Volume 10.4 fL Neutrophils (%) (Auto) 93.8 % Lymphocytes (%) (Auto) 2.1 % Monocytes (%) (Auto) 3.2 % Eosinophils (%) (Auto) 0.0 % Basophils (%) (Auto) 0.0 % Neutrophils # (Auto) 15.29 K/uL Lymphocytes # (Auto) 0.35 K/uL Monocytes # (Auto) 0.52 K/uL Eosinophils # (Auto) 0.00 K/uL Basophils # (Auto) 0.00 K/uL RDW Standard Deviation 49.9 fL RDW Coefficient of Variation 15.4 % Immature Granulocyte % (Auto) 0.9 % Immature Granulocyte # (Auto) 0.14 K/uL Nucleated RBC Absolute Count (auto) 0.08 K/uL Nucleated Red Blood Cells % 0.5 % Prothrombin Time 13.4 SECONDS Prothromb Time International Ratio 1.2 Sodium Level 140 mmol/L Potassium Level 4.0 mmol/L Chloride Level 104 mmol/L Carbon Dioxide Level 27 mmol/L Anion Gap 9.0 mmol/L Blood Urea Nitrogen 22 mg/dl Creatinine 0.91 mg/dl Est Creatinine Clear Calc Drug Dose 71.7 ml/min Estimated GFR () 109.6 Estimated GFR (Non- 94.5 BUN/Creatinine Ratio 24.5 Random Glucose 423 mg/dl 632 mg/dl Calcium Level 9.1 mg/dl Total Bilirubin 0.3 mg/dl Aspartate Amino Transf (AST/SGOT) 11 U/L Alanine Aminotransferase (ALT/SGPT) 20 U/L Alkaline Phosphatase 117 U/L Total Protein 6.1 gm/dl Albumin 2.0 gm/dl Globulin 4.1 gm/dl Albumin/Globulin Ratio 0.5 Beta-Hydroxybutyric Acid 1.00 mg/dL 1.04 mg/dL Bedside Glucose > 600 mg/dl Vancomycin Level Trough 8.9 mcg/ml (Teresita Camilo, PA-C) Assessment and Plan 56 yo M w/ PMHx of known NSCLC, 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 - IVC filter was placed this morning by Dr. De Souza, pt tolerated the procedure well. With hx of hemoptysis pt will not need chemical anticoagulation. - Continue to hold coumadin, INR was supratherapeutic at time of admission - INR = 1.2 today. - Hgb = 9.2, this has dropped from 10.2 yesterday, likely dilutional as no complaints of further hemoptysis or other blood loss. NSCLC w/ mets to brain s/p chemotherapy and stereotactic radiation to brain - Heme/onc on board- appreciate recommendations, radiation therapy has been consult. - o2 per nursing protocol - Continue nivolumab (1st dose 08/05/16), next dose being in about 2 weeks - Radiation therapy consulted DM II - Hgb A1C= 8.2, glucoses have been elevated in the 400s-600s since admission - Restart Lantus 10 U BID - ISS with accuchecks ACHS Abdominal Distension - Last bowel movement was 2 days ago. Pt is likely swallowing air from being short of breath as well. He denies any acute abdominal complaints such as pain, nausea, vomiting, diarrhea. - Will order dulcolax and miralax scheduled to start today. Left ankle pain x 3 weeks - Xray of the ankle shows no acute fracture. + swelling and pain - will do conservative management for now with elevation, analgesia, and ice Elevated troponin - likely demand ischemia from PE and right heart strain - no EKG changes - trended downwards from 1.62 --> 1.5 --> 1.26 Hx of distal MCA infarct 05/2016, possibly secondary to emboli of an unknown source - Cont atorvastatin 40 mg daily DVT ppx: Teds, SCDs, no chemical anticoagulation as this is clearly contraindicated. CODE STATUS: FULL CODE Disposition: Return to [facility] when medically stable. Patient prognosis is grim, oncology has given 2-3 months of life left at this time. (Teresita Camilo, SHANELLE) Attending Attestation: Pt seen/examined, chart reviewed, care plan d/w Tyesha Camilo. I agree w/ the mathur components of her documentation. Fingerstick blood sugars have worsened throughout the day. I saw him late in the day, several hours post-op from IVC filter. He asked 2-3x's "did the umbrella (IVC filter) help my breathing?' When asked if he would want ICU care, ventilation, etc if he worsened tonight he stated yes multiple times. tachy hypoxic increased RR exam gen - ill appearing, tachypneic, ?slightly confused mouth - thrush - extensive neck - no JVD heart - tachy lungs - extensive crackles with poor air movement on right, wheezing b/l, tachypnea abd - distended labs INR 1.2 Cr 0.9 A/P: 1. acute/chronic hypoxic resp failure 2. extensive PEs with DVTs with recent coumadin failure 3. hemoptysis 2nd to stage 4 lung ca, PEs, etc 4. possible gram negative pneumonia 5. thrush 6. uncontrolled T2DM 7. poor insight into health problems and prognosis 8. encephalopathy? dilfucan IV for thrush ABG insulin drip protocol abx decadron as previous s/p IVC filter very, very poor prognosis appreciate vascular, heme/onc, palliative care consults, rad onc, etc Anthony GARCIA MD (Teofilo Garcia MD)
[2016-08-09] MEDS ORDERED: POLYETHYLENE (MIRALAX) 17 GM PACK PO PRN (13:45)
[2016-08-09] MEDS: BISACODYL 5 MG TABEC PO SCH ×2 (14:41→21:44)
--- NOTE | 2016-08-09 15:38 | Pharmacy Progress Note ---
Pharmacy Antibiotic Prog Note Date of Service: Aug 09, 2016. Subjective: The patient is currently receiving Vancomycin 750 mg IV every 12 hours. The patient is currently on day # 3 of IV therapy. Objective: Height (Feet): 5 Height (Inches): 4.00 Weight (Kilograms): 55.300 Levels: Item Value Date Time Vancomycin Level Trough 8.9 mcg/ml 08/09/16 1145 Lab Results (24hrs): Laboratory Tests Test 08/09/16 06:13 BUN/Creatinine Ratio 24.5 Blood Urea Nitrogen 22 mg/dl Creatinine 0.91 mg/dl White Blood Count 16.30 K/uL Red Blood Count 3.24 M/uL Hemoglobin 9.2 g/dL Hematocrit 28.7 % Mean Corpuscular Volume 88.6 fL Mean Corpuscular Hemoglobin 28.4 pg Mean Corpuscular Hemoglobin Concent 32.1 g/dl Platelet Count 86 K/uL Mean Platelet Volume 10.4 fL Neutrophils (%) (Auto) 93.8 % Lymphocytes (%) (Auto) 2.1 % Monocytes (%) (Auto) 3.2 % Eosinophils (%) (Auto) 0.0 % Basophils (%) (Auto) 0.0 % Neutrophils # (Auto) 15.29 K/uL Lymphocytes # (Auto) 0.35 K/uL Monocytes # (Auto) 0.52 K/uL Eosinophils # (Auto) 0.00 K/uL Basophils # (Auto) 0.00 K/uL Micro Results: Item Value Date Time MRSA DNA Surveillance Screen - Final Complete 08/07/16 1920 Nasal Specimen Negative for MRSA by DNA Probe Blood Culture - Preliminary Resulted 08/07/16 1510 Blood NO GROWTH TO DATE. Blood Culture - Preliminary Resulted 08/07/16 1500 Blood NO GROWTH TO DATE. Recent Pertinent Medications: Item Value Date Time Vancomycin HCl 267 ml @ 125 mls/hr 08/09/16 2000 850 mg/Sodium Q8H/IV Chloride Cefepime HCl 2000 112.5 ml @ 225 mls/hr 08/08/16 0400 mg/Dextrose Q12H/IV 08/09/16 0420 Levofloxacin 750 150 ml @ 100 mls/hr 08/07/16 2000 mg/Prmx Q24H/IV 08/08/162 Assessment & Plan: 56 yo M admitted with possible pneumonia/HCAP, continued on broad spectrum antibiotics: Vancomycin, Levaquin, Cefepime IV. Based on (-) MRSA swab, would considering discontinuing Vancomycin. Vancomycin * This drug level is: X Subtherapeutic * Change to 850 mg IV every 8 hours. * Goal trough level estimate: between 15 - 20 mcg/mL. * A trough level has been ordered for: 08/11/16 prior to the 0400 dose. Cefepime * 2 g IV every 8 hours Levaquin * 750 mg IV every 24 hours Pharmacy will continue to follow and will adjust dose/frequency as necessary. Thank you
[2016-08-09] MEDS ORDERED: DC ALL PREVIOUSLY ORDERED DIABETES MEDS ONE (15:45)
[2016-08-09] MEDS ORDERED: MODERATE STRESS LEVEL ONE (15:45)
[2016-08-09] MEDS ORDERED: INSULIN PROTOCOL GOAL RANGE ONE (15:45)
[2016-08-09] MEDS ORDERED: INSULIN IV INFUSION PROTOCOL SCH (16:00)
--- NOTE | 2016-08-09 16:23 | Palliative Care Consultation ---
Consultation Date of Consultation: Aug 09, 2016. Requesting Physician: Tyesha Camilo PA-C Attending Physician: Dr. Garcia, Tyesha Camilo PA-C Reason for Consultation: Goals of care History of Present Illness This 56 year old male patient presented to the ED from the half-way with increased shortness of breath and hemoptysis for 3 days. He has a history of non -small cell lung carcinoma, first dose of Opdivo was 08/05, s/p chemotherapy and radiation, extensive pulmonary emboli, and distal MCA infarct May 2016. He was admitted with respiratory failure- multifactorial due to PE, tumor burden, ? pneumonia. He is unable to be anticoagulated as it is contraindicated at this time, so he did undergo IVC filter placement two days ago. He remains short of breath even at rest, on high-flow nasal cannula at this time. Patient has been given a prognosis of 2-3 months per oncology, patient wishes to continue treatment no matter what. Given his extensive history, active lung cancer, and respiratory failure, the patient's full code status is concerning and has been broached with patient several times. Palliative care consulted to assist in establishing goals of care. I met wit the patient in room 206. He states that he has no pain at this time, only c/o SOB even at rest. He states his procedure went well today and is feeling "alright." We had a lengthy discussion about his medical conditions. I asked permission to talk about his prognosis and he stated yes. When we discussed the fact he likely only has 2-3 months or less to live, he stated, "I don't believe in prognosis, that's a delusions. Only the big man upstairs can tell me when it's my time to go." He states that his goal is to be at home with his family and grandchildren for his end of life, he is tired of being in the hospital. That lead into discussing code status and patient stated he still wanted intubation, CPR and any/all care necessary to keep him alive. We discussed this a little further, but patient got upset and didn't want to discuss any more. He said that if he was on a ventilator and could come off, he would want his family to make a decision for him and he has discussed this with them. He then suddenly had to urinate and asked if we could talk later. Past Medical/Surgical History Medical History: as in HPI Social History Smoking Status: Former Smoker History of Alcohol Use: No Drug Use: none Marital Status: single Occupation Status: other Review of Systems Constitutional: No chills, No fever Respiratory: + cough, + dyspnea at rest, + shortness of breath Cardiac: No chest pain, No edema Abdomen: No nausea, No pain, No vomiting Male : No problem reported Allergies Coded Allergies: Talc (Verified Allergy, Severe, SOB - Baby Powder, 06/10/16) Nafcillin (Verified Allergy, Unknown, sob,n/v, 08/07/16) Penicillins (Verified Allergy, Unknown, SHORTNESS OF BREATH, 08/07/16) Medications Current Inpatient Medications Medications (Trade) Dose Ordered Sig/Jevon Route Start Time Stop Time Status Last Admin Dose Admin Ioversol (Optiray 320) 111 ml UD PRN IV 08/07/16 14:30 08/11/16 14:29 Acetaminophen (Tylenol Tab) 650 mg Q4H PRN PO 08/07/16 17:15 09/06/16 17:14 Ondansetron HCl (Zofran Inj) 4 mg Q6H PRN IV 08/07/16 17:15 09/06/16 17:14 Acetaminophen (Tylenol Tab) 650 mg TID PO 08/07/16 21:00 09/06/16 20:59 08/09/16 14:40 650 MG Albuterol (Ventolin Hfa Inhaler) 2 puffs QID PRN INH 08/07/16 17:15 09/06/16 17:14 Atorvastatin Calcium (Lipitor Tab) 40 mg HS PO 08/07/16 21:00 09/06/16 20:59 08/08/16 20:42 40 MG Benzonatate (Tessalon Perles Cap) 100 mg TID PRN PO 08/07/16 17:15 09/06/16 17:14 Dexamethasone (Decadron Tab) 6 mg BID PO 08/07/16 21:00 09/06/16 20:59 08/09/16 09:36 6 MG Ondansetron HCl (Zofran Tab) 8 mg BID PRN PO 08/07/16 17:15 09/06/16 17:14 Tramadol HCl (Ultram Tab) 50 mg BID PRN PO 08/07/16 17:15 09/06/16 17:14 08/08/16 23:57 50 MG Pantoprazole Sodium (Protonix Tab) 40 mg DAILY PO 08/08/16 09:00 09/07/16 08:59 08/09/16 09:37 40 MG Albuterol/ Ipratropium 3 ml 3 ml QIDR INH 08/07/16 20:00 09/06/16 19:59 08/09/16 15:41 3 ML Levofloxacin/Prmx (Levaquin / D5W/ Premixed D5W) 150 ml @ 100 mls/hr Q24H IV 08/07/16 20:00 08/14/16 19:59 08/08/16 20:42 100 MLS/HR Vancomycin HCl (Consult) 1 ea UD PRN N/A 08/07/16 19:30 09/06/16 19:29 Cefepime HCl (Consult) 1 ea UD PRN N/A 08/07/16 19:30 09/06/16 19:29 Enteral Nutritional Formula (Boost Glucose Control) 1 can PC PO 08/08/16 17:15 09/07/16 17:14 08/09/16 12:15 1 CAN Glucose (Glucose 40% Gel) 15-30 GRAMS 15 GRAMS... UD PRN PO 08/09/16 09:30 09/08/16 09:29 Glucose (Glucose Chew Tab) 4-8 Tablets 4 Tabl... UD PRN PO 08/09/16 09:30 09/08/16 09:29 Dextrose (Dextrose 50% 50ML Syringe) 25-50ML OF 50% DW IV FOR... UD PRN IV 08/09/16 09:30 09/08/16 09:29 Glucagon (Glucagon Inj) 1 mg UD PRN SQ 08/09/16 09:30 09/08/16 09:29 Bisacodyl (Dulcolax Tab) 5 mg BID PO 08/09/16 14:15 09/08/16 14:14 08/09/16 14:41 5 MG Polyethylene 17 gm 17 gm DAILY PRN PO 08/09/16 13:45 09/08/16 13:44 Vancomycin HCl 850 mg/Sodium Chloride 267 ml @ 125 mls/hr Q8H IV 08/09/16 20:00 08/13/16 23:59 Cefepime HCl/ Dextrose (Maxipime IV/D5 100ml) 112.5 ml @ 225 mls/hr Q8H IV 08/09/16 16:00 08/13/16 23:59 Insulin Human Regular (Insulin IV Infusion Protocol) 1 ea Q15M N/A 08/09/16 16:00 09/08/16 15:59 Insulin Aspart (novoLOG ASPART) SLIDING SCALE PCHS SC 08/09/16 17:15 09/08/16 17:14 Physical Exam Date Time Temp Pulse Resp B/P Pulse Ox O2 Delivery O2 Flow Rate FiO2 08/09/16 16:00 High Flow Oxygen 55.0 08/09/16 15:34 36.7 105 22 152/75 88 High Flow Oxygen 35.0 55 08/09/16 14:00 109 139/89 95 High Flow Oxygen 35.0 55 08/09/16 13:30 105 128/79 94 High Flow Oxygen 35.0 55 08/09/16 13:00 116 156/84 90 High Flow Oxygen 35.0 55 08/09/16 12:45 103 131/84 95 High Flow Oxygen 35.0 55 08/09/16 12:30 102 154/76 95 High Flow Oxygen 35.0 55 08/09/16 12:15 125 139/92 91 High Flow Oxygen 35.0 55 08/09/16 12:00 High Flow Oxygen 55 Venturi Mask 08/09/16 12:00 98 123/78 92 High Flow Oxygen 35.0 55 08/09/16 11:44 36.7 108 27 150/81 92 High Flow Oxygen 55 08/09/16 09:32 36.8 120 18 133/90 92 Venturi Mask 30 08/09/16 08:00 Venturi Mask 15.0 08/09/16 07:06 109 24 95 Venturi Mask 15.0 50 08/09/16 04:01 Venturi Mask 08/09/16 03:54 36.8 116 24 145/72 94 Diffusion Mask 08/09/16 03:24 116 26 96 Venturi Mask 15.0 50 08/09/16 00:00 36.8 114 24 135/86 93 Diffusion Mask 15.0 08/09/16 00:00 Venturi Mask 08/08/16 20:15 Venturi Mask 08/08/16 19:33 36.8 118 26 138/74 94 Mask 15.0 08/08/16 19:00 110 24 50 Venturi Mask 08/08/16 16:36 37.1 120 24 142/80 90 Mask 15.0 General Appearance: + cachetic, + pertinent finding (appears thin and chronically ill) ENT: hearing grossly normal Neck: no JVD Respiratory: + accessory muscle use, + crackles, + rhonchi, + pertinent finding (high-flow nasal cannula) Cardiovascular: regular rate, rhythm, no edema Abdomen: normal bowel sounds, non tender, soft Neurologic/Psychiatric: alert, normal mood/affect, oriented x 3 Laboratory Results Last 24 Hours Test 08/09/16 06:13 08/09/16 10:32 08/09/16 11:45 08/09/16 15:24 White Blood Count 16.30 K/uL Red Blood Count 3.24 M/uL Hemoglobin 9.2 g/dL Hematocrit 28.7 % Mean Corpuscular Volume 88.6 fL Mean Corpuscular Hemoglobin 28.4 pg Mean Corpuscular Hemoglobin Concent 32.1 g/dl Platelet Count 86 K/uL Mean Platelet Volume 10.4 fL Neutrophils (%) (Auto) 93.8 % Lymphocytes (%) (Auto) 2.1 % Monocytes (%) (Auto) 3.2 % Eosinophils (%) (Auto) 0.0 % Basophils (%) (Auto) 0.0 % Neutrophils # (Auto) 15.29 K/uL Lymphocytes # (Auto) 0.35 K/uL Monocytes # (Auto) 0.52 K/uL Eosinophils # (Auto) 0.00 K/uL Basophils # (Auto) 0.00 K/uL RDW Standard Deviation 49.9 fL RDW Coefficient of Variation 15.4 % Immature Granulocyte % (Auto) 0.9 % Immature Granulocyte # (Auto) 0.14 K/uL Nucleated RBC Absolute Count (auto) 0.08 K/uL Nucleated Red Blood Cells % 0.5 % Prothrombin Time 13.4 SECONDS Prothromb Time International Ratio 1.2 Sodium Level 140 mmol/L Potassium Level 4.0 mmol/L Chloride Level 104 mmol/L Carbon Dioxide Level 27 mmol/L Anion Gap 9.0 mmol/L Blood Urea Nitrogen 22 mg/dl Creatinine 0.91 mg/dl Est Creatinine Clear Calc Drug Dose 71.7 ml/min Estimated GFR () 109.6 Estimated GFR (Non- 94.5 BUN/Creatinine Ratio 24.5 Random Glucose 423 mg/dl 632 mg/dl Calcium Level 9.1 mg/dl Total Bilirubin 0.3 mg/dl Aspartate Amino Transf (AST/SGOT) 11 U/L Alanine Aminotransferase (ALT/SGPT) 20 U/L Alkaline Phosphatase 117 U/L Total Protein 6.1 gm/dl Albumin 2.0 gm/dl Globulin 4.1 gm/dl Albumin/Globulin Ratio 0.5 Beta-Hydroxybutyric Acid 1.00 mg/dL 1.04 mg/dL Bedside Glucose > 600 mg/dl 515 mg/dl Vancomycin Level Trough 8.9 mcg/ml Assessment & Plan Problem list: SOB Cough Hemoptysis Acute on chronic respiratory failure- high flow nasal cannula Non-small cell lung CA with mets to brain- 1st dose of Opdivo 08/05/16 PE and DVT- s/p IVC filter placement today Abdominal distention Hx of distal MCA infarct Goals of care (Z51.5) Palliative care plan: -Wishes to remain a full code, wants to be resuscitated if possible. -Plans to continue Opdivo. -Stated to me that his goal is to be home with his family- uncertain of this possibility as he is a prisoner. -Asked Sita, guest services coordinator, to see patient to speak to him. -Poor prognosis, 2-3 months per oncology. Patient is aware but doesn't believe in prognoses. States that God is the only one who can determine when it's his "time to go." -He denies any significant pain at this time, only complaints about SOB and cough. He understands that we are unable to aggressively treat symptoms as he is a level one full code and his respiratory status is tenuous. He states the breathing treatments and high-flow oxygen help.
[2016-08-09] MEDS ORDERED: INSULIN HUMAN REGULAR IV BOLUS 1.5 UNIT in SYRINGE 0 ML IV SCH (16:30)
[2016-08-09] MEDS: INSULIN REGULAR 250 UNITS in SODIUM CHLORIDE 0.9% 250ML 250 ML IV SCH ×2 (16:56→19:01)
[2016-08-09] MEDS: INSULIN ASPART 100 UNITS/ML 3 ML PEN SC SCH ×2 (17:15→21:00)
[2016-08-09] MEDS ORDERED: FLUCONAZOLE / NSS 200 MG in PREMIXED NSS 100 ML IV SCH (19:30)
[2016-08-09 19:39] LABS: BETA-HYDROXYBUTYRATE 1.51 mg/dL (0.2-2.81)
[2016-08-09 21:03] LABS: ARTERIAL BLD GAS O2 SATURATION 93.8 % (90-95); ARTERIAL BLOOD GAS BASE EXCESS 4.4 mEq/L (-9-1.8); ARTERIAL BLOOD GAS HCO3 29 mmol/L (19-24); ARTERIAL BLOOD GAS PO2 76 mm/Hg (80-95); ARTERIAL BLOOD GAS pH 7.46 (7.35-7.45)
[2016-08-09 21:05] LABS: ALLEN TEST POS (POS); O2 ADMINISTRATION 75%
[2016-08-09 21:37] LABS: BUN/CREATININE RATIO 23.3 (10-20); CALCIUM 9.1 mg/dl (8.5-10.1); CREATININE 1.2 mg/dl (0.60-1.40); POTASSIUM 4.1 mmol/L (3.5-5.1)
[2016-08-09] MEDS: LEVOFLOXACIN / D5W 750 MG in PREMIXED IN D5W 150 ML IV SCH (21:44)
[2016-08-09] MEDS: ATORVASTATIN 40 MG TAB PO SCH (21:44)
[2016-08-09 21:51] LABS: BETA-HYDROXYBUTYRATE 1.1 mg/dL (0.2-2.81)
[2016-08-09] MEDS: VANCOMYCIN INJ 850 MG in SODIUM CHLORIDE 0.9% 250ML 250 ML IV SCH (23:29)
[2016-08-10] VITALS (9 sets, daily range): BP systolic 116–150; BP diastolic 62–89; PULSE 100–122; TEMP 36.6–36.9; O2SAT 80–98
[2016-08-10] MEDS: CEFEPIME IV 2000 MG in DEXTROSE 5% 100ML IV SCH ×3 (00:46→16:26)
[2016-08-10] MEDS: ALBUT/IPRATROP 3MG/0.5MG NEB 3 ML VIAL INH SCH ×5 (03:58→19:17)
[2016-08-10] MEDS: VANCOMYCIN INJ 850 MG in SODIUM CHLORIDE 0.9% 250ML 250 ML IV SCH ×3 (04:40→20:09)
--- NOTE | 2016-08-10 07:21 | Hospitalist Progress Note ---
Hospitalist Progress Note Date of Service Aug 10, 2016. (Teresita Camilo PA-C) Subjective Pt evaluation today including: conversation w/ patient, physical exam, chart review, lab review, review of studies, review of inpatient medication list Pain: chest tightness, right ankle pain PO Intake: good Voiding: no voiding problems The patient was seen and examined this morning. Patient reports feeling short of breath even while on 45-55% high flow nasal cannula. His sats have been in the low 90s this morning. He reports overnight slept okay. He has been eating and drinking okay. Patient also had a bowel movement this morning, and feels abdomen is less distended Lengthy discussion was held with the patient at bedside today regarding goals of care, his code status, and what he were to do if he could not make decisions for himself. In detail CPR was discussed with the patient and the risks versus benefits of this, along with his current condition and prognosis. He is in agreement that we continue to treat him for his current symptoms and issues, but that " if its my time" he is in agreement with dying without medical intervention. He reports that he would not want to burden his family with making the decision of needing life support if he indeed needed to have CPR and was placed on a ventilator. He is in agreement with changing his code status to a no code after detailed discussion. All his questions and concerns were answered. Constitutional: No chills, No fever, No sweats Eyes: No diplopia, No redness ENT: No nasal symptoms, No sore throat, No trouble swallowing Respiratory: + cough, + dyspnea at rest, + shortness of breath, + sputum, + wheezing Cardiovascular: + problem reported (chest tightness substernally), No chest pain, No palpitations Abdomen: No constipation, No diarrhea, No nausea, No pain, No vomiting Musculoskeletal: + joint pain (right ankle), No calf pain, No muscle pain Male : No dysuria, No hematuria Endo: No fatigue Skin: No itch, No rash (Teresita Camilo PA-C) Objective Vital Signs Date Time Temp Pulse Resp B/P Pulse Ox O2 Delivery O2 Flow Rate FiO2 08/10/16 04:03 High Flow Oxygen 40.0 60 08/10/16 03:58 108 22 98 Nasal Cannula 40.0 55 08/10/16 03:58 36.9 104 22 134/86 96 High Flow Oxygen 08/10/16 00:11 High Flow Oxygen 40.0 60 08/09/16 23:01 36.5 114 22 131/76 91 High Flow Oxygen 08/09/16 20:55 High Flow Oxygen 08/09/16 19:37 117 22 95 Nasal Cannula 40.0 55 08/09/16 19:00 37.2 118 22 134/77 88 High Flow Oxygen 08/09/16 16:00 High Flow Oxygen 55.0 08/09/16 15:41 101 24 91 Nasal Cannula 40.0 55 08/09/16 15:34 36.7 105 22 152/75 88 High Flow Oxygen 35.0 55 08/09/16 14:00 109 139/89 95 High Flow Oxygen 35.0 55 08/09/16 13:30 105 128/79 94 High Flow Oxygen 35.0 55 08/09/16 13:00 116 156/84 90 High Flow Oxygen 35.0 55 08/09/16 12:45 103 131/84 95 High Flow Oxygen 35.0 55 08/09/16 12:30 102 154/76 95 High Flow Oxygen 35.0 55 08/09/16 12:15 125 139/92 91 High Flow Oxygen 35.0 55 08/09/16 12:00 High Flow Oxygen 55 Venturi Mask 08/09/16 12:00 98 123/78 92 High Flow Oxygen 35.0 55 08/09/16 11:44 36.7 108 27 150/81 92 High Flow Oxygen 55 08/09/16 09:32 36.8 120 18 133/90 92 Venturi Mask 30 08/09/16 08:00 Venturi Mask 15.0 (Teresita Camilo, PA-C) Physical Exam General Appearance: WD/WN, + mild distress, + pertinent finding (- Kosovan, on HFNC) Eyes: PERRL, EOMI ENT: hearing grossly normal, + pertinent finding (+ Thrush) Neck: no JVD Respiratory/Chest: no respiratory distress, no accessory muscle use, + respiratory distress, + pertinent finding (on HFNC) Cardiovascular: no murmur, + tachycardia Abdomen: normal bowel sounds, non tender, soft, no organomegaly Extremities: non-tender, no pedal edema, no calf tenderness Neurologic/Psychiatric: alert, normal mood/affect, oriented x 3 Skin: normal color, warm/dry (Teresita Camilo PA-C) Laboratory Results Last 24 Hours Test 08/09/16 10:32 08/09/16 11:45 08/09/16 15:24 08/09/16 17:53 Bedside Glucose > 600 mg/dl 515 mg/dl > 600 mg/dl Random Glucose 632 mg/dl Beta-Hydroxybutyric Acid 1.04 mg/dL Vancomycin Level Trough 8.9 mcg/ml Test 08/09/16 18:25 08/09/16 20:05 08/09/16 20:47 08/09/16 21:04 Random Glucose 477 mg/dl 420 mg/dl Beta-Hydroxybutyric Acid 1.51 mg/dL 1.10 mg/dL Bedside Glucose 446 mg/dl 384 mg/dl Arterial Blood pH 7.46 Arterial Blood Partial Pressure CO2 41 mmHg Arterial Blood Partial Pressure O2 76 mm/Hg Arterial Blood HCO3 29 mmol/L Arterial Blood Oxygen Saturation 93.8 % Arterial Blood Base Excess 4.4 mEq/L Arterial Blood Gas Delivery 75% Jovan Test POS Sodium Level 140 mmol/L Potassium Level 4.1 mmol/L Chloride Level 104 mmol/L Carbon Dioxide Level 28 mmol/L Anion Gap 8.0 mmol/L Blood Urea Nitrogen 28 mg/dl Creatinine 1.20 mg/dl Est Creatinine Clear Calc Drug Dose 54.4 ml/min Estimated GFR () 78.4 Estimated GFR (Non- 67.7 BUN/Creatinine Ratio 23.3 Calcium Level 9.1 mg/dl Test 08/09/16 22:00 08/09/16 23:02 08/10/16 00:04 08/10/16 01:02 Bedside Glucose 333 mg/dl 408 mg/dl 206 mg/dl 181 mg/dl Test 08/10/16 02:04 08/10/16 02:58 08/10/16 04:06 08/10/16 05:00 Bedside Glucose 146 mg/dl 161 mg/dl 166 mg/dl 191 mg/dl Test 08/10/16 06:41 08/10/16 06:57 Bedside Glucose 163 mg/dl (Teresita Camilo PA-C) Assessment and Plan 56 yo M w/ PMHx of known NSCLC, stage 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 In detail CPR was discussed with the patient and the risks versus benefits of this, along with his current condition and prognosis. He is in agreement that we continue to treat him for his current symptoms and issues, but that " if its my time" he is in agreement with dying without medical intervention. He reports that he would not want to burden his family with making the decision of needing life support if he indeed got CPR and was placed on a ventilator. He is in agreement with changing his code status to a no code after detailed discussion. All his questions and concerns were answered. Acute on chronic resp failure likely multifactorial from extensive PE, increasing tumor burden and ?PNA Hemoptysis - WBC =18K likely reactive in part from IVC placement yesterday- continue day # 3 cefepime and vanc (day 3 of antibiotic total) - Blood cx are NGTD prelim - Hemoptysis from increasing PE and tumor burden. - IVC filter was placed 08/[address] De Souza, pt tolerated the procedure well. With hx of hemoptysis pt will not need chemical anticoagulation. - Continue to hold coumadin, INR was supratherapeutic at time of admission . - Hgb = 9.1, this has dropped from 10.2 yesterday, likely dilutional as no complaints of further hemoptysis or other blood loss. NSCLC w/ mets to brain s/p chemotherapy and stereotactic radiation to brain - Heme/onc on board- appreciate recommendations, radiation therapy consult also appreciated - Palliative care and pastoral care on board - despite the pts very poor prognosis he is adamant that everything possible be done to save his life- see above the CODE STATUS has been changed to a no code. Discussion was held with Crystal Vasquez from palliative medicine and she knows of these changes - o2 per nursing protocol - Continue nivolumab (1st dose 08/05/16), next dose being in about 2 weeks - Radiation therapy consulted DM II - Hgb A1C= 8.2, glucoses have been elevated in the 400s-600s since admission - Restart Lantus 10 U BID - ISS with accuchecks ACHS Abdominal Distension -Had a bowel movement this morning.. Pt is likely swallowing air from being short of breath as well. He denies any acute abdominal complaints such as pain, nausea, vomiting, diarrhea. - Cont dulcolax and miralax scheduled Thrush, oral - Continue IV diflucan Left ankle pain x 3 weeks - Xray of the ankle shows no acute fracture. + swelling and pain - will do conservative management for now with elevation, analgesia, and ice Elevated troponin - likely demand ischemia from PE and right heart strain - no EKG changes - trended downwards from 1.62 --> 1.5 --> 1.26 Hx of distal MCA infarct 05/2016, possibly secondary to emboli of an unknown source - Cont atorvastatin 40 mg daily DVT ppx: Teds, SCDs, no chemical anticoagulation as this is clearly contraindicated. CODE STATUS: No code Disposition: Return to long-term when medically stable. Patient prognosis is grim, oncology has given 2-3 months of life left at this time. (Teresita Camilo, SHANELLE) Attending Attestation: Pt seen/examined, chart reviewed, care plan d/w Tyesha Camilo. I agree w/ the mathur components of her documentation. Overnight his respiratory status settled down some. Remained on insulin drip overnight for hyperglycemia; fsbs <200 early this AM. He voices to me that he thought a lot about our discussion yesterday (how critical his health status is, the advanced cancer, etc). He agreed to DNR status when he had a discussion about such with Ms. Jenkinskarenalconnile this am. Tele with sinus tach; no dysrhythmia. Overall feels about the same as yesterday. exam gen - looks more comfortable today; still with intermittent tachypnea but not as much as yesterday's exam mouth - thrush - improved neck - no JVD heart - tachy lungs - extensive crackles with poor air movement on right - no change; airation fair/good on left; scant wheeze today abd - distended but improved ext - left leg with 3+ edema, right leg with trace edema; pulses 2+ b/l A/P: 1. acute/chronic hypoxic resp failure 2. extensive PEs with DVTs with recent coumadin failure, s/p IVC filter, POD # 1 3. hemoptysis 2nd to stage 4 lung ca, PEs, etc 4. possible gram negative pneumonia 5. thrush 6. uncontrolled T2DM on insulin drip 7. acute kidney injury - resolved 8. COPD with exacerbation 9. now with DNR status 10. thrombocytopenia review of insulin drip log shows he requires about 1-2 units/hour basally and needed 15 units or so of regular insulin for meals with that said he remains significantly uncontrolled give lantus 14 units now, wean off drip through the night suspect he will need additional lantus cont steroids for COPD exacerbation cont IV abx for pneumonia cont diflucan for thrush DNR status prognosis is guarded with good change he may not recover from this hospital stay repeat cxr in AM for stability Anthony GARCIA MD (Teofilo Garcia MD)
[2016-08-10 07:32] LABS: HEMATOCRIT 28.4 % (42-52); MEAN CELL VOLUME 86.6 fL (80-100); MEAN CORPUSCULAR HEMOGLOBIN 27.7 pg (25-34); RED BLOOD COUNT 3.28 M/uL (4.7-6.1); WHITE BLOOD COUNT 18.43 K/uL (4.8-10.8)
[2016-08-10 07:36] LABS: MEAN PLATELET VOLUME 9.9 fL (7.4-10.4); PLATELET COUNT 90 K/uL (130-400)
[2016-08-10] MEDS: BOOST GLUCOSE CONTROL PO SCH ×3 (07:37→17:04)
[2016-08-10 07:38] LABS: INR 1.2 (0.9-1.1); PROTHROMBIN TIME (PATIENT) 12.4 SECONDS (9.0-12.0)
[2016-08-10] MEDS: INSULIN ASPART 100 UNITS/ML 3 ML PEN SC SCH ×4 (07:41→20:21)
[2016-08-10] MEDS: ACETAMINOPHEN 325 MG TAB PO SCH ×3 (07:44→20:12)
[2016-08-10] MEDS: BISACODYL 5 MG TABEC PO SCH ×2 (07:44→20:11)
[2016-08-10] MEDS: DEXAMETHASONE 4 MG TAB PO SCH ×2 (07:45→20:11)
[2016-08-10] MEDS: PANTOprazole SOD 40 MG TAB PO SCH (07:46)
[2016-08-10 08:00] LABS: ALB/GLOB RATIO 0.6 (0.9-2); BUN/CREATININE RATIO 39.5 (10-20); CALCIUM 8.8 mg/dl (8.5-10.1); CREATININE 0.65 mg/dl (0.60-1.40)
[2016-08-10 08:05] LABS: BASO % 0.1 %; BASO ABS # 0.01 K/uL (0-0.2); COMPLETE YES; IG% 1.3 %; LYMPH % 1.5 %; LYMPH ABS # 0.27 K/uL (1.2-3.4); MONO % 4.7 %; NEUT % 92.4 %
[2016-08-10] MEDS ORDERED: FLUCONAZOLE / NSS 100 MG in PREMIXED NSS 50 ML IV SCH (09:00)
[2016-08-10] MEDS: INSULIN REGULAR 250 UNITS in SODIUM CHLORIDE 0.9% 250ML 250 ML IV SCH ×5 (14:22→23:09)
[2016-08-10] MEDS: LEVOFLOXACIN / D5W 750 MG in PREMIXED IN D5W 150 ML IV SCH (19:22)
[2016-08-10] MEDS: ATORVASTATIN 40 MG TAB PO SCH (20:11)
[2016-08-11] VITALS (12 sets, daily range): BP systolic 110–147; BP diastolic 58–101; PULSE 98–128; TEMP 36.4–36.8; O2SAT 90–95; Ht 162.6 cm; Wt 57.2 kg
[2016-08-11] MEDS ORDERED: INSULIN GLARGINE SOLOSTAR 100 UNITS/ML 3 ML PEN SC ONE
[2016-08-11] MEDS: CEFEPIME IV 2000 MG in DEXTROSE 5% 100ML IV SCH ×3 (00:17→16:29)
[2016-08-11] MEDS: ALBUT/IPRATROP 3MG/0.5MG NEB 3 ML VIAL INH SCH ×5 (00:38→19:11)
[2016-08-11] MEDS ORDERED: VANCOMYCIN TROUGH SCH (03:30)
[2016-08-11] MEDS: VANCOMYCIN INJ 850 MG in SODIUM CHLORIDE 0.9% 250ML 250 ML IV SCH ×2 (04:02→11:45)
[2016-08-11 06:59] LABS: BUN/CREATININE RATIO 38.8 (10-20); CALCIUM 8.6 mg/dl (8.5-10.1); CREATININE 0.69 mg/dl (0.60-1.40)
--- NOTE | 2016-08-11 07:23 | DIAGNOSTIC IMAGING REPORT ---
CHEST ONE VIEW PORTABLE CLINICAL HISTORY: Respiratory failure COMPARISON STUDY: 08/07/2016 FINDINGS: The chest has an emphysematous configuration. The left lung is generally clear. There are right basilar airspace opacities. There is a persistent right mid upper lung zone cavitary mass.[ There is a small amount of right pleural fluid present. IMPRESSION: 1. Persistent 7 cm right mid upper lung zone cavitary mass 2. Right pleural effusion 3. Right lower lung zone airspace opacities suspicious for pneumonia. 4. Emphysema Electronically signed by: Ab Koenig M.D. 08/11/2016 7:21 AM Dictated Date/Time: 08/11/2016 7:18 AM
[2016-08-11] MEDS: BOOST GLUCOSE CONTROL PO SCH ×3 (08:00→17:15)
[2016-08-11] MEDS: PANTOprazole SOD 40 MG TAB PO SCH (08:14)
[2016-08-11] MEDS: ACETAMINOPHEN 325 MG TAB PO SCH ×3 (08:14→21:36)
[2016-08-11] MEDS: BISACODYL 5 MG TABEC PO SCH ×2 (08:14→21:34)
[2016-08-11] MEDS: DEXAMETHASONE 4 MG TAB PO SCH ×2 (08:16→21:33)
[2016-08-11] MEDS: INSULIN ASPART 100 UNITS/ML 3 ML PEN SC SCH ×4 (08:20→21:43)
[2016-08-11] MEDS: FLUCONAZOLE 100 MG TAB PO SCH (08:31)
[2016-08-11] MEDS ORDERED: INSULIN GLARGINE SOLOSTAR 100 UNITS/ML 3 ML PEN SC SCH (09:00)
[2016-08-11] MEDS ORDERED: MoRPHine SULFATE 5 MG/0.25 ML UDP PO PRN (11:30)
[2016-08-11] MEDS: FENTANYL PATCH REMOVE & WASTE SCH (11:39)
[2016-08-11] MEDS: FENTANYL 12 MCG/HR TDSY TD SCH (11:50)
[2016-08-11] MEDS: CHECK FENTANYL PATCH PLACEMENT SCH (16:06)
[2016-08-11] MEDS: LEVOFLOXACIN / D5W 750 MG in PREMIXED IN D5W 150 ML IV SCH (21:31)
[2016-08-11] MEDS: ATORVASTATIN 40 MG TAB PO SCH (21:34)
--- NOTE | 2016-08-11 23:47 | Progress Note ---
Subjective Date of Service: Aug 11, 2016. Subjective Pt evaluation today including: conversation w/ patient, physical exam, chart review, lab review, conversation w/ road consultant (heme/onc) Pain: right chest PO Intake: fair Voiding: no voiding problems tele with sinus tach he reports he overall feels better but still with considerable dyspnea with any activity he talks alot about his date in which he will get out of [facility] (November 2016) his goal is to "get well enough to get out of here" he understands that there is a high likelihood he will remain in the [facility] indefinitely at the sn[facility] Problem List Medical Problems: (1) Dizziness Status: Acute (2) Elevated troponin Status: Acute (3) Hypoxia Status: Acute (4) Metastatic disease Status: Acute (5) Metastatic lung cancer (metastasis from lung to other site) Status: Acute (6) Pneumonia Status: Acute (7) Stroke Status: Acute (8) Syncope Status: Acute (9) Vasogenic brain edema Status: Acute Review of Systems Constitutional: No chills, No fever Respiratory: + cough, + dyspnea on exertion, + shortness of breath, + wheezing Cardiac: + chest pain, + orthopnea Abdomen: No constipation, No pain Objective Vital Signs Date Time Temp Pulse Resp B/P Pulse Ox O2 Delivery O2 Flow Rate FiO2 08/11/16 23:22 36.7 128 20 145/101 92 High Flow Oxygen 08/11/16 20:00 High Flow Oxygen 40.0 45 08/11/16 19:25 36.7 116 20 124/84 92 High Flow Oxygen 08/11/16 19:16 114 26 92 Nasal Cannula 45.0 40 08/11/16 16:15 120 32 90 Venturi Mask 15.0 50 08/11/16 16:00 High Flow Oxygen 40.0 45 08/11/16 15:40 36.6 113 24 147/80 90 Nasal Cannula 6.0 08/11/16 12:00 Nasal Cannula 6.0 08/11/16 11:44 36.8 101 18 110/58 95 08/11/16 11:13 112 20 90 Nasal Cannula 6.0 08/11/16 08:30 104 20 93 Nasal Cannula 6.0 08/11/16 08:00 Nasal Cannula 6.0 08/11/16 07:53 36.8 101 18 118/63 93 08/11/16 04:00 Nasal Cannula 6.0 08/11/16 03:54 36.5 98 20 137/83 95 Nasal Cannula 5.0 08/11/16 00:38 109 20 93 Nasal Cannula 6.0 08/11/16 00:18 36.4 107 20 131/88 93 5.0 08/11/16 00:00 Nasal Cannula 6.0 Physical Exam General Appearance: no apparent distress, + thin ENT: + pertinent finding (thrush improved) Neck: no JVD Respiratory/Chest: + decreased breath sounds (right base), + crackles ( extensive, most of right hemithorax), + wheezing Cardiovascular: no gallop, no murmur, + tachycardia Abdomen: non tender, no organomegaly, + distended Extremities: + pedal edema (left leg), + swelling (left leg - severe) Neurologic/Psychiatric: alert, oriented x 3 Laboratory Results Last 24 Hours Test 08/10/16 23:56 08/11/16 01:04 08/11/16 02:20 08/11/16 03:40 Bedside Glucose 229 mg/dl 214 mg/dl 178 mg/dl Vancomycin Level Trough 18.2 mcg/ml Test 08/11/16 06:05 08/11/16 06:37 08/11/16 11:33 08/11/16 14:25 Sodium Level 140 mmol/L Potassium Level 4.0 mmol/L Chloride Level 104 mmol/L Carbon Dioxide Level 28 mmol/L Anion Gap 8.0 mmol/L Blood Urea Nitrogen 27 mg/dl Creatinine 0.69 mg/dl Est Creatinine Clear Calc Drug Dose 96.7 ml/min Estimated GFR () 123.9 Estimated GFR (Non- 106.9 BUN/Creatinine Ratio 38.8 Random Glucose 269 mg/dl Calcium Level 8.6 mg/dl Bedside Glucose 275 mg/dl 401 mg/dl 339 mg/dl Test 08/11/16 16:14 08/11/16 19:55 Bedside Glucose 271 mg/dl 193 mg/dl Assessment and Plan 56yo male with: 1. acute/chronic hypoxic resp failure - acute component 2nd to severe COPD, PEs , possible pneumonia, and worsening lung ca. 2. extensive PEs with DVTs with recent coumadin failure, s/p IVC filter. Not a good candidate for lovenox due to hemoptysis and low platelets. 3. hemoptysis 2nd to stage 4 lung ca, PEs, etc - likely to be ongoing. 4. possible gram negative pneumonia - day #5 of IV abx; no MRSA coverage at this time. 5. thrush - improved; convert IV to po diflucan. 6. uncontrolled T2DM on insulin drip - drip stopped overnight, additional lantus given this am, adjust novolog correction and carb ratio. 7. acute kidney injury - resolved 8. COPD with exacerbation - on steroids. 9. now with DNR status - palliative care consulted. 10. thrombocytopenia - ongoing - repeat CBC in am for stability. 11. right chest pain - due to cancer, PEs, etc - start fentanyl patch 12mcg q3d and morphine elixir q3h prn. very, very poor prognosis he is likely to make very little progress while here needs hospice/palliation upon d/c to snf Continued [facility] stay due to: abnormal vital signs, inadequate oral pain control , ambulation difficulties, multiple IV medications needed Discharge planning: other (snf )
[2016-08-12] VITALS (12 sets, daily range): BP systolic 125–153; BP diastolic 63–97; PULSE 68–117; TEMP 36.4–36.7; O2SAT 92–96
[2016-08-12] MEDS: CHECK FENTANYL PATCH PLACEMENT SCH ×3 (00:12→16:00)
[2016-08-12] MEDS: CEFEPIME IV 2000 MG in DEXTROSE 5% 100ML IV SCH ×3 (00:12→18:53)
[2016-08-12 06:16] LABS: HEMATOCRIT 32.1 % (42-52); MEAN CELL VOLUME 87.9 fL (80-100); MEAN CORPUSCULAR HEMOGLOBIN 27.9 pg (25-34); MEAN CORPUSCULAR HGB CONC 31.8 g/dl (32-36); RED BLOOD COUNT 3.65 M/uL (4.7-6.1); WHITE BLOOD COUNT 20.55 K/uL (4.8-10.8)
[2016-08-12] MEDS: ALBUT/IPRATROP 3MG/0.5MG NEB 3 ML VIAL INH SCH ×4 (06:45→19:07)
[2016-08-12 06:54] LABS: BUN/CREATININE RATIO 39.9 (10-20); CALCIUM 8.8 mg/dl (8.5-10.1); CREATININE 0.69 mg/dl (0.60-1.40); MAGNESIUM 2.3 mg/dl (1.8-2.4); PHOSPHORUS 1.7 mg/dl (2.5-4.9); POTASSIUM 4.1 mmol/L (3.5-5.1)
[2016-08-12 07:04] LABS: MEAN PLATELET VOLUME 10.4 fL (7.4-10.4); PLATELET COUNT 85 K/uL (130-400)
[2016-08-12 07:13] LABS: BASO % 0.1 %; BASO ABS # 0.03 K/uL (0-0.2); COMPLETE YES; IG% 2.5 %; LYMPH % 0.7 %; LYMPH ABS # 0.15 K/uL (1.2-3.4); MONO % 7.4 %; NEUT % 89.3 %; VACUOLIZATION 2+
[2016-08-12] MEDS: BOOST GLUCOSE CONTROL PO SCH ×3 (08:00→18:17)
[2016-08-12] MEDS: FLUCONAZOLE 100 MG TAB PO SCH (08:23)
[2016-08-12] MEDS: BISACODYL 5 MG TABEC PO SCH ×2 (08:23→21:19)
[2016-08-12] MEDS: DEXAMETHASONE 4 MG TAB PO SCH ×3 (08:24→21:19)
[2016-08-12] MEDS: PANTOprazole SOD 40 MG TAB PO SCH (08:24)
[2016-08-12] MEDS: ACETAMINOPHEN 325 MG TAB PO SCH ×3 (08:28→21:20)
[2016-08-12] MEDS: INSULIN ASPART 100 UNITS/ML 3 ML PEN SC SCH ×4 (08:33→21:26)
[2016-08-12] MEDS ORDERED: INSULIN GLARGINE SOLOSTAR 100 UNITS/ML 3 ML PEN SC SCH (09:00)
[2016-08-12] MEDS: POT PHOSPHATE MONOBASIC W/ SOD TAB PO SCH ×4 (09:39→21:19)
[2016-08-12] MEDS: BUDESONIDE/FORMOTEROL FUMARATE 160/4.5 60 PUFFS/INHALER INH SCH ×2 (14:20→21:18)
[2016-08-12] MEDS ORDERED: NURSING VERBAL MED ORDER ONE (15:00)
[2016-08-12] MEDS ORDERED: MoRPHine SULFATE 5 MG/0.25 ML UDP PO PRN (15:15)
--- NOTE | 2016-08-12 15:54 | Palliative Care Progress Note ---
Palliative Care Progress Note Date of Service Aug 12, 2016. Subjective Pt evaluation today including: conversation w/ patient, physical exam, chart review, conversation w/ product marketing consultant ( ), review of inpatient medication list Pain: 6/10 im right side lower ribs/RUQ, is comfortable with pain rating PO Intake: no issues reported Voiding: no voiding problems -Patient is awake, alert and oriented. States he feels a little better today. -Remains on high-flow nasal cannula at 47L, 40% FiO2. Still receiving steroids and IV abx. -CXR yesterday: "1. Persistent 7 cm right mid upper lung zone cavitary mass 2. Right pleural effusion 3. Right lower lung zone airspace opacities suspicious for pneumonia. 4. Emphysema." -I had a lengthy discussion with the patient about his condition and prognosis. Patient is aware that we are giving supportive care but no major improvements have been made. In the condition he is in, he will not be able to receive Opdivo , and it's very unlikely that he will be able to improve from where he is at this point. The patient verbalized understanding, and recapped by stating, "So what you're telling me is that Opdivo isn't helping, I probably can't get it again, and I might not improve." He then stated that his only goal is to make it till November 2016 because that is when his release date is. I voiced my concern that the medical team believes he may not make it that long. He understands. Review of Systems Constitutional: + fatigue, No chills, No fever Respiratory: + cough, + dyspnea on exertion ( ), + sputum (brownish) Cardiac: + edema (left lower extremity), No chest pain Abdomen: + pain, No nausea, No vomiting Male : No problem reported Psychiatric: No anxiety Objective Vital Signs Date Time Temp Pulse Resp B/P Pulse Ox O2 Delivery O2 Flow Rate FiO2 08/12/16 12:00 Nasal Cannula 47.0 40 08/12/16 11:31 36.5 68 20 133/68 95 08/12/16 11:24 116 22 92 Nasal Cannula 46.0 40 08/12/16 08:00 Nasal Cannula 47.0 40 08/12/16 08:00 36.7 76 18 129/63 93 08/12/16 06:52 115 26 92 Nasal Cannula 47.0 40 08/12/16 04:00 High Flow Oxygen 45 08/12/16 04:00 36.7 109 25 125/82 95 High Flow Oxygen 45 08/12/16 00:00 High Flow Oxygen 45 08/11/16 23:22 36.7 128 20 145/101 92 High Flow Oxygen 08/11/16 20:00 High Flow Oxygen 40.0 45 08/11/16 19:25 36.7 116 20 124/84 92 High Flow Oxygen 08/11/16 19:16 114 26 92 Nasal Cannula 45.0 40 08/11/16 16:15 120 32 90 Venturi Mask 15.0 50 08/11/16 16:00 High Flow Oxygen 40.0 45 08/11/16 15:40 36.6 113 24 147/80 90 Nasal Cannula 6.0 Physical Exam General Appearance: + cachetic, + thin Neck: no JVD Respiratory/Chest: + decreased breath sounds (L > R), + rhonchi (coarse), + pertinent finding (mildly tachypneic at rest) Cardiovascular: regular rate, rhythm, + pertinent finding (+2-3 pitting edema to left foot and ankle) Abdomen: normal bowel sounds, non tender, + distended (protuberant) Neurologic/Psychiatric: alert, normal mood/affect, oriented x 3 Laboratory Results Last 24 Hours Test 08/11/16 16:14 08/11/16 19:55 08/12/16 05:44 08/12/16 11:19 Bedside Glucose 271 mg/dl 193 mg/dl 331 mg/dl White Blood Count 20.55 K/uL Red Blood Count 3.65 M/uL Hemoglobin 10.2 g/dL Hematocrit 32.1 % Mean Corpuscular Volume 87.9 fL Mean Corpuscular Hemoglobin 27.9 pg Mean Corpuscular Hemoglobin Concent 31.8 g/dl Platelet Count 85 K/uL Mean Platelet Volume 10.4 fL Neutrophils (%) (Auto) 89.3 % Lymphocytes (%) (Auto) 0.7 % Monocytes (%) (Auto) 7.4 % Eosinophils (%) (Auto) 0.0 % Basophils (%) (Auto) 0.1 % Neutrophils # (Auto) 18.33 K/uL Lymphocytes # (Auto) 0.15 K/uL Monocytes # (Auto) 1.52 K/uL Eosinophils # (Auto) 0.00 K/uL Basophils # (Auto) 0.03 K/uL RDW Standard Deviation 50.0 fL RDW Coefficient of Variation 15.5 % Immature Granulocyte % (Auto) 2.5 % Immature Granulocyte # (Auto) 0.52 K/uL Nucleated RBC Absolute Count (auto) 0.23 K/uL Nucleated Red Blood Cells % 1.1 % Toxic Vacuolation 2+ Sodium Level 141 mmol/L Potassium Level 4.1 mmol/L Chloride Level 106 mmol/L Carbon Dioxide Level 29 mmol/L Anion Gap 6.0 mmol/L Blood Urea Nitrogen 28 mg/dl Creatinine 0.69 mg/dl Est Creatinine Clear Calc Drug Dose 95.3 ml/min Estimated GFR () 123.9 Estimated GFR (Non- 106.9 BUN/Creatinine Ratio 39.9 Random Glucose 231 mg/dl Calcium Level 8.8 mg/dl Phosphorus Level 1.7 mg/dl Magnesium Level 2.3 mg/dl Assessment and Plan Problem list: SOB Cough Hemoptysis Acute on chronic respiratory failure- high flow nasal cannula Non-small cell lung CA with mets to brain- 1st dose of Opdivo 08/05/16 PE and DVT- s/p IVC filter placement today Abdominal distention Hx of distal MCA infarct Goals of care (Z51.5) Palliative care plan: discussed with patient and Dr. Garcia -DNR/DNI per patient's conversation with SHANELLE Arambula. -Decrease Roxanol to 5mg PO Q3h PRN pain or SOB. -Continue Fentanyl 12mcg/hr Q72. Can increase to 25mcg/hr tomorrow if pain persists. -Continue current supportive treatment for now. -Remains on high-flow nasal cannula at this time, uncertain if this will be able to be weaned any further. Will defer to medical team. -Dr. Garcia will speak to care home about having family visit patient as his prognosis is very poor at this point. -Patient's goal is to make it till November so that he can be released from care home and make it home with his family. I will continue to follow as needed. Palliative Performance Scale: 40 % (mainly in bed, requires mainly assistance, decreased intake.) Continued [facility] stay due to: multiple IV medications needed, other (still receiving acute treatment)
[2016-08-12] MEDS: LEVOFLOXACIN 750 MG TAB PO SCH (21:20)
[2016-08-12] MEDS: INSULIN GLARGINE SOLOSTAR 100 UNITS/ML 3 ML PEN SC SCH (21:27)
[2016-08-13] VITALS (12 sets, daily range): BP systolic 124–150; BP diastolic 78–85; PULSE 72–117; TEMP 36.5–36.8; O2SAT 91–99
[2016-08-13] MEDS: CEFEPIME IV 2000 MG in DEXTROSE 5% 100ML IV SCH ×3 (00:14→16:21)
[2016-08-13] MEDS: CHECK FENTANYL PATCH PLACEMENT SCH ×4 (00:20→23:13)
[2016-08-13] MEDS: ALBUT/IPRATROP 3MG/0.5MG NEB 3 ML VIAL INH SCH ×5 (03:54→18:58)
--- NOTE | 2016-08-13 06:27 | Progress Note ---
Subjective Date of Service: late entry for visit August 12, 2016. Subjective Pt evaluation today including: conversation w/ patient, physical exam, chart review, lab review, conversation w/ fashion consultant selling (pallative care), review of inpatient medication list Pain: improved s/p fentanyl patch yesterday PO Intake: improved Voiding: no voiding problems still dyspneic with just rolling in the bed tele with sinus tach only he has multiple questions about his status Problem List Medical Problems: (1) Dizziness Status: Acute (2) Elevated troponin Status: Acute (3) Hypoxia Status: Acute (4) Metastatic disease Status: Acute (5) Metastatic lung cancer (metastasis from lung to other site) Status: Acute (6) Pneumonia Status: Acute (7) Stroke Status: Acute (8) Syncope Status: Acute (9) Vasogenic brain edema Status: Acute Review of Systems Constitutional: No fever Respiratory: + cough, + dyspnea on exertion, + shortness of breath, + wheezing Cardiac: No chest pain Abdomen: No pain Objective Vital Signs Date Time Temp Pulse Resp B/P Pulse Ox O2 Delivery O2 Flow Rate FiO2 08/13/16 03:54 72 20 97 Nasal Cannula 45.0 50 08/13/16 03:45 36.8 111 24 150/83 97 High Flow Oxygen 45.0 50 08/13/16 00:50 High Flow Oxygen 45.0 50 08/13/16 00:01 36.8 109 24 126/85 98 High Flow Oxygen 45.0 50 08/12/16 19:07 109 20 96 Nasal Cannula 45.0 50 08/12/16 17:01 36.5 96 20 140/97 95 High Flow Oxygen 45.0 50 Nasal Cannula 08/12/16 16:00 93 High Flow Oxygen 45.0 50 08/12/16 15:46 36.4 116 22 153/83 93 50 08/12/16 15:45 36.5 117 20 93 45.0 08/12/16 15:37 117 20 93 Nasal Cannula 45.0 50 08/12/16 15:02 36.5 68 20 95 47.0 08/12/16 12:00 Nasal Cannula 47.0 40 08/12/16 11:31 36.5 68 20 133/68 95 08/12/16 11:24 116 22 92 Nasal Cannula 46.0 40 08/12/16 08:00 Nasal Cannula 47.0 40 08/12/16 08:00 36.7 76 18 129/63 93 08/12/16 06:52 115 26 92 Nasal Cannula 47.0 40 Physical Exam General Appearance: no apparent distress (but gets dyspenic if he tries to move in bed) ENT: + pertinent finding (thrush markedly improved) Neck: no JVD Respiratory/Chest: + respiratory distress, + decreased breath sounds (right base), + crackles (extensive, on right), + wheezing (b/l) Cardiovascular: no gallop, no murmur, + tachycardia Abdomen: normal bowel sounds, non tender, no organomegaly, + distended Extremities: + pedal edema (3+), + swelling (left leg - 3+ ) Neurologic/Psychiatric: alert, oriented x 3 Laboratory Results Last 24 Hours Test 08/12/16 11:19 08/12/16 16:08 08/12/16 20:07 Bedside Glucose 331 mg/dl 265 mg/dl 291 mg/dl Assessment and Plan 56yo male with: 1. acute/chronic hypoxic resp failure - acute component 2nd to severe COPD, PEs , possible pneumonia, and worsening lung ca. Ongoing. Weaning his O2 will be challenging. 2. extensive PEs with DVTs with recent coumadin failure, s/p IVC filter. Not a good candidate for lovenox due to hemoptysis and low platelets. 3. hemoptysis 2nd to stage 4 lung ca, PEs, etc - likely to be ongoing. 4. possible gram negative pneumonia - day #6 of IV abx; no MRSA coverage at this time. Plan 7-10 days of Rx. 5. thrush - improved; continue diflucan. 6. uncontrolled T2DM - increase lantus. adjust novolog. 7. acute kidney injury - resolved 8. COPD with exacerbation - on steroids. continue such. 9. now with DNR status - palliative care consulted. They saw him again today to help with counseling and his care plan. 10. thrombocytopenia - ongoing - repeat CBC in am for stability. 11. right chest pain - due to cancer, PEs, etc - stared fentanyl patch 12mcg q3d and morphine elixir q3h prn with improvement d/c tele; move to med/surg will recommend hospice/palliative care upon return to longterm very, very poor prognosis he is likely to make very little progress while here Continued [facility] stay due to: multiple IV medications needed, other (still receiving acute treatment)
[2016-08-13] MEDS: BOOST GLUCOSE CONTROL PO SCH ×4 (09:00→18:21)
[2016-08-13] MEDS: INSULIN ASPART 100 UNITS/ML 3 ML PEN SC SCH ×4 (09:31→21:09)
[2016-08-13] MEDS: BUDESONIDE/FORMOTEROL FUMARATE 160/4.5 60 PUFFS/INHALER INH SCH ×2 (09:33→20:56)
[2016-08-13] MEDS: DEXAMETHASONE 4 MG TAB PO SCH ×3 (09:35→20:57)
[2016-08-13] MEDS: BISACODYL 5 MG TABEC PO SCH ×2 (09:36→21:02)
[2016-08-13] MEDS: FLUCONAZOLE 100 MG TAB PO SCH (09:36)
[2016-08-13] MEDS: POT PHOSPHATE MONOBASIC W/ SOD TAB PO SCH ×4 (09:37→20:58)
[2016-08-13] MEDS: PANTOprazole SOD 40 MG TAB PO SCH (09:37)
[2016-08-13] MEDS: BENZONATATE 100MG CAP PO PRN ×2 (09:38→23:27)
[2016-08-13] MEDS: ACETAMINOPHEN 325 MG TAB PO SCH ×3 (09:38→20:58)
[2016-08-13] MEDS: INSULIN GLARGINE SOLOSTAR 100 UNITS/ML 3 ML PEN SC SCH ×2 (10:16→21:09)
--- NOTE | 2016-08-13 15:00 | DIAGNOSTIC IMAGING REPORT ---
KUB CLINICAL HISTORY: Evaluate for small bowel obstruction. COMPARISON STUDY: PET/CT July 27, 2016. FINDINGS: An IVC filter is in place. There is no evidence for a small or large bowel obstruction. There is moderate gaseous distention of the stomach. Mass-like right lung opacity is partially imaged on this exam. IMPRESSION: 1. No evidence for a bowel obstruction. 2. Moderate gaseous distention of the stomach. Electronically signed by: Levy Ansari M.D. 08/13/2016 2:58 PM Dictated Date/Time: 08/13/2016 2:57 PM
[2016-08-13] MEDS: LEVOFLOXACIN 750 MG TAB PO SCH (20:58)
[2016-08-14] VITALS (10 sets, daily range): BP systolic 124–149; BP diastolic 75–87; PULSE 94–115; TEMP 36.3–36.7; O2SAT 92–96
--- NOTE | 2016-08-14 00:20 | Progress Note ---
Subjective Date of Service: late entry for visit on Aug 13, 2016. Subjective Pt evaluation today including: conversation w/ patient, physical exam, chart review, lab review, review of studies (KUB x-ray), review of inpatient medication list Pain: upper abdomen only PO Intake: improved Voiding: no voiding problems patient tearful during the visit he states that yesterday and today he has been thinking about his situation and that he knows everything is going to be alright he tells me "never smoke doc!" thinks his breathing is a little more comfortable Problem List Medical Problems: (1) Dizziness Status: Acute (2) Elevated troponin Status: Acute (3) Hypoxia Status: Acute (4) Metastatic disease Status: Acute (5) Metastatic lung cancer (metastasis from lung to other site) Status: Acute (6) Pneumonia Status: Acute (7) Stroke Status: Acute (8) Syncope Status: Acute (9) Vasogenic brain edema Status: Acute Review of Systems Constitutional: + fever, No chills Respiratory: + cough, + dyspnea on exertion, + hemoptysis, + shortness of breath, + sputum, + wheezing Cardiac: No chest pain Abdomen: + pain, No diarrhea, No nausea, No vomiting Objective Vital Signs Date Time Temp Pulse Resp B/P Pulse Ox O2 Delivery O2 Flow Rate FiO2 08/13/16 23:42 36.8 116 20 134/84 93 4.0 08/13/16 21:41 Nasal Cannula 4.0 08/13/16 19:36 36.5 115 20 132/81 91 2.0 08/13/16 18:58 103 16 96 Nasal Cannula 4.0 08/13/16 16:00 Nasal Cannula 4.0 08/13/16 15:30 106 20 94 Nasal Cannula 4.0 08/13/16 15:04 36.8 113 20 142/85 93 4.0 08/13/16 12:07 36.5 99 20 144/78 99 08/13/16 11:17 117 20 93 Nasal Cannula 40.0 40 08/13/16 08:00 High Flow Oxygen 40.0 40 08/13/16 07:29 36.5 99 20 124/80 99 08/13/16 07:18 105 18 96 Nasal Cannula 40.0 40 08/13/16 03:54 72 20 97 Nasal Cannula 45.0 50 08/13/16 03:45 36.8 111 24 150/83 97 High Flow Oxygen 45.0 50 08/13/16 00:50 High Flow Oxygen 45.0 50 Physical Exam General Appearance: no apparent distress, + pertinent finding (tearful; NAD otherwise ) ENT: pharynx normal (thrush resolved) Neck: no JVD Respiratory/Chest: no respiratory distress, no accessory muscle use, + rales ( extensive - most of right lung), + wheezing (b/l) Cardiovascular: no gallop, no murmur, + tachycardia Abdomen: no organomegaly, + distended, + tenderness (RUQ/epigastric region) Extremities: + pedal edema (3+ left foot, none on right), + swelling (extensive , left leg) Neurologic/Psychiatric: alert, + depressed affect Laboratory Results Last 24 Hours Test 08/13/16 09:28 08/13/16 11:17 08/13/16 16:08 08/13/16 20:00 Bedside Glucose 386 mg/dl 351 mg/dl 253 mg/dl 210 mg/dl Assessment and Plan 56yo male with: 1. acute/chronic hypoxic resp failure - acute component 2nd to severe COPD, PEs , possible pneumonia, and worsening lung ca. Wean HFNC to standard NC today if possible. 2. extensive PEs with DVTs with recent coumadin failure, s/p IVC filter. Not a good candidate for lovenox due to hemoptysis and low platelets. 3. hemoptysis 2nd to stage 4 lung ca, PEs, etc - likely to be ongoing. 4. possible gram negative pneumonia - day #7 of IV abx; no MRSA coverage at this time. d/c abx after today's doses. 5. thrush - improved; continue diflucan for 10 days. 6. uncontrolled T2DM - increase lantus and novolog both. 7. acute kidney injury - resolved 8. COPD with exacerbation - on steroids TID. continue such. cont spiriva. cont nebs. 9. abdominal pain/discomfort - check portable KUB; large gastric bubble present likely accounting for his symptoms. 10. thrombocytopenia - ongoing - 2nd to cancer 11. right chest pain - due to cancer, PEs, etc - stared fentanyl patch 12mcg q3d and morphine elixir q3h prn with improvement 12. possible depression - consider anti-depressant will recommend hospice/palliative care upon return to [facility] very, very poor prognosis he is likely to make very little progress while here Continued [facility] stay due to: multiple IV medications needed, other Discharge planning: other ([facility])
[2016-08-14] MEDS: ALBUT/IPRATROP 3MG/0.5MG NEB 3 ML VIAL INH SCH ×3 (07:04→15:29)
[2016-08-14] MEDS: BUDESONIDE/FORMOTEROL FUMARATE 160/4.5 60 PUFFS/INHALER INH SCH ×2 (08:01→20:24)
[2016-08-14] MEDS: CHECK FENTANYL PATCH PLACEMENT SCH ×3 (08:02→23:38)
[2016-08-14] MEDS: DEXAMETHASONE 4 MG TAB PO SCH ×3 (08:02→20:25)
[2016-08-14] MEDS: POT PHOSPHATE MONOBASIC W/ SOD TAB PO SCH ×4 (08:03→20:32)
[2016-08-14] MEDS: FLUCONAZOLE 100 MG TAB PO SCH (08:03)
[2016-08-14] MEDS: PANTOprazole SOD 40 MG TAB PO SCH (08:04)
[2016-08-14] MEDS: BENZONATATE 100MG CAP PO PRN ×2 (08:05→17:58)
[2016-08-14] MEDS: ACETAMINOPHEN 325 MG TAB PO SCH ×3 (08:05→20:25)
[2016-08-14] MEDS: BISACODYL 5 MG TABEC PO SCH ×2 (08:07→20:32)
[2016-08-14] MEDS: INSULIN ASPART 100 UNITS/ML 3 ML PEN SC SCH ×4 (09:01→20:35)
[2016-08-14] MEDS: INSULIN GLARGINE SOLOSTAR 100 UNITS/ML 3 ML PEN SC SCH (09:01)
[2016-08-14] MEDS: FENTANYL PATCH REMOVE & WASTE SCH (09:02)
[2016-08-14] MEDS: BOOST GLUCOSE CONTROL PO SCH ×3 (09:03→17:54)
[2016-08-14] MEDS: FENTANYL 12 MCG/HR TDSY TD SCH (09:04)
[2016-08-14] MEDS ORDERED: NURSING VERBAL MED ORDER ONE (20:45)
[2016-08-14] MEDS ORDERED: COUGH DROP (SUGAR FREE) LOZ 24 LOZ/1 BOX PO PRN (20:45)
[2016-08-14] MEDS ORDERED: INSULIN GLARGINE SOLOSTAR 100 UNITS/ML 3 ML PEN SC SCH (21:00)
[2016-08-14] MEDS: SIMETHICONE 80 MG CHEW PO PRN (21:17)
--- NOTE | 2016-08-14 23:29 | Progress Note ---
Subjective Date of Service: Aug 14, 2016. Subjective Pt evaluation today including: conversation w/ patient, physical exam, chart review, lab review, review of studies (KUB x-ray from 08/13), review of inpatient medication list Pain: stomach - epigastric area PO Intake: eating 100% of meals despite abd pain Voiding: no voiding problems He continues with mild abd pain and distension/bloating but despite such has good appetite, no nausea, no emesis. He is passing flatus and in fact feels like he has to have a bowel movement now. When asked about his breathing he states it is doing "ok". Respiratory was able to stop his high flow NC and transition him over to standard NC yesterday. He has tolerated it since. Still with cough but perhaps it is not as severe. Problem List Medical Problems: (1) Dizziness Status: Acute (2) Elevated troponin Status: Acute (3) Hypoxia Status: Acute (4) Metastatic disease Status: Acute (5) Metastatic lung cancer (metastasis from lung to other site) Status: Acute (6) Pneumonia Status: Acute (7) Stroke Status: Acute (8) Syncope Status: Acute (9) Vasogenic brain edema Status: Acute Review of Systems Constitutional: No chills, No fever Respiratory: + cough, + dyspnea at rest (occasional), + dyspnea on exertion, + hemoptysis, + sputum, + wheezing Cardiac: No chest pain Abdomen: + pain, + see HPI Objective Vital Signs Date Time Temp Pulse Resp B/P Pulse Ox O2 Delivery O2 Flow Rate FiO2 08/14/16 22:00 Nasal Cannula 4.0 08/14/16 20:31 36.5 108 18 135/86 95 Nasal Cannula 4.0 08/14/16 16:00 Nasal Cannula 4.0 08/14/16 15:29 111 18 94 Nasal Cannula 5.0 08/14/16 14:52 36.6 101 20 124/75 96 4.0 08/14/16 11:54 100 18 93 Nasal Cannula 4.0 08/14/16 11:22 36.3 94 24 141/85 93 Nasal Cannula 4.0 08/14/16 08:00 Nasal Cannula 4.0 08/14/16 07:07 36.5 109 18 149/87 94 Nasal Cannula 4.0 08/14/16 07:04 99 18 93 Nasal Cannula 4.0 08/14/16 03:39 36.7 115 20 137/82 92 4.0 08/14/16 02:59 103 18 96 Nasal Cannula 4.0 08/14/16 00:18 Nasal Cannula 4.0 08/13/16 23:42 36.8 116 20 134/84 93 4.0 Physical Exam General Appearance: no apparent distress ENT: pharynx normal (thrush resolved) Neck: no JVD Respiratory/Chest: no respiratory distress, no accessory muscle use, + crackles (right lung, extensive, nearly all the way up the back; left base with crackles (mild)), + wheezing Cardiovascular: no gallop, no murmur, + tachycardia Abdomen: normal bowel sounds, no organomegaly, + distended, + tenderness ( upper abdomen) Extremities: + pedal edema (left ankle), + swelling (left leg - 3+) Neurologic/Psychiatric: alert, oriented x 3 Skin: + pertinent finding (petechiae on arms, chest) Laboratory Results Last 24 Hours Test 08/14/16 07:24 08/14/16 11:18 08/14/16 16:20 08/14/16 20:25 Bedside Glucose 288 mg/dl 211 mg/dl 193 mg/dl 162 mg/dl Assessment and Plan 56yo male with: 1. acute/chronic hypoxic resp failure - acute component 2nd to severe COPD, PEs , possible post-obstructive pneumonia, and worsening lung ca. Weaned HFNC to standard NC overnight. He will remain on NC O2 at discharge. 2. extensive PEs with DVTs with recent coumadin failure, s/p IVC filter. Deemed not a lovenox candidate due to low platelets, etc. 3. hemoptysis 2nd to stage 4 lung ca, PEs, etc - likely to be ongoing. 4. possible gram negative pneumonia - completed full 7 days of Rx. 5. thrush - improved/resolved; continue diflucan for 10 days. Today is day # 6. 6. uncontrolled T2DM - adjust lantus to 15 units BID. Adjust novolog once again. 7. acute kidney injury - resolved 8. COPD with exacerbation - on steroids TID. continue such. cont spiriva. cont nebs. At discharge would continue steroids TID and wean very slowly over 1 -2 weeks. 9. gastric distension - due to gastroparesis? motility issues from narcotics? other? consider simethicone. consider reglan. would not perform CT at this time. 10. thrombocytopenia - ongoing - 2nd to cancer. CBC in am. 11. right chest pain - due to cancer, PEs, etc - fentanyl patch 12mcg q3d and morphine elixir q3h prn with improvement 12. possible depression - consider anti-depressant will recommend hospice/palliative care upon return to residential very, very poor prognosis today he surprisingly asked about "seeing Dr. Baker about getting back on my treatment" (chemotherapy) he is a very poor candidate for such will ask Dr. Baker to see him again probable d/c back to residential Monday as long as glycemic control is adequate Continued [facility] stay due to: multiple IV medications needed, other Discharge planning: other (residential)
[2016-08-15] MEDS: BENZONATATE 100MG CAP PO PRN ×2 (00:48→13:57)
[2016-08-15 04:41] VITALS: BP 158/90; PULSE 92; TEMP 36.4; O2SAT 92
[2016-08-15 05:55] LABS: HEMATOCRIT 30.5 % (42-52); MEAN CELL VOLUME 88.9 fL (80-100); MEAN CORPUSCULAR HEMOGLOBIN 28.9 pg (25-34); MEAN CORPUSCULAR HGB CONC 32.5 g/dl (32-36); RED BLOOD COUNT 3.43 M/uL (4.7-6.1); WHITE BLOOD COUNT 20.69 K/uL (4.8-10.8)
[2016-08-15 05:56] LABS: MEAN PLATELET VOLUME 9.9 fL (7.4-10.4); PLATELET COUNT 88 K/uL (130-400)
[2016-08-15 06:35] LABS: BUN/CREATININE RATIO 33.8 (10-20); CALCIUM 8.3 mg/dl (8.5-10.1); CREATININE 0.74 mg/dl (0.60-1.40); POTASSIUM 3.6 mmol/L (3.5-5.1)
[2016-08-15] MEDS: ALBUT/IPRATROP 3MG/0.5MG NEB 3 ML VIAL INH SCH ×3 (07:14→15:43)
[2016-08-15 07:17] VITALS: PULSE 92; O2SAT 93
[2016-08-15] MEDS ORDERED: INSULIN GLARGINE SOLOSTAR 100 UNITS/ML 3 ML PEN SC SCH (08:00)
[2016-08-15 08:09] VITALS: BP 146/78; PULSE 109; TEMP 36.3; O2SAT 97
[2016-08-15] MEDS: BOOST GLUCOSE CONTROL PO SCH ×2 (09:00→13:00)
[2016-08-15] MEDS: INSULIN ASPART 100 UNITS/ML 3 ML PEN SC SCH ×2 (09:19→13:11)
[2016-08-15] MEDS: BUDESONIDE/FORMOTEROL FUMARATE 160/4.5 60 PUFFS/INHALER INH SCH (09:23)
[2016-08-15] MEDS: CHECK FENTANYL PATCH PLACEMENT SCH (09:24)
[2016-08-15] MEDS: DEXAMETHASONE 4 MG TAB PO SCH ×2 (09:24→13:57)
[2016-08-15] MEDS: FLUCONAZOLE 100 MG TAB PO SCH (09:25)
[2016-08-15] MEDS: POT PHOSPHATE MONOBASIC W/ SOD TAB PO SCH ×2 (09:37→13:15)
[2016-08-15] MEDS: BISACODYL 5 MG TABEC PO SCH (09:37)
[2016-08-15] MEDS: PANTOprazole SOD 40 MG TAB PO SCH (09:39)
[2016-08-15] MEDS: ACETAMINOPHEN 325 MG TAB PO SCH ×2 (09:39→14:00)
[2016-08-15] MEDS: SIMETHICONE 80 MG CHEW PO PRN (09:41)
[2016-08-15 11:00] VITALS: PULSE 112; O2SAT 96
[2016-08-15] MEDS ORDERED: DRGTP12 TD (11:27)
[2016-08-15] MEDS ORDERED: RXNS5 PO (11:27)
[2016-08-15] MEDS ORDERED: INSDGIPEN SC (11:27)
[2016-08-15] MEDS ORDERED: SYMIN INH (11:27)
--- NOTE | 2016-08-15 11:34 | Discharge Instructions ---
Discharge Instructions Date of Service Aug 15, 2016. Admission Reason for Admission: Hypoxia, Malignant Neoplasm Of Bronchus And Lung Discharge Discharge Diagnosis / Problem: Stage IV lung cancer, pulmonary embolis, acute on chronic hypoxia Discharge Goals Goal(s): Decrease discomfort, Specific goals (comfort) Activity Recommendations Activity Limitations: resume your previous activity Lifting Limitations: none Exercise/Sports Limitations: as tolerated Shower/Bathe: no limitations . Instructions / Follow-Up Instructions / Follow-Up Medications: - FENTANYL: 12mcg patch added for pain control, could increase to 25mcg in the near future if pain gets worse - MORPHINE: use every 3 hours as needed for pain control, pain is due to malignancy and pulmonary emboli - LANTUS: twice a day at 15 units, tolerated well, please note that in the future if he eats less then should cut the dose in half or if he goes off of steroids the Lantus could be stopped - LIPITOR: stopped, not essential medication now that patient's comfort is goal - COUMADIN: stopped because he had DVT and PE despite therapeutic dose of Coumadin, IVC filter was placed Overall poor prognosis, oncology feels that he has 2-3 months to live. Palliative care recommends hospice care once back at assisted. Patient's goal is to live until November so he can be released to family. Perhaps his release could be moved up since he has such little time to live. Would request family visitation soon since his prognosis is so poor and he could deteriorate rapidly. FOLLOW UP - physician at [facility] this week - Dr. Baker (oncology) in two weeks for follow up and Opdivo therapy Current Hospital Diet Patient's current hospital diet: Diabetes Type 2 Diet Discharge Diet Recommended Diet: Diabetes Type 2 Diet Procedures Procedures Performed: Insertion of IVC filter, femoral approach Pending Studies Studies pending at discharge: no Laboratory Results Hemoglobin A1c Test 08/07/16 15:10 Range/Units Estimated Average Glucose 189 mg/dl Hemoglobin A1c 8.2 H 4.5-5.6 % Lipid Panel Test 06/11/16 06:05 Range/Units Triglycerides Level 177 H 0-150 mg/dl Cholesterol Level 197 0-200 mg/dl HDL Cholesterol 69 mg/dl Cholesterol/HDL Ratio 2.9 LDL Cholesterol, Calculated 93 mg/dl Medical Emergencies . Who to Call and When: Medical Emergencies: If at any time you feel your situation is an emergency, please call 911 immediately. . Non-Emergent Contact Non-Emergency issues call your: Primary Care Provider Call Non-Emergent contact if: your pain is worsening, you have any medication questions . . "Provider Documentation" section prepared by Jonas Muller. VTE Core Measure Inpt VTE Proph given/why not?: Treatment not indicated (IVC filter) [place] Drug Monitoring Program Search Results: no issues identified
[2016-08-15 11:44] VITALS: BP 134/79; PULSE 120; TEMP 36.2; O2SAT 92
[2016-08-15 13:34] VITALS: BP 134/79; PULSE 120; TEMP 36.2; O2SAT 92
--- NOTE | 2016-08-17 07:47 | Discharge Summary ---
Discharge Summary Date of Service Aug 17, 2016. Discharge Summary Admission Date: Aug 07, 2016 at 17:13 Discharge Date: Aug 15, 2016 Discharge Disposition: Home ([facility]) Principal Diagnosis: Acute hypoxic respiratory failure Problems/Secondary Diagnoses: Pulmonary embolism, failed Coumadin Pneumonia Lung cancer, stage IV Thrush Thrombocytopenia Chronic pain from malignancy Acute kidney injury Immunizations: Have You Had Influenza Vaccine: Yes History of Tetanus Vaccine?: Unknown History of Pneumococcal: No History of Hepatitis B Vaccine: No Procedures: IVC filter placement 08/09 Consultations: Vascular surgery Oncology Medication Reconciliation New Medications: Budesonide/Formoterol Fumarate (Symbicort 160-4.5 Mcg/Act) 60 Puffs/Inhaler Aero 2 PUFFS INH BID, #1 INHALER 3 Refills Fentanyl (Fentanyl) 12 Mcg Tdsy 12 MCG TD Q3D@0900, #10 PATCH 0 Refills Insulin Glargine (Lantus Solostar) 100 Unit/Ml Inj 15 UNIT SC BID, #1 BOX 3 Refills Morphine Sulfate (Morphine Sulfate) 5 Mg/0.25 Ml Soln 5 MG PO Q3H PRN for Pain or shortness of breath, #50 ML 0 Refills Continued Medications: Acetaminophen (Tylenol) 325 Mg Tab 650 MG PO TID, TAB Albuterol Hfa (Ventolin Hfa) 200 Puffs/80662 Mcg Aers 2 PUFFS INH QID PRN for Shortness of Breath, #1 INHALER Benzonatate (Tessalon Perles) 100 Mg Cap 100 MG PO TID PRN for Cough, CAP Dexamethasone (Decadron) 4 Mg Tab 6 MG PO BID, TAB Ipratropium-Albuterol (Duoneb) 3 Ml Nebu 1 TREATMENT INH QID PRN for Shortness of Breath, INHA Nutritional Supplements (Boost) 1 Liq Liq 1 BTL PO PC Omeprazole (Prilosec) 40 Mg Cap 40 MG PO DAILY, CAP Ondansetron Hcl (Zofran) 4 Mg Tab 8 MG PO BID PRN for Nausea or Vomiting, TAB Oxygen (Oxygen) Gas 2 LITERS NA UD Tramadol (Ultram) 50 Mg Tab 50 MG PO BID PRN for Pain, TAB Triamcinolone Acet (Triamcinolone Acetonide) 45 Appln/15 Gm Oint 1 APPLN TOP TID for 30 Days, #454 GM apply sparingly to scalp Discontinued Medications: Atorvastatin (Lipitor) 40 Mg Tab 40 MG PO HS, TAB Warfarin Sod (Jantoven) 3 Mg Tab 1.5 MG PO DAILY, TAB Discharge Exam Patient complaining of right sided chest pain on day of discharge, stating that narcotics helping but not completely alleviating pain. Explained that we could not get rid of all the pain. He wanted to discuss the IVC filter and reason for no anticoagulation. I explained to him in detail but he wanted to talk with oncology directly. He admitted to shortness of breath, stable though. Eating okay. Moving bowels. Discussed that plans would be to follow up with Dr. Baker in a few weeks for Opdivo treatment. Review of Systems: Constitutional: + fatigue, + weakness, No chills, No fever, No problem reported, No sweats, No weight loss Eyes: No diplopia, No discharge, No eye pain, No problem reported, No redness, No worsening of vision ENT: No dental problems, No hearing loss, No nasal symptoms, No problem reported, No sore throat, No tinnitus, No trouble swallowing, No unusual epistaxis Respiratory: + dyspnea at rest, + dyspnea on exertion, + shortness of breath , No cough, No hemoptysis, No sputum, No wheezing Cardiovascular: + chest pain (right sided), No PND, No claudication, No edema, No orthopnea, No palpitations, No problem reported Abdomen: + problem reported (distension), No constipation, No diarrhea, No nausea, No pain, No vomiting Musculoskeletal: No calf pain, No joint pain, No muscle pain, No problem reported, No swelling Genitourinary - Male: No dysuria, No hematuria, No urinary frequency, No urinary urgency Neurologic: + balance problems, + weakness, No memory loss, No numbness/ tingling, No paralysis, No problem reported, No vertigo Psychiatric: + depression symptoms, No anhedonism, No anxiety, No insomnia, No problem reported, No substance abuse Endocrine: No excessive thirst, No excessive urination, No fatigue, No problem reported Hematologic / Lymphatic: No abnormal bleeding/bruising, No clotting problems , No night sweats, No problem reported, No swollen lymph nodes Integumentary: No bleeding, No color change, No itch, No new/changing skin lesions, No problem reported, No rash Physical Exam: General Appearance: no apparent distress, + thin Eyes: normal inspection, EOMI, sclerae normal ENT: normal ENT inspection, hearing grossly normal, pharynx normal Neck: supple, no adenopathy, no JVD, trachea midline Respiratory/Chest: chest non-tender, normal breath sounds, no respiratory distress, no accessory muscle use, + rhonchi (scattered, clear with cough) Cardiovascular: regular rate, rhythm, no edema, no gallop, no JVD, no murmur , normal peripheral pulses Abdomen / GI: normal bowel sounds, non tender, soft (distended), no organomegaly Extremities: normal inspection, no calf tenderness, normal capillary refill , no pedal edema, normal range of motion, pelvis stable Neurologic/Psychiatric: client service professional II-XII nml as tested, no motor/sensory deficits , alert, normal mood/affect, normal reflexes, oriented x 3 Skin: normal color, warm/dry, no rash Lymphatic: no adenopathy Hospital Course 56yo male with metastatic lung cancer, mets to brain, local disease spread. Presented with acute on chronic hypoxia, found to have PE's despite being on Coumadin. Had IVC filter placed and Coumadin discontinued. Also treated for pneumonia and COPD with antibiotics, steroids, nebulizers. Breathing improved over the course of a week. C/o lots of right sided chest pain, likely multifactorial with the PE's, lung cancer. Treated with Fentanyl patch and morphine elixir. Should be made hospice on discharge at [facility], will follow up with Dr. Baker in 2 weeks. 1. acute/chronic hypoxic resp failure - acute component 2nd to severe COPD, PEs , possible post-obstructive pneumonia, and worsening lung ca. Weaned HFNC to standard NC overnight. He will remain on NC O2 at discharge. 2. extensive PEs with DVTs with recent coumadin failure, s/p IVC filter. Deemed not a lovenox candidate due to low platelets, etc. 3. hemoptysis 2nd to stage 4 lung ca, PEs, etc - resolved currently but could happen again with malignancy and PE's 4. possible gram negative pneumonia - completed full 7 days of antibiotics, he is afebrile, WBC normal, minimal productive cough 5. thrush - resolved; treated with Diflucan for 7 days, no further treatment 6. uncontrolled T2DM - adjust lantus to 15 units BID. continue this dose on discharge, could decrease Lantus in the future if Decadron dose is decreased 7. acute kidney injury - resolved with supportive care 8. COPD with exacerbation - on Decadron for brain mets already. continue such. cont spiriva. cont nebs 9. gastric distension - due to gastroparesis? motility issues from narcotics? other? consider simethicone. consider reglan. would not perform CT at this time. 10. thrombocytopenia - ongoing - 2nd to cancer. stable in the 70's, no Lovenox due to such 11. right chest pain - due to cancer, PEs, etc - fentanyl patch 12mcg q3d and morphine elixir q3h prn with improvement if pain is difficult to control, would increase fentanyl patch to 25mcg and titrate upward as needed 12. possible depression - consider anti-depressant in near future 13. stage IV lung cancer, brain mets - currently on Opdivo with Dr. Baker as just a palliative measure. He has 2-3 months to live at best. His goal is to live until November so he can be released to family. Would schedule any family visits soon since his prognosis is very poor and he could deteriorate quickly. will recommend hospice/palliative care upon return to [facility] very, very poor prognosis Total Time Spent: Greater than 30 minutes This includes examination of the patient, discharge planning, medication reconciliation, and communication with other providers. Discharge Instructions Please refer to the electronic Patient Visit Report (Discharge Instructions) for additional information. Follow-Up Physician at [facility] Rima Baker in 2 weeks Additional Copies To Richard Baker D.O.; Rima DOOLEY
== END 2016-08-15 15:45 | disposition home or self-care (01) | DRG 166 ==
LOC: ENRESERVTM → ENRESERVDT → EDBD 13:44 → C.EDC 13:51 → C.2E 17:13 → C.4E 08-12 16:55
PROVIDERS: ADMIT Hospitalist; ATTEND Internal Medicine
PROC: 06H03DZ Insertion of Intraluminal Device into Inferior Vena Cava, Percutaneous Approach (ICD-10-PCS; principal; 2016-08-09 10:00)
DX: J96.21 Acute and chronic respiratory failure with hypoxia (principal); I26.99 Other pulmonary embolism without acute cor pulmonale; J15.6 Pneumonia due to other Gram-negative bacteria; C34.90 Malignant neoplasm of unspecified part of unspecified bronchus or lung; C79.31 Secondary malignant neoplasm of brain; N17.9 Acute kidney failure, unspecified; I82.422 Acute embolism and thrombosis of left iliac vein; J44.1 Chronic obstructive pulmonary disease with (acute) exacerbation; B37.0 Candidal stomatitis; I24.8 Other forms of acute ischemic heart disease; Z79.01 Long term (current) use of anticoagulants; G89.3 Neoplasm related pain (acute) (chronic); B37.9 Candidiasis, unspecified; E11.9 Type 2 diabetes mellitus without complications; K31.89 Other diseases of stomach and duodenum; Z51.5 Encounter for palliative care; Z66 Do not resuscitate; Z83.3 Family history of diabetes mellitus; R79.1 Abnormal coagulation profile; Z87.891 Personal history of nicotine dependence; Z86.73 Personal history of transient ischemic attack (TIA), and cerebral infarction without residual deficits; M25.572 Pain in left ankle and joints of left foot; D69.6 Thrombocytopenia, unspecified; T45.515A Adverse effect of anticoagulants, initial encounter

== ENCOUNTER → 2016-09-02 | Day surgery (SDC) | payer OTHER ==
[~2016-09-02] VITALS: Ht 154.9 cm; Wt 55.0 kg
[~2016-09-02] MED LIST changes: +CHECK FENTANYL; -CMD5 PO; +DRGTP12 TD; +DXM/4 PO; -DXM4 PO; -HYDR2.5L TOP; +INSDGIPEN SC; +INSHRIE SC; +INSU1INJ SC; -IPRASOL4 NEB; -LPT40 PO; -LVNIS60 SQ; +NUTR-7 PO; +OMEP40CA41 PO; +RXNS20 PO; +RXNS5 PO; +SYMIN INH; +TRMO115 TOP; +VNTHFA/IN INH
[2016-09-02 10:48] VITALS: BP 155/85; PULSE 110; TEMP 37.1; O2SAT 94; Ht 154.9 cm; Wt 55.0 kg
[2016-09-02 11:28] VITALS: BP 122/75; PULSE 110; TEMP 37; O2SAT 94
[2016-09-02 11:41] VITALS: BP 130/80; PULSE 118; TEMP 37; O2SAT 94
[2016-09-02 11:54] VITALS: BP 146/76; PULSE 117; TEMP 36.8; O2SAT 94
== END | disposition home or self-care (01) ==
LOC: C.MTU 10:46
PROVIDERS: ATTEND Internal Medicine Hematology & Oncology
DX: C34.11 Malignant neoplasm of upper lobe, right bronchus or lung (principal)

== ENCOUNTER 2016-09-07 22:43 | Inpatient (IN) | payer OTHER ==
[~2016-09-07] VITALS: Ht 152.4 cm; Wt 55.9 kg
[~2016-09-07 22:43] MED LIST changes: -CHECK FENTANYL; -INSHRIE SC; -INSU1INJ SC; -RXNS20 PO
[2016-09-07] MEDS ORDERED: INSHRIE SC (23:08)
[2016-09-07] MEDS ORDERED: INSU1INJ SC (23:08)
[2016-09-07] MEDS ORDERED: RXNS20 PO (23:08)
--- NOTE | 2016-09-07 23:19 | EMERGENCY ROOM VISIT NOTE ---
History Report prepared by Mauroibarmida: Linden Mendoza Under the Supervision of: Dr. Dutch Mello D.O. First contact with patient: 23:09 Chief Complaint: SHORTNESS OF BREATH Stated Complaint: SOB Nursing Triage Summary: Pt arrived via [facility] EMS from [facility]. Per EMS, pt has Stage 4 Lung CA. Wears 4L oxygen all the time. Tonight pt complaining of increased SOB. 2 breathing tx at [facility] and morphine without relief of SOB. Pt requesting to come to hospital for evaluation. Upon arrival pt is SOB. Taking breath between each word when speaking. Reports this SOB is worse than his normal. +3 pitting edema to feet and lower legs. Pt states he does typically have edema but it is "bad tonight". History of Present Illness The patient is a 56 year old male who presents to the Emergency Room with complaints of persistent shortness of breath that started earlier this afternoon. He also his increased swelling of the lower extremities and has been coughing up blood for the past two days. He denies any fevers. The patient has a history of Stage IV Lung Cancer. He has been hospitalized with these symptoms before. He wears 4L of oxygen all the time. The patient is a prisoner at [facility]. Source of History: patient Onset: this afternoon Position: other (respiratory) Quality: other (short of breath) Timing: other (persistent) Associated Symptoms: + cough, No fevers Review of Systems See HPI for pertinent positives and negatives. A total of ten systems were reviewed and were otherwise negative. Past Medical & Surgical Medical Problems: (1) Chest pain (2) Malignant neoplasm of bronchus and lung, unspecified site (3) Metastatic cancer to brain (4) Pulmonary embolism (5) Solitary Pulmonary Nodule Family History Diabetes mellitus FATHER Social History Smoking Status: Former Smoker Drug Use: none Marital Status: single Housing Status: other Occupation Status: other Current/Historical Medications Scheduled Acetaminophen (Tylenol), 650 MG PO TID Budesonide/Formoterol Fumarate (Symbicort 160-4.5 Mcg/Act), 2 PUFFS INH BID Dexamethasone (Decadron), 6 MG PO BID Fentanyl (Fentanyl), 12 MCG TD Q3D@0900 Insulin Human Regular (Humulin R), UNITS SC UD Insulin Isophan/Regular (Humulin 70/30), 10 UNITS SC BID Nutritional Supplements (Boost), 1 BTL PO PC Omeprazole (Prilosec), 40 MG PO DAILY Oxygen (Oxygen), 2 LITERS NA UD Triamcinolone Acet (Triamcinolone Acetonide), 1 APPLN TOP TID Scheduled PRN Albuterol Hfa (Ventolin Hfa), 2 PUFFS INH QID PRN for Shortness of Breath Benzonatate (Tessalon Perles), 100 MG PO TID PRN for Cough Ipratropium-Albuterol (Duoneb), 1 TREATMENT INH QID PRN for Shortness of Breath Morphine Sulfate (Morphine Sulfate), 10 MG PO Q3H PRN for Pain Ondansetron Hcl (Zofran), 8 MG PO BID PRN for Nausea or Vomiting Tramadol (Ultram), 50 MG PO BID PRN for Pain Allergies Coded Allergies: Talc (Verified Allergy, Severe, SOB - Baby Powder, 09/02/16) Nafcillin (Verified Allergy, Unknown, sob,n/v, 09/02/16) Penicillins (Verified Allergy, Unknown, SHORTNESS OF BREATH, 09/02/16) Physical Exam Vital Signs Date Time Temp Pulse Resp B/P Pulse Ox O2 Delivery O2 Flow Rate FiO2 09/07/16 23:30 153/81 09/07/16 23:13 112 34 92 Nasal Cannula 6.0 09/07/16 23:10 92 Nasal Cannula 6.0 09/07/16 23:10 92 Nasal Cannula 6.0 09/07/16 23:08 30 90 Nasal Cannula 4.0 09/07/16 23:00 151/90 09/07/16 22:55 120 09/07/16 22:53 148/84 09/07/16 22:43 36.7 120 27 148/84 92 Nasal Cannula 4.0 09/07/16 22:43 92 Nasal Cannula 4.0 09/07/16 22:43 92 Nasal Cannula 4.0 09/07/16 22:43 92 Nasal Cannula 4.0 Physical Exam GENERAL: Awake, alert, well-appearing, in no distress HENT: Normocephalic, atraumatic. Oropharynx unremarkable. EYES: Normal conjunctiva. Sclera non-icteric. NECK: Supple. No nuchal rigidity. FROM. No JVD. RESPIRATORY: Crackles noted bilaterally. Mild respiratory distress. CARDIAC: Tachycardic, normal rhythm. Extremities warm and well perfused. Pulses equal. ABDOMEN: Soft, non-distended. No tenderness to palpation. No rebound or guarding. No masses. RECTAL: Deferred. MUSCULOSKELETAL: Chest examination reveals no tenderness. The back is symmetrical on inspection without obvious abnormality. There is no CVA tenderness to palpation. No joint edema. LOWER EXTREMITIES: Calves are equal size bilaterally and non-tender. Pitting edema bilaterally. No discoloration. NEURO: Normal sensorium. No sensory or motor deficits noted. SKIN: No rash or jaundice noted. Medical Decision & Procedures ER Provider Diagnostic Interpretation: X-ray: Per my interpretation. Chest One View Portable: Bilateral lower lobe infiltrates. There is a very large right lower / middle lobe mass. Laboratory Results 09/07/16 23:10 Red Blood Count 3.66, Mean Corpuscular Volume 93.7, Mean Corpuscular Hemoglobin 30.3, Mean Corpuscular Hemoglobin Concent 32.4, Neutrophils (%) (Auto) 88.8, Lymphocytes (%) (Auto) 5.1, Monocytes (%) (Auto) 3.2, Eosinophils (%) (Auto) 0.0 , Basophils (%) (Auto) 0.1, Neutrophils # (Auto) 12.57, Lymphocytes # (Auto) 0.72, Monocytes # (Auto) 0.46, Eosinophils # (Auto) 0.00, Basophils # (Auto) 0.02 09/07/16 23:10 Test 09/07/16 23:10 09/07/16 23:16 09/07/16 23:50 White Blood Count 14.17 K/uL (4.8-10.8) Red Blood Count 3.66 M/uL (4.7-6.1) Hemoglobin 11.1 g/dL (14.0-18.0) Hematocrit 34.3 % (42-52) Mean Corpuscular Volume 93.7 fL (80-100) Mean Corpuscular Hemoglobin 30.3 pg (25-34) Mean Corpuscular Hemoglobin Concent 32.4 g/dl (32-36) Platelet Count 17 K/uL (130-400) Neutrophils (%) (Auto) 88.8 % Lymphocytes (%) (Auto) 5.1 % Monocytes (%) (Auto) 3.2 % Eosinophils (%) (Auto) 0.0 % Basophils (%) (Auto) 0.1 % Neutrophils # (Auto) 12.57 K/uL (1.4-6.5) Lymphocytes # (Auto) 0.72 K/uL (1.2-3.4) Monocytes # (Auto) 0.46 K/uL (0.11-0.59) Eosinophils # (Auto) 0.00 K/uL (0-0.5) Basophils # (Auto) 0.02 K/uL (0-0.2) RDW Standard Deviation 59.0 fL (36.4-46.3) RDW Coefficient of Variation 17.3 % (11.5-14.5) Immature Granulocyte % (Auto) 2.8 % Immature Granulocyte # (Auto) 0.40 K/uL (0.00-0.02) Nucleated RBC Absolute Count (auto) 0.27 K/uL (0-0) Nucleated Red Blood Cells % 1.9 % Hypersegmented Polys 1+ Platelet Estimate SIGNIFIC DECREASED Tear Drop Cells 1+ Anion Gap 6.0 mmol/L (3-11) Est Creatinine Clear Calc Drug Dose 89.4 ml/min Estimated GFR () 126.1 Estimated GFR (Non- 108.8 BUN/Creatinine Ratio 33.1 (10-20) Calcium Level 8.7 mg/dl (8.5-10.1) Total Bilirubin 0.4 mg/dl (0.2-1) Aspartate Amino Transf (AST/SGOT) 46 U/L (15-37) Alanine Aminotransferase (ALT/SGPT) 70 U/L (12-78) Alkaline Phosphatase 152 U/L (45-117) Pro-B-Type Natriuretic Peptide 4494 pg/ml (0-900) Total Protein 5.9 gm/dl (6.4-8.2) Albumin 2.6 gm/dl (3.4-5.0) Globulin 3.3 gm/dl (2.5-4.0) Albumin/Globulin Ratio 0.8 (0.9-2) Bedside Troponin I 1.700 ng/ml (0-0.045) Urine Color YELLOW Urine Appearance CLEAR (CLEAR) Urine pH 7.0 (4.5-7.5) Urine Specific [place] 1.014 (1.000-1.030) Urine Protein 2+ (NEG) Urine Glucose (UA) 1+ (NEG) Urine Ketones NEG (NEG) Urine Occult Blood TRACE (NEG) Urine Nitrite NEG (NEG) Urine Bilirubin NEG (NEG) Urine Urobilinogen NEG (NEG) Urine Leukocyte Esterase NEG (NEG) Urine WBC (Auto) 0 /hpf (0-5) Urine RBC (Auto) 0-4 /hpf (0-4) Urine Hyaline Casts (Auto) 1-5 /lpf (0-5) Urine Epithelial Cells (Auto) 0-5 /lpf (0-5) Urine Bacteria (Auto) NEG (NEG) Laboratory results reviewed by me Medications Administered Medications (Trade) Dose Ordered Sig/Jevon Route Start Time Stop Time Status Last Admin Dose Admin Furosemide (Lasix Inj) 40 mg NOW STAT IV 09/07/16 23:20 09/07/16 23:22 DC 09/07/16 23:28 40 MG Levofloxacin (Levaquin / D5W) 750 mg NOW ONCE IV 09/08/16 00:00 09/08/16 00:01 DC 09/08/16 00:21 750 MG Aspirin (Aspirin Chew) 81 mg NOW STAT PO 09/08/16 00:07 09/08/16 00:09 DC 09/08/16 00:36 81 MG Aspirin (Aspirin Chew) 81 mg NOW STAT PO 09/08/16 00:07 09/08/16 00:09 DC 09/08/16 00:36 81 MG Nitroglycerin (Nitroglycerin 2% Oint) 1 inch NOW ONCE EXT 09/08/16 00:15 09/08/16 00:16 DC 09/08/16 00:37 1 INCH ECG Indication: SOB/dyspnea Rate (beats per minute): 120 Rhythm: sinus tachycardia Findings: no acute ischemic change, other (LVH, normal axis) ED Course 2300: The patient was evaluated in room B7. A complete history and physical exam was performed. 2320: Lasix 40 mg IV. 0000: Levofloxacin 750 mg IV. 0007: Aspirin 81 mg PO, Aspirin 81 mg PO. 0015: Nitroglycerin 1 inch EXT. 0030: The patient will be evaluated by Dr. Cotter, [facility]. Medical Decision Differential diagnosis includes CHF, lung cancer exacerbation, pneumonia, pulmonary edema, cardiac event. Patient with a lung cancer history clearly has lower edema of his extremities. Patient is in mild respiratory distress but is alert patient has a positive troponin patient's chest x-ray shows a right lung mass as well as congestive heart failure. Patient was started on Lasix and also empirically on Levaquin. Patient was also given aspirin and Nitropaste. Patient will be admitted for acute coronary syndrome congestive heart failure and lung mass. Case was discussed with the hospitalist for admission Impression Primary Impression: Congestive heart failure Additional Impression: Acute coronary syndrome Critical Care I have personally spent greater than 35 minutes of critical care time in the direct management of this patient. This includes bedside care, interpretation of diagnostic studies, and testing, discussion with consultants, patient, and family members, and other required patient management activities. This [35 ] minutes is in excess of all separately billable procedures. Scribe Attestation The scribe's documentation has been prepared under my direction and personally reviewed by me in its entirety. I confirm that the note above accurately reflects all work, treatment, procedures, and medical decision making performed by me. Departure Information Dispostion Being Evaluated By Hospitalist Referrals Rima DOOLEY (PCP) Patient Instructions My [facility] Problem Qualifiers Primary Impression: Congestive heart failure Congestive heart failure type: unspecified congestive heart failure type Congestive heart failure chronicity: acute Qualified Codes: I50.9 - Heart failure, unspecified
[2016-09-07] MEDS ORDERED: FUROSEMIDE 40 MG/4 ML VIAL IV STA (23:20)
[2016-09-07 23:54] LABS: ALB/GLOB RATIO 0.8 (0.9-2); BUN/CREATININE RATIO 33.1 (10-20); CALCIUM 8.7 mg/dl (8.5-10.1); CREATININE 0.66 mg/dl (0.60-1.40)
[2016-09-08] VITALS (15 sets, daily range): BP systolic 114–159; BP diastolic 76–105; PULSE 102–121; TEMP 36.3–36.5; O2SAT 92–97; Ht 152.4 cm; Wt 55.9 kg
[2016-09-08] MEDS ORDERED: LEVAQUIN 750MG / 150ML D5W IV ONE
[2016-09-08] MEDS ORDERED: ASPIRIN 81 MG CHEW PO STA ×2 (00:07)
[2016-09-08] MEDS ORDERED: NITROGLYCERIN OINT 2% 1GM PACKET EXT ONE (00:15)
[2016-09-08 00:16] LABS: HEMATOCRIT 34.3 % (42-52); MEAN CELL VOLUME 93.7 fL (80-100); MEAN CORPUSCULAR HEMOGLOBIN 30.3 pg (25-34); MEAN CORPUSCULAR HGB CONC 32.4 g/dl (32-36); PLATELET COUNT 17 K/uL (130-400); RED BLOOD COUNT 3.66 M/uL (4.7-6.1); WHITE BLOOD COUNT 14.17 K/uL (4.8-10.8)
[2016-09-08 00:17] LABS: BASO % 0.1 %; BASO ABS # 0.02 K/uL (0-0.2); COMPLETE YES; HYPERSEGMENTED POLYS 1+; IG% 2.8 %; LYMPH % 5.1 %; LYMPH ABS # 0.72 K/uL (1.2-3.4); MONO % 3.2 %; NEUT % 88.8 %; PLT ESTIMATE SIGNIFIC DECREASED; TEAR DROP CELLS 1+
[2016-09-08 00:19] LABS: MANUAL MICROSCOPIC REQUIRED? NO; REVIEW REQ? NO; URINE APPEARANCE CLEAR (CLEAR); URINE BILIRUBIN NEG (NEG); URINE COLOR YELLOW; URINE EPITHELIAL CELL AUTO 0-5 /lpf (0-5); URINE NITRITE NEG (NEG); URINE SPECIFIC GRAVITY 1.014 (1.000-1.030); UROBILINOGEN NEG (NEG)
[2016-09-08] MEDS ORDERED: ALUMINUM/MAGNESIUM/SIMETH (MAALOX MAX) 30 ML UDC PO PRN (01:45)
[2016-09-08] MEDS ORDERED: POLYETHYLENE (MIRALAX) 17 GM PACK PO PRN (01:45)
[2016-09-08] MEDS ORDERED: MAGNESIUM HYDROXIDE SUSP 30 ML UDC PO PRN (01:45)
[2016-09-08] MEDS ORDERED: ONDANSETRON INJ 2 MG/ML 2 ML VIAL IV PRN (01:45)
[2016-09-08] MEDS ORDERED: ACETAMINOPHEN 325 MG TAB PO PRN (01:45)
[2016-09-08] MEDS ORDERED: ALBUTEROL HFA 8 GM INHALER INH PRN (02:00)
[2016-09-08] MEDS ORDERED: OPTIRAY 320 IV PRN (02:00)
[2016-09-08] MEDS ORDERED: MoRPHine SULFATE 10 MG/0.5 ML UDP PO PRN (02:00)
[2016-09-08] MEDS ORDERED: ONDANSETRON 4 MG TAB PO PRN (02:00)
[2016-09-08] MEDS ORDERED: BENZONATATE 100MG CAP PO PRN (02:00)
[2016-09-08] MEDS ORDERED: TRAMADOL HCL 50 MG TAB PO PRN (02:00)
--- NOTE | 2016-09-08 03:33 | History and Physical ---
History & Physical Date & Time of Service: Sep 08, 2016 at 03:14 Chief Complaint: SOB Primary Care Physician: Rima DOOLEY History of Present Illness Source: patient The patient's 56-year-old male inmate, with stage IV non-small cell carcinoma of the lung, with a history of DVT, PE and Coumadin failure, who presents with acute shortness of breath for the past 1 day. The shortness of breath started suddenly this morning, while he was at rest. He also states that he feels constantly wheezy. He is also coughing up blood. States that this morning he woke up and suddenly felt short of breath. He also states that he is having a combination of midsternal and right anterior chest pain, 6 out of 10 described as "pressure and achy". He does state that the pain radiates to the back. There are no alleviating or exacerbating symptoms. The pain is constant. It is worsened by deep breathing and with any kind of movement. He also states that his anterior chest wall the right side is tender. He mentions that he has felt feverish, but the care team at the present, checked his temperature and he is never had objective fevers. Also states that he feels chills and sweats in the morning. Of note, this patient was diagnosed with a deep vein thrombosis and pulmonary embolism in general 2017. He was treated as an outpatient on Coumadin, but sustained DVT recurrence and was considered to be a Coumadin failure. On arrival, Coumadin was not listed in his medicine list, and he is unsure whether he is currently supposed to be taking it or not. In regards to his current treatments for lung cancer, he is having salvage treatment with Opdivo. Past Medical/Surgical History Medical Problems: (1) Malignant neoplasm of bronchus and lung, unspecified site Permanent Comment: Weight loss and shortness of breath Abnormal chest x-ray with CT showing a right upper lobe mass Abnormal PET/CT Status post bronchoscopy and biopsy 12/10/2014 showing non-small cell lung CA Admission for postobstructive pneumonia Initially to have debilitated for combined therapy and patient declined chemotherapy Status post completion of radiation therapy 03/02/2015 received 6660 cGy Systemic chemotherapy Syncopal episode and finding of brain metastasis Status post completion of radiation therapy utilizing stereotactic therapy completed 03/10/2016 received 2100 cGy Status: Chronic (2) Solitary Pulmonary Nodule Status: Chronic Family History Diabetes mellitus FATHER Social History Smoking Status: Former Smoker Smokeless Tobacco Use: No Alcohol Use: none Drug Use: none Marital Status: single Housing status: other Occupational Status: other Immunizations History of Influenza Vaccine: Yes History of Tetanus Vaccine?: Unknown History of Pneumococcal: No History of Hepatitis B Vaccine: No Multi-Drug Resistant Organisms History of MDRO: No Allergies Coded Allergies: Talc (Verified Allergy, Severe, SOB - Baby Powder, 09/02/16) Nafcillin (Verified Allergy, Unknown, sob,n/v, 09/02/16) Penicillins (Verified Allergy, Unknown, SHORTNESS OF BREATH, 09/02/16) Home Medications Scheduled Acetaminophen (Tylenol), 650 MG PO TID Budesonide/Formoterol Fumarate (Symbicort 160-4.5 Mcg/Act), 2 PUFFS INH BID Dexamethasone (Decadron), 6 MG PO BID Fentanyl (Fentanyl), 12 MCG TD Q3D@0900 Insulin Human Regular (Humulin R), UNITS SC UD Insulin Isophan/Regular (Humulin 70/30), 10 UNITS SC BID Nutritional Supplements (Boost), 1 BTL PO PC Omeprazole (Prilosec), 40 MG PO DAILY Oxygen (Oxygen), 2 LITERS NA UD Triamcinolone Acet (Triamcinolone Acetonide), 1 APPLN TOP TID Scheduled PRN Albuterol Hfa (Ventolin Hfa), 2 PUFFS INH QID PRN for Shortness of Breath Benzonatate (Tessalon Perles), 100 MG PO TID PRN for Cough Ipratropium-Albuterol (Duoneb), 1 TREATMENT INH QID PRN for Shortness of Breath Morphine Sulfate (Morphine Sulfate), 10 MG PO Q3H PRN for Pain Ondansetron Hcl (Zofran), 8 MG PO BID PRN for Nausea or Vomiting Tramadol (Ultram), 50 MG PO BID PRN for Pain Review of Systems A 10 point review of systems was otherwise negative, unless stated above in history of present illness. Physical Exam Vital Signs Date Time Temp Pulse Resp B/P Pulse Ox O2 Delivery O2 Flow Rate FiO2 09/08/16 01:05 111 31 95 Nasal Cannula 6.0 09/08/16 01:01 137/98 09/08/16 00:35 121 26 96 Nasal Cannula 6.0 09/08/16 00:31 149/88 09/08/16 00:05 115 27 09/08/16 00:00 145/99 09/07/16 23:35 115 23 94 Nasal Cannula 6.0 09/07/16 23:30 153/81 09/07/16 23:13 112 34 92 Nasal Cannula 6.0 09/07/16 23:10 92 Nasal Cannula 6.0 09/07/16 23:10 92 Nasal Cannula 6.0 09/07/16 23:08 30 90 Nasal Cannula 4.0 09/07/16 23:00 151/90 09/07/16 22:55 120 09/07/16 22:53 148/84 09/07/16 22:43 36.7 120 27 148/84 92 Nasal Cannula 4.0 09/07/16 22:43 92 Nasal Cannula 4.0 09/07/16 22:43 92 Nasal Cannula 4.0 09/07/16 22:43 92 Nasal Cannula 4.0 General Appearance: WD/WN, + mild distress, + thin, + pertinent finding ( appears mildly dyspneic, speaks in short sentences) Head: normocephalic, atraumatic Eyes: normal inspection, EOMI ENT: hearing grossly normal, pharynx normal, + pertinent finding (no obvious blood in the oral cavity) Neck: supple, no adenopathy, + pertinent finding (no JVD was appreciated) Respiratory/Chest: + wheezing, + pertinent finding (coarse breath sound bilaterally, bibasilar crackles) Cardiovascular: no gallop, no murmur, + tachycardia, + irregularly irregular Abdomen/GI: normal bowel sounds, soft, + distended (mildly distended) Back: no CVA tenderness, no muscle spasm Extremities/Musculoskelatal: + pedal edema (bilateral 2+ up to the shins) Neurologic/Psych: alert, normal mood/affect, oriented x 3 Skin: normal color, warm/dry, no rash Lymphatic: no adenopathy Diagnostics Laboratory Results Results Past 24 Hours Test 09/07/16 23:10 09/07/16 23:16 09/07/16 23:50 09/08/16 01:46 Range/Units White Blood Count 14.17 4.8-10.8 K/uL Red Blood Count 3.66 4.7-6.1 M/uL Hemoglobin 11.1 14.0-18.0 g/dL Hematocrit 34.3 42-52 % Mean Corpuscular Volume 93.7 80-100 fL Mean Corpuscular Hemoglobin 30.3 25-34 pg Mean Corpuscular Hemoglobin Concent 32.4 32-36 g/dl Platelet Count 17 130-400 K/uL Neutrophils (%) (Auto) 88.8 % Lymphocytes (%) (Auto) 5.1 % Monocytes (%) (Auto) 3.2 % Eosinophils (%) (Auto) 0.0 % Basophils (%) (Auto) 0.1 % Neutrophils # (Auto) 12.57 1.4-6.5 K/uL Lymphocytes # (Auto) 0.72 1.2-3.4 K/uL Monocytes # (Auto) 0.46 0.11-0.59 K/uL Eosinophils # (Auto) 0.00 0-0.5 K/uL Basophils # (Auto) 0.02 0-0.2 K/uL RDW Standard Deviation 59.0 36.4-46.3 fL RDW Coefficient of Variation 17.3 11.5-14.5 % Immature Granulocyte % (Auto) 2.8 % Immature Granulocyte # (Auto) 0.40 0.00-0.02 K/uL Nucleated RBC Absolute Count (auto) 0.27 0-0 K/uL Nucleated Red Blood Cells % 1.9 % Hypersegmented Polys 1+ Platelet Estimate SIGNIFIC DECREASED Tear Drop Cells 1+ Sodium Level 142 136-145 mmol/L Potassium Level 4.0 3.5-5.1 mmol/L Chloride Level 105 98-107 mmol/L Carbon Dioxide Level 31 21-32 mmol/L Anion Gap 6.0 3-11 mmol/L Blood Urea Nitrogen 22 7-18 mg/dl Creatinine 0.66 0.60-1.40 mg/dl Est Creatinine Clear Calc Drug Dose 89.4 ml/min Estimated GFR () 126.1 Estimated GFR (Non- 108.8 BUN/Creatinine Ratio 33.1 10-20 Random Glucose 109 70-99 mg/dl Calcium Level 8.7 8.5-10.1 mg/dl Total Bilirubin 0.4 0.2-1 mg/dl Aspartate Amino Transf (AST/SGOT) 46 15-37 U/L Alanine Aminotransferase (ALT/SGPT) 70 12-78 U/L Alkaline Phosphatase 152 45-117 U/L Creatine Kinase MB Ratio 0-3.0 Pro-B-Type Natriuretic Peptide 4494 0-900 pg/ml Total Protein 5.9 6.4-8.2 gm/dl Albumin 2.6 3.4-5.0 gm/dl Globulin 3.3 2.5-4.0 gm/dl Albumin/Globulin Ratio 0.8 0.9-2 Bedside Troponin I 1.700 0-0.045 ng/ml Urine Color YELLOW Urine Appearance CLEAR CLEAR Urine pH 7.0 4.5-7.5 Urine Specific [place] 1.014 1.000-1.030 Urine Protein 2+ NEG Urine Glucose (UA) 1+ NEG Urine Ketones NEG NEG Urine Occult Blood TRACE NEG Urine Nitrite NEG NEG Urine Bilirubin NEG NEG Urine Urobilinogen NEG NEG Urine Leukocyte Esterase NEG NEG Urine WBC (Auto) 0 0-5 /hpf Urine RBC (Auto) 0-4 0-4 /hpf Urine Hyaline Casts (Auto) 1-5 0-5 /lpf Urine Epithelial Cells (Auto) 0-5 0-5 /lpf Urine Bacteria (Auto) NEG NEG Microbiology Results 09/08/16 Blood Culture, Received Pending 09/07/16 Blood Culture, Received Pending Diagnostic Radiology Formal chest x-ray report is pending, My read, is that there is some increase in interstitial fullness particularly on the left. There are stable findings of his lung cancer on the right, which do somewhat obscure view of whether there is heart fullness on the right as well. Impression Assessment and Plan Documented By: Randy Cotter 56-year-old male with stage IV non-small cell lung carcinoma and history of DVT , PE, and failed Coumadin treatment, presenting with acute shortness of breath. In the ED, the patient is noted to be tachycardic, hypoxic. The patient had both a positive troponin as well as a positive proBNP. Patient also does have an extensive history of smoking, likely with some degree of obstructive airway disease. Differential for acute shortness of breath in this patient is wide and includes the following: Pulmonary embolism, acute coronary syndrome, pneumonia, COPD exacerbation. Our plan for him is as follows Acute shortness of breath - Differential as noted above - Pulmonary embolism: Repeat CT scan and bilateral lower extremity Dopplers; hold off on heparin infusion given history of hemoptysis, but will do prophylactic doses - COPD exacerbation: Solu-Medrol 40 mg IV twice a day, ipratropium/ levalbuterol nebulizers scheduled - CHF: 40 mg IV Lasix given in the ED, we will continue 41 g IV daily and reassess fluid status. Echocardiogram - Acute coronary syndrome: ASA 324 and nitro patch given in the emergency department; Trend cardiac enzymes, monitor in telemetry - Pneumonia: Levaquin 750 IV daily Stage IV non-small cell carcinoma the lung - Currently on salvage treatment with Opdivo - Recommend that day team review goals of care with the patient, and consider palliative care consult as needed Type 2 diabetes Mellitus - Type II diabetic diet - Hold home meds - Insulin sliding scale Thrombocytopenia - Platelet 17 - Possible secondary effect to Opdivo treatments - History reported of hemoptysis, though no obvious evidence of bleeding currently - Monitor daily platelets; no specific indication to transfuse the patient at this time Chronic pain - Likely secondary to advanced malignancy - Continue tramadol - Continue Roxanol - Continue fentanyl patch Chronic protein calorie malnutrition - Continue Boost DVT prophylaxis - SCD to the knee only Treatment may need to be escalated to IV heparin infusion, given high suspicion for recurrence of PE Due to reported history of hemoptysis, will await results of CT scan prior to changing anticoagulation CODE STATUS - Level I full code Disposition - Telemetry Resident Physician Supervision Note: Pt seen/examined independently. I discussed the case with the resident and agree with the findings and plan as documented in the note. Any exceptions or clarifications are listed here 56 y/o M w/Hx STG 4 ling CA - PE and coumadin failure - current treatment with Opdivo Presents with hemoptysis, SOB - very low platelets on initial labs CTA done may be consistent with infectious process, edema, worsening CA - new effusion present OE AAO x 3 B/L crackles - no air entry at bases - poor air movement S1,2 reg NT, ND P: We will treat for COPD in addition to PNM w/Levaquin Reg his hemoptysis - CT is neg for additional PE - may be related to CA and low platelet count The pt received ASA in the ER so that we will transfuse platelets as his count is 17 May need H/O eval as inpt if he does not improve to evaluate utility of current treatment Condsider pulm consult if hemoptysis worsens or does not resolve Level of Care Telemetry Resuscitation Status FULL RESUSCITATION VTE Prophylaxis VTE Risk Assessment Done? Y/N: Yes Risk Level: High Given or contraindicated: Enoxaparin (Lovenox)SQ
[2016-09-08 04:16] LABS: CKMB/CK RATIO 9.6 (0-3.0)
[2016-09-08] MEDS ORDERED: METHYLPREDNISOLONE IV 40 MG in SYRINGE 0 ML IV SCH (05:00)
[2016-09-08] MEDS ORDERED: MoRPHine SULFATE 2 MG/ML CARP ONE (05:16)
[2016-09-08] MEDS: ALBUT/IPRATROP 3MG/0.5MG NEB 3 ML VIAL INH SCH ×3 (05:35→10:59)
[2016-09-08] MEDS ORDERED: NURSING DECISION MEDICATION ORDER SCH (05:45)
[2016-09-08] MEDS ORDERED: HEPARIN SOD 5000 UNIT/0.5 ML CARP SC SCH (06:00)
[2016-09-08] MEDS ORDERED: MoRPHine SULFATE 4 MG/ML 1 ML CARP\\VIAL IV ONE (06:00)
[2016-09-08] MEDS: NITROGLYCERIN OINT 2% 1GM PACKET EXT SCH ×2 (06:11→12:00)
[2016-09-08] MEDS ORDERED: FUROSEMIDE 40 MG/4 ML VIAL ONE (06:23)
[2016-09-08 06:36] LABS: ISTAT ALLEN TEST Pass; ISTAT ARTERIAL BLOOD GAS HCO3 29 meq/L (19-24); ISTAT ARTERIAL BLOOD GAS PCO2 47 mmHg (35-46); ISTAT ARTERIAL BLOOD GAS PO2 79 mmHg (80-95); ISTAT ARTERIAL BLOOD GAS pH 7.39 (7.35-7.45); ISTAT CARBON DIOXIDE 30 mEq/l (24-31); ISTAT DELIVERY SYSTEM NonRb Mask; ISTAT FIO2 100 %; ISTAT SITE R Radial
[2016-09-08] MEDS ORDERED: MoRPHine SULFATE 5 MG/0.25 ML UDP PO PRN (06:45)
--- NOTE | 2016-09-08 06:58 | Critical Care Consultation ---
Critical Care Consultation Date of Consultation: Sep 08, 2016. Attending Physician: Randy Cotter MD Reason for Consultation: SOB History of Present Illness Pt is a 56yo inmate with previous admission to [facility]. Presented today to the ED due to increasing shortness of breath. He received both breathing treatments and morphine while still at the present with little improvement. 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 He is air hungry and panicking at times in the room. According to other medical documentation he has been coughing up blood however have not seen in the ICU today. Patient woke up short of breath, with chest pain described as a 6 out of 10 as achy. He states that it is aggravated by arm movement of him from bed to bed and repositioning. He states that this pain does radiate to his back. She continues to complain that he cannot get his breath yelling out for help at times. Patient has felt feverish , chills and sweats. He currently denies abdominal pain, weakness, numbness or tingling. I spoken to him at length about CODE STATUS. He wishes to have chest compression but refuses and will not consent to intubation. Past Medical/Surgical History Medical Problems: Chest pain Elevated troponin Malignant neoplasm of bronchus and lung, unspecified site Metastatic cancer to brain Pulmonary embolism Shortness of breath Solitary Pulmonary Nodule DVT Family History Diabetes mellitus FATHER Social History Smoking Status: Never Smoker Smokeless Tobacco Use: No Alcohol Use: none Drug Use: none Marital Status: single Housing Status: other Occupation Status: other Allergies Coded Allergies: Talc (Verified Allergy, Severe, SOB - Baby Powder, 09/02/16) Nafcillin (Verified Allergy, Unknown, sob,n/v, 09/02/16) Penicillins (Verified Allergy, Unknown, SHORTNESS OF BREATH, 09/02/16) Home Medications Scheduled Acetaminophen (Tylenol), 650 MG PO TID Budesonide/Formoterol Fumarate (Symbicort 160-4.5 Mcg/Act), 2 PUFFS INH BID Dexamethasone (Decadron), 6 MG PO BID Fentanyl (Fentanyl), 12 MCG TD Q3D@0900 Insulin Human Regular (Humulin R), UNITS SC UD Insulin Isophan/Regular (Humulin 70/30), 10 UNITS SC BID Nutritional Supplements (Boost), 1 BTL PO PC Omeprazole (Prilosec), 40 MG PO DAILY Oxygen (Oxygen), 2 LITERS NA UD Triamcinolone Acet (Triamcinolone Acetonide), 1 APPLN TOP TID Scheduled PRN Albuterol Hfa (Ventolin Hfa), 2 PUFFS INH QID PRN for Shortness of Breath Benzonatate (Tessalon Perles), 100 MG PO TID PRN for Cough Ipratropium-Albuterol (Duoneb), 1 TREATMENT INH QID PRN for Shortness of Breath Morphine Sulfate (Morphine Sulfate), 10 MG PO Q3H PRN for Pain Ondansetron Hcl (Zofran), 8 MG PO BID PRN for Nausea or Vomiting Tramadol (Ultram), 50 MG PO BID PRN for Pain Current Inpatient Medications Current Inpatient Medications Medications (Trade) Dose Ordered Sig/Jevon Route Start Time Stop Time Status Last Admin Dose Admin Acetaminophen (Tylenol Tab) 650 mg Q4H PRN PO 09/08/16 01:45 10/08/16 01:44 Al Hydrox/Mg Hydrox/Simethicone (Maalox Max Susp) 15 ml Q4H PRN PO 09/08/16 01:45 10/08/16 01:44 Magnesium Hydroxide (Milk Of Magnesia Susp) 30 ml Q12H PRN PO 09/08/16 01:45 10/08/16 01:44 Ondansetron HCl (Zofran Inj) 4 mg Q6H PRN IV 09/08/16 01:45 10/08/16 01:44 Nitroglycerin (Nitroglycerin 2% Oint) 1 inch Q6H EXT 09/08/16 06:00 10/08/16 05:59 09/08/16 06:11 1 INCH Polyethylene (Miralax Powder Packet) 17 gm DAILY PRN PO 09/08/16 01:45 10/08/16 01:44 Ioversol (Optiray 320) 100 ml UD PRN IV 09/08/16 02:00 09/12/16 01:59 Acetaminophen (Tylenol Tab) 650 mg TID PO 09/08/16 09:00 10/08/16 08:59 Albuterol (Ventolin Hfa Inhaler) 2 puffs QID PRN INH 09/08/16 02:00 10/08/16 01:59 Benzonatate (Tessalon Perles Cap) 100 mg TID PRN PO 09/08/16 02:00 10/08/16 01:59 Budesonide/ Formoterol Fumarate (Symbicort 160/ 4.5 Inh) 2 puffs BID INH 09/08/16 09:00 10/08/16 08:59 Fentanyl (Duragesic Patch) 12 mcg Q72H TD 09/09/16 10:00 09/23/16 09:59 Morphine Sulfate (Roxanol Oral Soln) 10 mg Q3H PRN PO 09/08/16 02:00 09/22/16 01:59 Enteral Nutritional Formula (Boost) 1 can PC PO 09/08/16 08:00 10/08/16 08:59 Ondansetron HCl (Zofran Tab) 8 mg BID PRN PO 09/08/16 02:00 10/08/16 01:59 Tramadol HCl (Ultram Tab) 50 mg BID PRN PO 09/08/16 02:00 10/08/16 01:59 Triamcinolone Acetonide (Kenalog 0.1% Oint) 1 appln TID TOP 09/08/16 09:00 10/08/16 08:59 Pantoprazole Sodium (Protonix Tab) 40 mg DAILY PO 09/08/16 09:00 10/08/16 08:59 Albuterol/ Ipratropium 3 ml 3 ml QIDR INH 09/08/16 08:00 10/08/16 07:59 09/08/16 05:35 3 ML Methylprednisolone Sodium Succinate 40 mg/Syringe 0.64 ml @ 1.5 mls/min Q12H IV 09/08/16 05:00 10/08/16 04:59 09/08/16 05:21 1.5 MLS/MIN Furosemide 40 mg/ Syringe 4 ml @ 4 mls/min DAILY IV 09/08/16 09:00 10/08/16 08:59 Levofloxacin/Prmx (Levaquin / D5W/ Premixed D5W) 150 ml @ 100 mls/hr Q24H IV 09/08/16 22:00 09/14/16 21:59 Miscellaneous (Fentanyl Patch Remove & Waste) 1 ea Q72H N/A 09/09/16 09:59 10/09/16 09:58 Miscellaneous Information (Check Fentanyl Patch Placement) 1 ea QS N/A 09/08/16 08:00 10/08/16 07:59 Review of Systems 12 systems reviewed and negative other than previously mentioned in the HPI. Physical Exam Date Time Temp Pulse Resp B/P Pulse Ox O2 Delivery O2 Flow Rate FiO2 09/08/16 06:05 36.3 117 28 154/101 92 Nasal Cannula 6.0 09/08/16 06:00 115 28 156/100 96 09/08/16 05:35 120 24 94 Non-Rebreather 100 09/08/16 05:00 108 27 155/93 93 09/08/16 04:54 102 26 159/89 92 09/08/16 04:00 106 24 159/89 92 09/08/16 03:18 111 23 154/104 93 09/08/16 01:05 111 31 95 Nasal Cannula 6.0 09/08/16 01:01 137/98 09/08/16 00:35 121 26 96 Nasal Cannula 6.0 09/08/16 00:31 149/88 09/08/16 00:05 115 27 09/08/16 00:00 145/99 09/07/16 23:35 115 23 94 Nasal Cannula 6.0 09/07/16 23:30 153/81 09/07/16 23:13 112 34 92 Nasal Cannula 6.0 09/07/16 23:10 92 Nasal Cannula 6.0 09/07/16 23:10 92 Nasal Cannula 6.0 09/07/16 23:08 30 90 Nasal Cannula 4.0 09/07/16 23:00 151/90 09/07/16 22:55 120 09/07/16 22:53 148/84 09/07/16 22:43 36.7 120 27 148/84 92 Nasal Cannula 4.0 09/07/16 22:43 92 Nasal Cannula 4.0 09/07/16 22:43 92 Nasal Cannula 4.0 09/07/16 22:43 92 Nasal Cannula 4.0 Vital Signs - as noted Laboratory Data - as noted Physical Exam: General - Acute Distress, with face mask in place at 6L Eyes - PERRL, EOMI No icterus, gaze conjugate ENT - Mucosa moist, no lesions or candidiasis Neck - Supple, trachea midline, no masses or lymphadenopathy, no JVD or bruits Lungs - No paradoxical chest wall movement, diminished breath sounds bilaterally with bibasilar crackles right worse than left, audible wheezes,no rhonchi Heart -sinus tachycardia, No murmur, rubs, clicks, or gallops appreciated Abdomen - BS present, no bruits noted, tympanic to percussion, soft, nontender, nondistended, no organomegaly Extremities - +3 Pitting edema, pedal pulses intact Neuro - A&O x 3 Strength extremities equal and appropriate bilaterally Reflexes: Bicep, brachioradialis, patellar, and plantar normal and equal CN:PERRL, EOMI, no facial asymmetry, uvula/tongue midline Laboratory Results Last 24 Hours Test 09/07/16 23:10 09/07/16 23:16 09/07/16 23:50 09/08/16 01:46 White Blood Count 14.17 K/uL Red Blood Count 3.66 M/uL Hemoglobin 11.1 g/dL Hematocrit 34.3 % Mean Corpuscular Volume 93.7 fL Mean Corpuscular Hemoglobin 30.3 pg Mean Corpuscular Hemoglobin Concent 32.4 g/dl Platelet Count 17 K/uL Neutrophils (%) (Auto) 88.8 % Lymphocytes (%) (Auto) 5.1 % Monocytes (%) (Auto) 3.2 % Eosinophils (%) (Auto) 0.0 % Basophils (%) (Auto) 0.1 % Neutrophils # (Auto) 12.57 K/uL Lymphocytes # (Auto) 0.72 K/uL Monocytes # (Auto) 0.46 K/uL Eosinophils # (Auto) 0.00 K/uL Basophils # (Auto) 0.02 K/uL RDW Standard Deviation 59.0 fL RDW Coefficient of Variation 17.3 % Immature Granulocyte % (Auto) 2.8 % Immature Granulocyte # (Auto) 0.40 K/uL Nucleated RBC Absolute Count (auto) 0.27 K/uL Nucleated Red Blood Cells % 1.9 % Hypersegmented Polys 1+ Platelet Estimate SIGNIFIC DECREASED Tear Drop Cells 1+ Sodium Level 142 mmol/L Potassium Level 4.0 mmol/L Chloride Level 105 mmol/L Carbon Dioxide Level 31 mmol/L Anion Gap 6.0 mmol/L Blood Urea Nitrogen 22 mg/dl Creatinine 0.66 mg/dl Est Creatinine Clear Calc Drug Dose 89.4 ml/min Estimated GFR () 126.1 Estimated GFR (Non- 108.8 BUN/Creatinine Ratio 33.1 Random Glucose 109 mg/dl Calcium Level 8.7 mg/dl Total Bilirubin 0.4 mg/dl Aspartate Amino Transf (AST/SGOT) 46 U/L Alanine Aminotransferase (ALT/SGPT) 70 U/L Alkaline Phosphatase 152 U/L Total Creatine Kinase 139 U/L Creatine Kinase MB 13.4 ng/ml Creatine Kinase MB Ratio 9.6 Pro-B-Type Natriuretic Peptide 4494 pg/ml Total Protein 5.9 gm/dl Albumin 2.6 gm/dl Globulin 3.3 gm/dl Albumin/Globulin Ratio 0.8 Bedside Troponin I 1.700 ng/ml Urine Color YELLOW Urine Appearance CLEAR Urine pH 7.0 Urine Specific [place] 1.014 Urine Protein 2+ Urine Glucose (UA) 1+ Urine Ketones NEG Urine Occult Blood TRACE Urine Nitrite NEG Urine Bilirubin NEG Urine Urobilinogen NEG Urine Leukocyte Esterase NEG Urine WBC (Auto) 0 /hpf Urine RBC (Auto) 0-4 /hpf Urine Hyaline Casts (Auto) 1-5 /lpf Urine Epithelial Cells (Auto) 0-5 /lpf Urine Bacteria (Auto) NEG Test 09/08/16 04:44 09/08/16 06:22 Blood Gas Sample Site R Radial Bedside Blood Gas pH (LAB) 7.39 Bedside Blood Gas pCO2 (LAB) 47 mmHg Bedside Blood Gas pO2 (LAB) 79 mmHg Bedside Blood Gas HCO3 (LAB) 29 meq/L Bedside Blood Gas Total CO2 30 mEq/l Bedside Blood Gas Base Excess (LAB) 4.0 meq/L Bedside Blood Gas O2 Saturation 96.0 % Jovan Test Pass Oxygen Delivery Device NonRb Mask Bedside FiO2 100 % Diagnostic Results CTA CHEST CXR Formal Reads Pending Assessment & Plan (1) Metastatic cancer to brain (2) Primary cancer of right lower lobe of lung (3) Chest pain (4) Congestive heart failure (5) Acute coronary syndrome (6) Shortness of breath (7) Chest pain (8) Elevated troponin Respiratory: * Patient will not consent to intubation in the event of respiratory arrest or distress * BiPAP it is ordered and ready in the room when necessary * Recent ABG 7.392/46.8/79/28.7 * Chest x-ray formal read pending * Lasix 40 repeated with Dee placed; prior dose of Lasix produced 1 L UOP * CT ruled out PE, Bilateral Venous Doppler Pending * Weaning regimen: * Albuterol 4 times a day when necessary shortness of breath * Symbicort twice a day Cardiac: * Troponins bumped; likely secondary to tachycardia * BNP elevated; obtain echo * Trend troponin q8 x3 * Repeat EKG with chest pain * Monitor on telemetry * Nitropaste in place : * Monitor electrolytes and replete as necessary * Shocked I's and O's * Dee to gravity in place * Currently -1 L GI: * Nothing by mouth while distressed or with BiPAP * GI prophylaxis started secondary to documented bloody sputum Neuro: * Ativan IV when necessary anxiety * Morphine for air hunger Heme: * H&H stable platelets 17 * Repeat CBC * Consider platelet transfusion; will need to consent patient for blood products * DVT Prophylaxis Held secondary to Plts 17k; SCD's Ordered ID: * Obtain lactic acid and pro calcitonin * Monitor fever curve * Unknown at this point in time if chest x-ray is infectious versus known lung cancer * Patient currently on Levaquin 750 every 24 hours Access: 1 right upper extremity PIV obtain second CCT: 30 minutes; Not including any billable procedures. Thank you for including us in the care of this patient. Please review Dr. Durbin's addendum for further recommendations. Problem Qualifiers (1) Congestive heart failure: Congestive heart failure type: unspecified congestive heart failure type Congestive heart failure chronicity: acute Qualified Codes: I50.9 - Heart failure, unspecified
--- NOTE | 2016-09-08 07:05 | DIAGNOSTIC IMAGING REPORT ---
ULTRASOUND BILATERAL LOWER EXTREMITY VENOUS CLINICAL HISTORY: Leg pain. Deep venous thrombosis. COMPARISON STUDY: Bilateral lower extremity venous ultrasound dated 08/08/2016. TECHNIQUE: Real-time, grayscale, and color Doppler sonography of the deep veins of the right and left lower extremity was performed from the inguinal crease to the calf. Compression and augmentation were utilized. FINDINGS: Right lower extremity: There is nonocclusive deep venous thrombosis seen throughout the right superficial femoral vein and within the popliteal vein. Occlusive thrombus is seen within the posterior tibial and peroneal veins. The right common femoral vein is patent and normally compressible. The greater saphenous vein any profunda femoris vein at the junction of the common femoral vein are clear. Left lower extremity: There is newly occlusive deep venous thrombosis identified within the common femoral vein. This becomes occlusive in the superficial femoral vein and extends into the calf. This is similar to previous. Superficial venous thrombus is seen within the greater saphenous vein at the junction with the common femoral vein as well as within the profunda femoris vein. IMPRESSION: Extensive bilateral lower extremity deep venous thrombosis as above. This is overall similar to the 08/08/2016 examination. Electronically signed by: Loki Hinojosa M.D. 09/08/2016 7:04 AM Dictated Date/Time: 09/08/2016 7:00 AM
[2016-09-08] MEDS ORDERED: NURSING VERBAL MED ORDER ONE (07:15)
[2016-09-08] MEDS ORDERED: LORAZEPAM 2 MG/ML 1 ML VIAL IV PRN (07:30)
--- NOTE | 2016-09-08 07:46 | DIAGNOSTIC IMAGING REPORT ---
CT ANGIOGRAPHY OF THE CHEST, PULMONARY EMBOLUS PROTOCOL CLINICAL HISTORY: Sudden onset shortness of breath and hypoxia. History of pulmonary embolus. Lung cancer. COMPARISON STUDY: Chest CT August 07, 2016 and chest radiograph September 07, 2016. TECHNIQUE: Following IV administration of 92 mL of Optiray-320, helical axial images of the chest were obtained utilizing the pulmonary embolus protocol. Maximal intensity projections and sagittal and coronal reformats were viewed on an independent 3D workstation. IV contrast was administered without complication. CT DOSE: 215.02 mGy.cm FINDINGS: Multiple pulmonary emboli are noted, including numerous signal emboli within the left lung. The embolus burden has diminished since exam of August 07, 2016. No new emboli are identified. The heart is mildly enlarged. There is no pericardial effusion. Right apical cavities are again noted. The amount of fluid within these cavities has increased. Several right hemithorax pleural-based masses are again noted. The dominant right apical mass measuring 4.3 cm has mildly increased in size since prior exam. A small right pleural effusion is increased in size. Left lower lobe airspace opacity is increased. Right lower lobe airspace opacity is also increased. Masslike opacities within the right middle and upper lobes are similar to prior exam. No suspicious osseous lesions are present. There is minimal debris within the trachea and right mainstem bronchus. A few hypodense hepatic lesions likely reflect cysts. IMPRESSION: 1. Several segmental pulmonary emboli with interval decrease in embolus burden since exam of August 07, 2016. No new pulmonary emboli identified. 2. Redemonstration of right apical cavities with interval increase in fluid within these cavities since CT of August 07, 2016. 3. Increase in left lower lobe airspace opacity since prior CT which favors pneumonia. Increase in right lower lung opacity which could reflect pneumonia or progressive malignancy. 4. Extensive parenchymal and pleural metastatic disease within the right hemithorax with slight progression since prior CT. Increase in a small right pleural effusion. Electronically signed by: Levy Ansari M.D. 09/08/2016 7:45 AM Dictated Date/Time: 09/08/2016 7:28 AM
--- NOTE | 2016-09-08 07:56 | Critical Care Progress Note ---
Critical Care Progress Note Date of Service Sep 08, 2016. Attending Subjective Global Decline in setting of terminal lung cancer Objective I spoke with Critical Care Team and Hospitalist. His condition is on the decline. Respiratory failure that is multifactorial. Ongoing pain and distress noted. He was moved to the ICU for greater oversight and care. I spoke with patient and reviewed records. A conservative and comfort oriented approach is required. Morphine and Ativan for distress to be provided. No ACLS measures per my discussion and review of the record. I do not expect him to survive this admission. Assessment & Plan (1) Metastatic cancer to brain I spoke with the critical care PA Gracie Jaime and agree with the evaluation and care plan. Will touch base with oncology to make them aware of the terminal decline. Comfort measures in place. (2) Primary cancer of right lower lobe of lung (3) Chest pain (4) Congestive heart failure (5) Acute coronary syndrome (6) Shortness of breath (7) Chest pain (8) Elevated troponin Consults & Procedures Consultants: none Procedures: none Data Medications: Current Inpatient Medications Medications (Trade) Dose Ordered Sig/Jevon Route Start Time Stop Time Status Last Admin Dose Admin Acetaminophen (Tylenol Tab) 650 mg Q4H PRN PO 09/08/16 01:45 10/08/16 01:44 Al Hydrox/Mg Hydrox/Simethicone (Maalox Max Susp) 15 ml Q4H PRN PO 09/08/16 01:45 10/08/16 01:44 Magnesium Hydroxide (Milk Of Magnesia Susp) 30 ml Q12H PRN PO 09/08/16 01:45 10/08/16 01:44 Ondansetron HCl (Zofran Inj) 4 mg Q6H PRN IV 09/08/16 01:45 10/08/16 01:44 Nitroglycerin (Nitroglycerin 2% Oint) 1 inch Q6H EXT 09/08/16 06:00 10/08/16 05:59 09/08/16 06:11 1 INCH Polyethylene (Miralax Powder Packet) 17 gm DAILY PRN PO 09/08/16 01:45 10/08/16 01:44 Ioversol (Optiray 320) 100 ml UD PRN IV 09/08/16 02:00 09/12/16 01:59 Acetaminophen (Tylenol Tab) 650 mg TID PO 09/08/16 09:00 10/08/16 08:59 Albuterol (Ventolin Hfa Inhaler) 2 puffs QID PRN INH 09/08/16 02:00 10/08/16 01:59 Benzonatate (Tessalon Perles Cap) 100 mg TID PRN PO 09/08/16 02:00 10/08/16 01:59 Budesonide/ Formoterol Fumarate (Symbicort 160/ 4.5 Inh) 2 puffs BID INH 09/08/16 09:00 10/08/16 08:59 Fentanyl (Duragesic Patch) 12 mcg Q72H TD 09/09/16 10:00 09/23/16 09:59 Enteral Nutritional Formula (Boost) 1 can PC PO 09/08/16 08:00 10/08/16 08:59 Ondansetron HCl (Zofran Tab) 8 mg BID PRN PO 09/08/16 02:00 10/08/16 01:59 Tramadol HCl (Ultram Tab) 50 mg BID PRN PO 09/08/16 02:00 10/08/16 01:59 Triamcinolone Acetonide (Kenalog 0.1% Oint) 1 appln TID TOP 09/08/16 09:00 10/08/16 08:59 Pantoprazole Sodium (Protonix Tab) 40 mg DAILY PO 09/08/16 09:00 10/08/16 08:59 Albuterol/ Ipratropium 3 ml 3 ml QIDR INH 09/08/16 08:00 10/08/16 07:59 09/08/16 05:35 3 ML Methylprednisolone Sodium Succinate 40 mg/Syringe 0.64 ml @ 1.5 mls/min Q12H IV 09/08/16 05:00 10/08/16 04:59 09/08/16 05:21 1.5 MLS/MIN Furosemide 40 mg/ Syringe 4 ml @ 4 mls/min DAILY IV 09/08/16 09:00 10/08/16 08:59 Levofloxacin/Prmx (Levaquin / D5W/ Premixed D5W) 150 ml @ 100 mls/hr Q24H IV 09/08/16 22:00 09/14/16 21:59 Miscellaneous (Fentanyl Patch Remove & Waste) 1 ea Q72H N/A 09/09/16 09:59 10/09/16 09:58 Miscellaneous Information (Check Fentanyl Patch Placement) 1 ea QS N/A 09/08/16 08:00 10/08/16 07:59 Morphine Sulfate (Roxanol Oral Soln) 10 mg Q3H PRN PO 09/08/16 06:45 09/22/16 06:44 Lorazepam (Ativan Inj) 1 mg Q30M PRN IV 09/08/16 07:30 10/08/16 07:29 09/08/16 07:31 1 MG Morphine Sulfate (MoRPHine SULFATE INJ) 4 mg Q15M PRN IV 09/08/16 07:30 09/22/16 07:29 I & O: 24-Hour Column 09/08/16 08:00 Intake Total 120 ml Output Total 1025 ml Balance -905 ml Vital Signs: Date Time Temp Pulse Resp B/P Pulse Ox O2 Delivery O2 Flow Rate FiO2 09/08/16 07:00 36.4 120 24 148/89 95 Non-Rebreather 100 09/08/16 06:05 36.3 117 28 154/101 92 Nasal Cannula 6.0 09/08/16 06:00 115 28 156/100 96 09/08/16 05:35 120 24 94 Non-Rebreather 100 09/08/16 05:00 108 27 155/93 93 09/08/16 04:54 102 26 159/89 92 09/08/16 04:00 106 24 159/89 92 09/08/16 03:18 111 23 154/104 93 09/08/16 01:05 111 31 95 Nasal Cannula 6.0 09/08/16 01:01 137/98 09/08/16 00:35 121 26 96 Nasal Cannula 6.0 09/08/16 00:31 149/88 09/08/16 00:05 115 27 09/08/16 00:00 145/99 09/07/16 23:35 115 23 94 Nasal Cannula 6.0 09/07/16 23:30 153/81 09/07/16 23:13 112 34 92 Nasal Cannula 6.0 09/07/16 23:10 92 Nasal Cannula 6.0 09/07/16 23:10 92 Nasal Cannula 6.0 09/07/16 23:08 30 90 Nasal Cannula 4.0 09/07/16 23:00 151/90 09/07/16 22:55 120 09/07/16 22:53 148/84 09/07/16 22:43 36.7 120 27 148/84 92 Nasal Cannula 4.0 09/07/16 22:43 92 Nasal Cannula 4.0 09/07/16 22:43 92 Nasal Cannula 4.0 09/07/16 22:43 92 Nasal Cannula 4.0 Laboratory Results: Last 24 Hours Test 09/07/16 23:10 09/07/16 23:16 09/07/16 23:50 09/08/16 01:46 White Blood Count 14.17 K/uL Red Blood Count 3.66 M/uL Hemoglobin 11.1 g/dL Hematocrit 34.3 % Mean Corpuscular Volume 93.7 fL Mean Corpuscular Hemoglobin 30.3 pg Mean Corpuscular Hemoglobin Concent 32.4 g/dl Platelet Count 17 K/uL Neutrophils (%) (Auto) 88.8 % Lymphocytes (%) (Auto) 5.1 % Monocytes (%) (Auto) 3.2 % Eosinophils (%) (Auto) 0.0 % Basophils (%) (Auto) 0.1 % Neutrophils # (Auto) 12.57 K/uL Lymphocytes # (Auto) 0.72 K/uL Monocytes # (Auto) 0.46 K/uL Eosinophils # (Auto) 0.00 K/uL Basophils # (Auto) 0.02 K/uL RDW Standard Deviation 59.0 fL RDW Coefficient of Variation 17.3 % Immature Granulocyte % (Auto) 2.8 % Immature Granulocyte # (Auto) 0.40 K/uL Nucleated RBC Absolute Count (auto) 0.27 K/uL Nucleated Red Blood Cells % 1.9 % Hypersegmented Polys 1+ Platelet Estimate SIGNIFIC DECREASED Tear Drop Cells 1+ Sodium Level 142 mmol/L Potassium Level 4.0 mmol/L Chloride Level 105 mmol/L Carbon Dioxide Level 31 mmol/L Anion Gap 6.0 mmol/L Blood Urea Nitrogen 22 mg/dl Creatinine 0.66 mg/dl Est Creatinine Clear Calc Drug Dose 89.4 ml/min Estimated GFR () 126.1 Estimated GFR (Non- 108.8 BUN/Creatinine Ratio 33.1 Random Glucose 109 mg/dl Calcium Level 8.7 mg/dl Total Bilirubin 0.4 mg/dl Aspartate Amino Transf (AST/SGOT) 46 U/L Alanine Aminotransferase (ALT/SGPT) 70 U/L Alkaline Phosphatase 152 U/L Total Creatine Kinase 139 U/L Creatine Kinase MB 13.4 ng/ml Creatine Kinase MB Ratio 9.6 Pro-B-Type Natriuretic Peptide 4494 pg/ml Total Protein 5.9 gm/dl Albumin 2.6 gm/dl Globulin 3.3 gm/dl Albumin/Globulin Ratio 0.8 Bedside Troponin I 1.700 ng/ml Urine Color YELLOW Urine Appearance CLEAR Urine pH 7.0 Urine Specific [place] 1.014 Urine Protein 2+ Urine Glucose (UA) 1+ Urine Ketones NEG Urine Occult Blood TRACE Urine Nitrite NEG Urine Bilirubin NEG Urine Urobilinogen NEG Urine Leukocyte Esterase NEG Urine WBC (Auto) 0 /hpf Urine RBC (Auto) 0-4 /hpf Urine Hyaline Casts (Auto) 1-5 /lpf Urine Epithelial Cells (Auto) 0-5 /lpf Urine Bacteria (Auto) NEG Test 09/08/16 04:44 09/08/16 06:22 09/08/16 06:59 09/08/16 07:30 Blood Gas Sample Site R Radial Bedside Blood Gas pH (LAB) 7.39 Bedside Blood Gas pCO2 (LAB) 47 mmHg Bedside Blood Gas pO2 (LAB) 79 mmHg Bedside Blood Gas HCO3 (LAB) 29 meq/L Bedside Blood Gas Total CO2 30 mEq/l Bedside Blood Gas Base Excess (LAB) 4.0 meq/L Bedside Blood Gas O2 Saturation 96.0 % Jovan Test Pass Oxygen Delivery Device NonRb Mask Bedside FiO2 100 % Test 09/08/16 07:43 Creatine Kinase MB Ratio Problem Qualifiers (1) Congestive heart failure: Congestive heart failure type: unspecified congestive heart failure type Congestive heart failure chronicity: acute Qualified Codes: I50.9 - Heart failure, unspecified
[2016-09-08] MEDS: BOOST VANILLA PO SCH ×6 (08:00→13:00)
[2016-09-08] MEDS ORDERED: CHECK FENTANYL PATCH PLACEMENT SCH (08:00)
[2016-09-08 08:11] LABS: HEMATOCRIT 37.6 % (42-52); MEAN CELL VOLUME 93.5 fL (80-100); MEAN CORPUSCULAR HEMOGLOBIN 30.3 pg (25-34); MEAN CORPUSCULAR HGB CONC 32.4 g/dl (32-36); RED BLOOD COUNT 4.02 M/uL (4.7-6.1); WHITE BLOOD COUNT 17.71 K/uL (4.8-10.8)
[2016-09-08 08:25] LABS: PLATELET COUNT 12 K/uL (130-400)
--- NOTE | 2016-09-08 08:25 | DIAGNOSTIC IMAGING REPORT ---
SINGLE VIEW CHEST CLINICAL HISTORY: Dyspnea. Lung cancer history. FINDINGS: An AP, portable, upright chest radiograph is compared to study dated 08/11/2016. Correlation is made with chest CT dated 08/07/2016. The examination is significantly degraded by portable technique and patient rotation. The heart is mildly enlarged. The pulmonary vasculature is noncongested. Advanced emphysema and chronic interstitial thickening are similar to previous. There is patchy bibasilar airspace consolidation. Fibrotic change in the right perihilar lung with a large right apical cavity and air-fluid level is similar to previous. 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 This was better characterized on previous CT scans. There is a small right pleural effusion. No pneumothorax is seen. The skeletal structures are osteopenic. The bony thorax is grossly intact. IMPRESSION: 1. Cardiomegaly and advanced emphysema. 2. There is bibasilar airspace consolidation as well as a small right pleural effusion. The left basilar consolidation is new from 08/11/2016 and the overall appearance suggests pneumonia. Clinical correlation will be required. 3. A large cavity filling the right upper lung and containing an air-fluid level is similar previous, as is right apical pleural metastatic disease. Electronically signed by: Loki Hinojosa M.D. 09/08/2016 8:24 AM Dictated Date/Time: 09/08/2016 8:20 AM
[2016-09-08 08:26] LABS: PLT ESTIMATE SIGNIFIC DECREASED
--- NOTE | 2016-09-08 08:27 | DIAGNOSTIC IMAGING REPORT ---
SINGLE VIEW CHEST CLINICAL HISTORY: Dyspnea. Lung cancer history. FINDINGS: An AP, portable, upright chest radiograph is compared to study dated 09/07/2016. Correlation is made with chest CT performed earlier the same day 09/08/2016. The examination is significantly degraded by portable technique and patient rotation. The heart is mildly enlarged. The pulmonary vasculature is noncongested. Advanced emphysema and chronic interstitial thickening are similar to previous. There is patchy bibasilar airspace consolidation. Fibrotic change in the right perihilar lung with a large right apical cavity and air-fluid level is similar to previous. 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 This was better characterized on previous CT scans. There is a small right pleural effusion. No pneumothorax is seen. The skeletal structures are osteopenic. The bony thorax is grossly intact. IMPRESSION: 1. No significant change from yesterday. 2. Cardiomegaly and advanced emphysema. 3. There is bibasilar airspace consolidation as well as a small right pleural effusion. The left basilar consolidation is new from 08/11/2016 and the overall appearance suggests pneumonia. Clinical correlation will be required. 4. Right perihilar fibrosis, a large air-fluid level containing cavity filling the right upper lung, as well as right apical pleural metastatic disease is similar to previous. Electronically signed by: Loki Hinojosa M.D. 09/08/2016 8:26 AM Dictated Date/Time: 09/08/2016 8:24 AM
[2016-09-08 08:28] LABS: BUN/CREATININE RATIO 35.2 (10-20); CREATININE 0.66 mg/dl (0.60-1.40); POTASSIUM 4.1 mmol/L (3.5-5.1)
[2016-09-08 08:35] LABS: CKMB/CK RATIO 10.7 (0-3.0)
[2016-09-08 08:54] LABS: CALCIUM 8.7 mg/dl (8.5-10.1)
[2016-09-08] MEDS: ACETAMINOPHEN 325 MG TAB PO SCH ×2 (08:57→14:00)
[2016-09-08] MEDS: TRIAMCINOLONE ACET 0.1% OINT 15 GM TUBE TOP SCH ×2 (08:58→14:00)
[2016-09-08] MEDS ORDERED: FENTANYL 12 MCG/HR TDSY TD SCH (09:00)
[2016-09-08] MEDS ORDERED: PANTOprazole SOD 40 MG TAB PO SCH (09:00)
[2016-09-08] MEDS ORDERED: FUROSEMIDE INJ 40 MG in SYRINGE 0 ML IV SCH (09:00)
[2016-09-08] MEDS ORDERED: BUDESONIDE/FORMOTEROL FUMARATE 160/4.5 60 PUFFS/INHALER INH SCH (09:00)
[2016-09-08] MEDS: MoRPHine SULFATE 4 MG/ML 1 ML CARP\\VIAL IV PRN ×2 (09:49→12:18)
--- NOTE | 2016-09-08 10:36 | ECHOCARDIOGRAM REPORT ---
*NOTICE TO RECEIVING LIBERTARIAN AGENCY This information is strictly Confidential and protected under [place] law. [place] law prohibits you from making any further disclosure of this information unless further disclosure is expressly permitted by the written consent of the person to whom it pertains or is authorized by law. A general authorization for the release of medical or other information is not sufficient for this purpose. Hospital accepts no responsibility if the information is made available to any other person, INCLUDING THE PATIENT. Interpretation Summary * Conclusions -- * 1. Technically limited study. * 2. Normal LV size. Normal LV wall thickness. * 3. Mildly reduced LV function. LVEF 40-45%. Inferior and septal wall hypokinesis. * 3. Normal RV size. Mildly reduced RV function. * 4. Mild-moderate aortic insufficiency. * 5. Mild mitral regurgitation. * 6. Normal estimated RA pressure. * 7. Small pericardial effusion. * 8. Compared with prior study on 06/11/2016: Mild LV dysfunction and inferior, septal wall motion abnormalities are new. Procedure Details * The study was technically limited. * The study was technically difficult. * Limited views were obtained. * There were technical limitations due to patient's inability to cooperate and poor positioning. * A contrast injection of Definity was performed to improve assessment of LV function. * Contrast was injected into an intravenous site in the left arm. * One vial of Definity ultrasound contrast was diluted in normal saline to a total volume of 10 ml. A total of '3' ml of solution was administered during imaging. * Lot # [id number] of Definity utilized for procedure. * Expiration date 08/30. * The attending nurse who injected the contrast agent was ANTHONY GARCIA RN. Left Ventricle * The left ventricle is grossly normal size. * There is normal left ventricular wall thickness. * Ejection Fraction = 40-45%. * There is severe septal hypokinesis. * There is moderate inferior wall hypokinesis. Right Ventricle * The right ventricle is not well visualized. * The right ventricle is grossly normal size. * The right ventricular systolic function is reduced as assessed by tricuspid annular plane systolic excursion (TAPSE) (TAPSE <1.6 cm). Atria * The left atrial size is normal. * Right atrial size is normal. Mitral Valve * The mitral valve is grossly normal. * There is mild mitral annular calcification. * There is no mitral valve stenosis. * There is mild mitral regurgitation. Tricuspid Valve * The tricuspid valve is not well visualized. * Significant tricuspid regurgitation is absent. Aortic Valve * The aortic valve is not well visualized. * No hemodynamically significant valvular aortic stenosis. * Mild to moderate aortic regurgitation. Pulmonic Valve * The pulmonic valve is not well visualized. Great Vessels * The aortic root and proximal ascending aorta are normal sized. Pericardium/Pleural * Small pericardial effusion. * There are no echocardiographic indications of cardiac tamponade. Great Vessels * Normal inferior vena cava size and collapsability with sniff indicates a normal right atrial pressure of 3 mmHg MMode 2D Measurements and Calculations IVSd 0.96 cm IVSs 1.0 cm LVIDd 4.7 cm LVIDs 3.7 cm LVPWd 0.87 cm LVPWs 1.3 cm IVS/LVPW 1.1 FS 20.4 % EDV(Teich) 101.3 ml ESV(Teich) 59.0 ml EF(Teich) 41.8 % EDV(cubed) 102.4 ml ESV(cubed) 51.6 ml EF(cubed) 49.6 % % IVS thick 9.0 % % LVPW thick 48.9 % LV mass(C)d 144.4 grams LV mass(C)dI 93.2 grams/m\S\2 LV mass(C)s 142.9 grams LV mass(C)sI 92.2 grams/m\S\2 SV(Teich) 42.3 ml SI(Teich) 27.3 ml/m\S\2 SV(cubed) 50.8 ml SI(cubed) 32.8 ml/m\S\2 LVAd ap4 36.2 cm\S\2 LVLd ap4 8.0 cm EDV(MOD-sp4) 134.4 ml EDV(sp4-el) 138.2 ml LVAs ap4 26.3 cm\S\2 LVLs ap4 7.3 cm ESV(MOD-sp4) 79.9 ml ESV(sp4-el) 80.7 ml EF(MOD-sp4) 40.6 % EF(sp4-el) 41.6 % LVAd ap2 38.5 cm\S\2 LVLd ap2 8.3 cm EDV(MOD-sp2) 148.4 ml EDV(sp2-el) 151.4 ml LVAs ap2 28.2 cm\S\2 LVLs ap2 7.6 cm ESV(MOD-sp2) 88.5 ml ESV(sp2-el) 89.1 ml EF(MOD-sp2) 40.4 % EF(sp2-el) 41.1 % LVLd %diff 3.3 % EDV(MOD-bp) 143.9 ml LVLs %diff 4.4 % ESV(MOD-bp) 86.9 ml EF(MOD-bp) 39.6 % SV(MOD-sp4) 54.5 ml SI(MOD-sp4) 35.2 ml/m\S\2 SV(MOD-sp2) 59.9 ml SI(MOD-sp2) 38.7 ml/m\S\2 SV(MOD-bp) 57.0 ml SI(MOD-bp) 36.8 ml/m\S\2 SV(sp4-el) 57.5 ml SI(sp4-el) 37.1 ml/m\S\2 SV(sp2-el) 62.3 ml SI(sp2-el) 40.2 ml/m\S\2 Doppler Measurements and Calculations MV E max cari 70.3 cm/sec MV dec time 0.06 sec Ao V2 max 88.4 cm/sec Ao max PG 3.1 mmHg Ao max PG (full) 0.50 mmHg LV V1 max PG 2.6 mmHg LV V1 max 81.0 cm/sec
[2016-09-08] MEDS ORDERED: CHECK FENTANYL (14:08)
--- NOTE | 2016-09-08 14:09 | Discharge Instructions ---
Discharge Instructions Date of Service Sep 08, 2016. Admission Reason for Admission: Chest Pain, Elevated Troponin, Sob Discharge Discharge Diagnosis / Problem: Chest pain, shortness of breath Discharge Goals Goal(s): Decrease discomfort Activity Recommendations Activity Limitations: as noted below Comfort Care/Hospice . Current Hospital Diet Patient's current hospital diet: AHA Diet (Heart Healthy), Diabetes Type 2 Diet Discharge Diet Recommended Diet: N/A Procedures Procedures Performed: None Pending Studies Studies pending at discharge: no Laboratory Results Hemoglobin A1c Test 08/07/16 15:10 Range/Units Estimated Average Glucose 189 mg/dl Hemoglobin A1c 8.2 H 4.5-5.6 % Lipid Panel Test 06/11/16 06:05 Range/Units Triglycerides Level 177 H 0-150 mg/dl Cholesterol Level 197 0-200 mg/dl HDL Cholesterol 69 mg/dl Cholesterol/HDL Ratio 2.9 LDL Cholesterol, Calculated 93 mg/dl Medical Emergencies . Who to Call and When: Medical Emergencies: If at any time you feel your situation is an emergency, please call 911 immediately. . Non-Emergent Contact Non-Emergency issues call your: Primary Care Provider Contact Number: [facility] . . "Provider Documentation" section prepared by Bryan Guillory. . VTE Core Measure Inpt VTE Proph given/why not?: Contraindicated
--- NOTE | 2016-09-08 14:31 | Discharge Summary ---
Discharge Summary Date of Service Sep 08, 2016. 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, with widespread metastatic disease Secondary Diagnoses/Problems: 1) diabetes 2) cancer pain 3) congestive heart failure Procedures: None Vaccinations: None Consultations: Critical care Pending Studies/Follow-Up: None Medication Reconciliation New Medications: [Check Fentanyl Patch Placement] () 1 EA EA 1 EA N/A QS Continued Medications: Morphine Sulfate (Morphine Sulfate) 20 Mg/1 Ml Soln 10 MG PO Q3H PRN for Pain Oxygen (Oxygen) Gas 2 LITERS NA UD Discontinued Medications: Acetaminophen (Tylenol) 325 Mg Tab 650 MG PO TID, TAB Albuterol Hfa (Ventolin Hfa) 200 Puffs/42347 Mcg Aers 2 PUFFS INH QID PRN for Shortness of Breath, #1 INHALER Benzonatate (Tessalon Perles) 100 Mg Cap 100 MG PO TID PRN for Cough, CAP Budesonide/Formoterol Fumarate (Symbicort 160-4.5 Mcg/Act) 60 Puffs/Inhaler Aero 2 PUFFS INH BID, #1 INHALER 3 Refills Dexamethasone (Decadron) 4 Mg Tab 6 MG PO BID, TAB Fentanyl (Fentanyl) 12 Mcg Tdsy 12 MCG TD Q3D@0900, #10 PATCH 0 Refills Insulin Human Regular (Humulin R) 100 Units/Ml Susp UNITS SC UD BS 200-250=2 UNITS, 251-300=4 UNITS, 301-350=6 UNITS, 351-400=8 UNITS, 401-500=10 UNITS, >500 CALL PROVIDER Insulin Isophan/Regular (Humulin 70/30) Susp 10 UNITS SC BID, VIAL Ipratropium-Albuterol (Duoneb) 3 Ml Nebu 1 TREATMENT INH QID PRN for Shortness of Breath, INHA Nutritional Supplements (Boost) 1 Liq Liq 1 BTL PO PC Omeprazole (Prilosec) 40 Mg Cap 40 MG PO DAILY, CAP Ondansetron Hcl (Zofran) 4 Mg Tab 8 MG PO BID PRN for Nausea or Vomiting, TAB Tramadol (Ultram) 50 Mg Tab 50 MG PO BID PRN for Pain, TAB Triamcinolone Acet (Triamcinolone Acetonide) 45 Appln/15 Gm Oint 1 APPLN TOP TID for 30 Days, #454 GM apply sparingly to scalp Admission Information HPI (per Admitting provider): The patient's 56-year-old male inmate, with stage IV non-small cell carcinoma of the lung, with a history of DVT, PE and Coumadin failure, who presents with acute shortness of breath for the past 1 day. The shortness of breath started suddenly this morning, while he was at rest. He also states that he feels constantly wheezy. He is also coughing up blood. States that this morning he woke up and suddenly felt short of breath. He also states that he is having a combination of midsternal and right anterior chest pain, 6 out of 10 described as "pressure and achy". He does state that the pain radiates to the back. There are no alleviating or exacerbating symptoms. The pain is constant. It is worsened by deep breathing and with any kind of movement. He also states that his anterior chest wall the right side is tender. He mentions that he has felt feverish, but the care team at the present, checked his temperature and he is never had objective fevers. Also states that he feels chills and sweats in the morning. Of note, this patient was diagnosed with a deep vein thrombosis and pulmonary embolism in general 2017. He was treated as an outpatient on Coumadin, but sustained DVT recurrence and was considered to be a Coumadin failure. On arrival, Coumadin was not listed in his medicine list, and he is unsure whether he is currently supposed to be taking it or not. In regards to his current treatments for lung cancer, he is having salvage treatment with Opdivo. Physical Exam (per Admitting): General Appearance: WD/WN, + mild distress, + thin, + pertinent finding ( appears mildly dyspneic, speaks in short sentences) Head: normocephalic, atraumatic Eyes: normal inspection, EOMI ENT: hearing grossly normal, pharynx normal, + pertinent finding (no obvious blood in the oral cavity) Neck: supple, no adenopathy, + pertinent finding (no JVD was appreciated) Respiratory/Chest: + wheezing, + pertinent finding (coarse breath sound bilaterally, bibasilar crackles) Cardiovascular: no gallop, no murmur, + tachycardia, + irregularly irregular Abdomen/GI: normal bowel sounds, soft, + distended (mildly distended) Back: no CVA tenderness, no muscle spasm Extremities/Musculoskelatal: + pedal edema (bilateral 2+ up to the shins) Neurologic/Psych: alert, normal mood/affect, oriented x 3 Skin: normal color, warm/dry, no rash Lymphatic: no adenopathy Physical Exam (per Admitting): The patient was admitted to the intensive care unit and the critical care/ manager lean team was consult. Based on the patient's history of stage IV lung cancer with widespread metastatic disease, his hemoptysis with progressive respiratory distress, his recent pulmonary embolism but inability to adequately anticoagulate due to marked thrombocytopenia, and the patient's wishes not to undergo intubation, mechanical ventilation, or advanced chronic life-support, the patient was subsequently moved to the general medical floor for comfort care. It was in the opinion of the critical care physician that the patient would not survive the hospitalization. Review of medical records, there is evidence of metastatic disease to the brain dating to February 2016. More recently in July 2016, there was a palliative care consult on the record in which the patient was informed of his poor prognosis. Upon my first contact with the patient around 2 PM, the patient was unresponsive on a face mask with a pulse oximetry of 92% on 10 L of oxygen. He had agonal respirations; he had been recently medicated with IV Ativan. Review with a morning blood work showed a leukocytosis of 17.71 and profound thrombus cytopenia of 12,000. A CT scan of the chest showed multiple pulmonary emboli, but less in comparison exam of 08/07/2016. No new emboli were identified. There was continued evidence of extensive parenchymal and pleural metastatic disease along with increased left lower lobe airspace opacity suggesting pneumonia. An echocardiogram to perform this morning compared to demonstrated new septal wall motion abnormalities. I telephoned the state correctional [place] [facility] and spoke to the [facility] staff. They were aware of the patient's poor prognosis and willing to provide hospice care in the [facility]. Based on the patient's condition, both peripheral IV sites will be left in so that comfort care medications may be administered. Based upon review of the patient's medical records combined with my examination today in the patient's marked decline over the last 24 hours , he is appropriate candidate for hospice services with a life expectancy likely less than 48 hours. Due to his unresponsiveness, I was unable to discuss end-of-life care with the patient but feel comfortable with the current plan based upon all the above and the prior documentation of an end-of-life discussion. Hospital Course See above Total time spent on discharge = 60 minutes This includes examination of the patient, discharge planning, medication reconciliation, and communication with other providers. Discharge Instructions Per discharge instructions
[2016-09-08 14:37] LABS: CKMB/CK RATIO 11.5 (0-3.0)
[2016-09-08] MEDS ORDERED: LEVOFLOXACIN / D5W 750 MG in PREMIXED IN D5W 150 ML IV SCH (22:00)
[2016-09-09] MEDS ORDERED: FENTANYL PATCH REMOVE & WASTE SCH (09:59)
[2016-09-09] MEDS ORDERED: FENTANYL 12 MCG/HR TDSY TD SCH (10:00)
[2016-09-11] MEDS ORDERED: FENTANYL PATCH REMOVE & WASTE SCH (08:59)
--- NOTE | 2016-09-11 13:00 | EDITING REQUIRED CODING QUERY ---
CODING QUERY To promote full compliance with coding requirements relating to patient care, provider participation is requested in all cases of genomics scientist uncertainty. Please assist us with the question(s) below: Coding Question(s): Dr. Guillory, COPD with acute exacerbation and pneumonia were both documented in the H&P, but not on the discharge summary. Please clarify if: ( ) COPD exacerbation was present and treated during this admission ( ) COPD exacerbation was ruled out ( X) Other, please explain Unable to determine. And ( ) Pneumonia was present and treated during this admission ( ) Pneumonia was ruled out ( X) Other, please explain Unable to determine. While it was suggested by CT Scan upon admission, when I assumed care for the patient all treatment had been stopped in favor of comfort care. The CT findings could represent progressive malignancy - and not pneumonia. The patient was discharged for hospice care before a clinical diagnosis could be confirmed. diagnosis could be confirmed. Physician's Response(s): Thank you for your time, EDDIE Garcia, SENIOR QUALITY METHODS SPECIALIST
== END 2016-09-08 15:29 | DRG 280 ==
LOC: ENRESERVTM → ENRESERVDT → EDBD 22:43 → C.EDB 22:47 → C.MSICU 09-08 01:46 → C.MS2W 09-08 12:09
PROVIDERS: ADMIT Student in an Organized Health Care Education/Training Program; ATTEND Internal Medicine
DX: I21.4 Non-ST elevation (NSTEMI) myocardial infarction (principal); I26.99 Other pulmonary embolism without acute cor pulmonale; J18.9 Pneumonia, unspecified organism; J96.90 Respiratory failure, unspecified, unspecified whether with hypoxia or hypercapnia; R04.2 Hemoptysis; C79.31 Secondary malignant neoplasm of brain; C34.11 Malignant neoplasm of upper lobe, right bronchus or lung; C78.2 Secondary malignant neoplasm of pleura; J44.1 Chronic obstructive pulmonary disease with (acute) exacerbation; E46 Unspecified protein-calorie malnutrition; D69.6 Thrombocytopenia, unspecified; G89.3 Neoplasm related pain (acute) (chronic); E11.9 Type 2 diabetes mellitus without complications; I50.9 Heart failure, unspecified; F41.9 Anxiety disorder, unspecified; Z51.5 Encounter for palliative care; Z68.24 Body mass index [BMI] 24.0-24.9, adult; Z99.81 Dependence on supplemental oxygen; Z86.718 Personal history of other venous thrombosis and embolism; Z87.891 Personal history of nicotine dependence; Z79.51 Long term (current) use of inhaled steroids; Z79.52 Long term (current) use of systemic steroids; Z79.4 Long term (current) use of insulin; Z79.891 Long term (current) use of opiate analgesic; Z79.899 Other long term (current) drug therapy